=== PATIENT | male | born 1955 | race Caucasian/White ===

== ENCOUNTER → 2020-03-19 14:25 | Outpatient (BNVA) | payer OTHER, SELFPAY | PROVIDERS: PCP Family Medicine; Referring Provider Family Medicine; Visit Provider Internal Medicine | DX: J44.9 Chronic obstructive pulmonary disease, unspecified (principal); J98.4 Other disorders of lung; G47.33 Obstructive sleep apnea (adult) (pediatric); E66.9 Obesity, unspecified; Z68.34 Body mass index [BMI] 34.0-34.9, adult; Z79.899 Other long term (current) drug therapy | CPT/HCPCS: 99202 ==

== ENCOUNTER 2020-03-30 12:46 | Outpatient (REF) | payer OTHER, SELFPAY ==
--- NOTE | 2020-03-30 17:44 | PFT_ITS ---
INDICATION: COPD. SPIROMETRY: The FEV1 to FVC of 35% with an FEV1 of 1.09 L, which is 31% of predicted, and FVC of 3.11 L, which is 67% of predicted. There was a significant response to bronchodilators noted. Also, the patient has severe small airways disease. Maximum voluntary ventilation only 27% of predicted. LUNG VOLUMES: Total lung capacity 113% of predicted with a residual volume of 254% of predicted. DIFFUSION CAPACITY: 48% of predicted. COMPARISONS: I do not have any available. INTERPRETATION: There is an obstructive ventilatory defect consistent with very severe chronic obstructive pulmonary disease. The patient does have a significant response to bronchodilators noted. The patient also has severe small airways disease contributing to a lot of his symptoms as well. His lung volumes also demonstrate significant air trapping due to the small airways disease and also moderate diffusion impairment. Clinical correlation warranted. Jorge Benitez MD MR/MODL / [id number]
== END 2020-03-30 12:47 | disposition home or self-care (01) ==
LOC: HO.RESP 12:46
PROVIDERS: Visit Provider Internal Medicine
DX: J44.9 Chronic obstructive pulmonary disease, unspecified (principal); J98.4 Other disorders of lung; E66.9 Obesity, unspecified
CPT/HCPCS: 94060; 94727; 94729

== ENCOUNTER → 2020-04-20 13:59 | Outpatient (BNVA) | payer OTHER, SELFPAY | PROVIDERS: PCP Internal Medicine; Visit Provider Internal Medicine | DX: G47.33 Obstructive sleep apnea (adult) (pediatric) (principal); E66.9 Obesity, unspecified; J44.9 Chronic obstructive pulmonary disease, unspecified; J45.909 Unspecified asthma, uncomplicated; J30.9 Allergic rhinitis, unspecified | CPT/HCPCS: 99212 ==

== ENCOUNTER → 2020-06-02 13:13 | Outpatient (BNVA) | payer OTHER, SELFPAY | PROVIDERS: PCP Internal Medicine; Visit Provider Internal Medicine | DX: J45.909 Unspecified asthma, uncomplicated (principal); J98.4 Other disorders of lung; E66.9 Obesity, unspecified; G47.33 Obstructive sleep apnea (adult) (pediatric) | CPT/HCPCS: 99212 ==

== ENCOUNTER → 2020-08-06 13:46 | Outpatient (BNVA) | payer OTHER, SELFPAY | PROVIDERS: PCP Internal Medicine; Visit Provider Internal Medicine | DX: G47.33 Obstructive sleep apnea (adult) (pediatric) (principal); J44.9 Chronic obstructive pulmonary disease, unspecified; J98.4 Other disorders of lung; E66.9 Obesity, unspecified; J30.9 Allergic rhinitis, unspecified | CPT/HCPCS: 99212 ==

== ENCOUNTER → 2020-12-01 14:06 | Outpatient (BNVA) | payer OTHER, SELFPAY | PROVIDERS: PCP Internal Medicine; Visit Provider Internal Medicine | DX: J30.9 Allergic rhinitis, unspecified (principal); J45.909 Unspecified asthma, uncomplicated; J44.9 Chronic obstructive pulmonary disease, unspecified; J98.4 Other disorders of lung; E66.9 Obesity, unspecified; G47.33 Obstructive sleep apnea (adult) (pediatric) | CPT/HCPCS: 99212 ==

== ENCOUNTER → 2021-05-17 15:51 | Outpatient (BNVA) | payer OTHER, SELFPAY | PROVIDERS: Visit Provider Internal Medicine | DX: J98.4 Other disorders of lung (principal); J44.9 Chronic obstructive pulmonary disease, unspecified; J45.909 Unspecified asthma, uncomplicated; G47.33 Obstructive sleep apnea (adult) (pediatric); E66.9 Obesity, unspecified; Z68.33 Body mass index [BMI] 33.0-33.9, adult | CPT/HCPCS: 99212 ==

== ENCOUNTER → 2021-11-03 10:04 | Outpatient (BNVA) | payer OTHER, SELFPAY | PROVIDERS: Visit Provider Internal Medicine | DX: J44.1 Chronic obstructive pulmonary disease with (acute) exacerbation (principal); G47.33 Obstructive sleep apnea (adult) (pediatric); J30.9 Allergic rhinitis, unspecified; J98.4 Other disorders of lung; E66.9 Obesity, unspecified; G47.34 Idiopathic sleep related nonobstructive alveolar hypoventilation; Z79.899 Other long term (current) drug therapy; Z99.81 Dependence on supplemental oxygen | CPT/HCPCS: 99212 ==

== ENCOUNTER → 2021-12-20 14:21 | Outpatient (BNVA) | payer OTHER, SELFPAY | PROVIDERS: Visit Provider Internal Medicine | DX: J44.9 Chronic obstructive pulmonary disease, unspecified (principal); J98.4 Other disorders of lung; E66.9 Obesity, unspecified; J30.9 Allergic rhinitis, unspecified; G47.34 Idiopathic sleep related nonobstructive alveolar hypoventilation; G47.33 Obstructive sleep apnea (adult) (pediatric); Z79.899 Other long term (current) drug therapy; Z99.89 Dependence on other enabling machines and devices | CPT/HCPCS: 99212 ==

== ENCOUNTER → 2022-04-27 14:43 | Outpatient (BNVA) | payer OTHER, SELFPAY | PROVIDERS: Visit Provider Internal Medicine | DX: J44.9 Chronic obstructive pulmonary disease, unspecified (principal); J30.9 Allergic rhinitis, unspecified; J98.4 Other disorders of lung; G47.33 Obstructive sleep apnea (adult) (pediatric); G47.34 Idiopathic sleep related nonobstructive alveolar hypoventilation; E66.9 Obesity, unspecified; Z68.36 Body mass index [BMI] 36.0-36.9, adult | CPT/HCPCS: 99212 ==

== ENCOUNTER → 2022-05-25 14:39 | Outpatient (BNVA) | payer OTHER, SELFPAY | PROVIDERS: Visit Provider Internal Medicine | DX: J44.9 Chronic obstructive pulmonary disease, unspecified (principal); J98.4 Other disorders of lung; J45.909 Unspecified asthma, uncomplicated; G47.33 Obstructive sleep apnea (adult) (pediatric); G47.34 Idiopathic sleep related nonobstructive alveolar hypoventilation; E66.9 Obesity, unspecified | CPT/HCPCS: 99212 ==

== ENCOUNTER → 2022-08-23 13:34 | Outpatient (BNVA) | payer OTHER, SELFPAY | PROVIDERS: PCP Family Medicine; Visit Provider Internal Medicine | DX: J44.9 Chronic obstructive pulmonary disease, unspecified (principal); J45.909 Unspecified asthma, uncomplicated; G47.33 Obstructive sleep apnea (adult) (pediatric); E66.9 Obesity, unspecified | CPT/HCPCS: 99212 ==

== ENCOUNTER → 2022-10-05 10:12 | Outpatient (BNVA) | payer OTHER, SELFPAY | PROVIDERS: PCP Family Medicine; Visit Provider Internal Medicine | DX: J44.9 Chronic obstructive pulmonary disease, unspecified (principal); J45.909 Unspecified asthma, uncomplicated; J98.4 Other disorders of lung; J96.91 Respiratory failure, unspecified with hypoxia; G47.33 Obstructive sleep apnea (adult) (pediatric); E66.9 Obesity, unspecified; Z99.81 Dependence on supplemental oxygen | CPT/HCPCS: 99212 ==

== ENCOUNTER 2022-12-27 10:11 | Outpatient (AMB) | payer OTHER, SELFPAY ==
--- NOTE | 2022-12-27 10:15 | A.OFFVIS_ITS ---
Intake Vital Signs 12/27/22 10:16 Weight 208 lb 5.389 oz BP 122/66 Blood Pressure Location Lt brachial Pulse 87 Pulse Source Pulse Oximeter Pulse Oximetry (%) 93 Oxygen Delivery Method Room Air Intake Visit Reasons: Nephrectomy - 01/20 - [facility] Allergies beta mehul Allergy (Unknown, Uncoded 12/27/22 10:20) Unknown Medication List - Last Reconciled 12/27/22 by Aileen Louis LPN acetaminophen 650 mg PO Q4H PRN albuterol sulfate 90 mcg/actuation 1 puff inhalation QID albuterol sulfate 2.5 mg inhalation Q4-6H PRN aspirin 81 mg PO DAILY cetirizine (Zyrtec) 10 mg PO DAILY diltiazem HCl ER 300 mg PO DAILY fluticasone propion-salmeterol 500-50 mcg/dose (Wixela Inhub) 1 inh inhalation Q12H 90 days fluticasone propionate 50 mcg/actuation (Flonase Allergy Relief) 1 spray intranasal DAILY hydralazine 100 mg PO TID montelukast 10 mg PO BEDTIME olodaterol 2.5 mcg/actuation 2 inhalations inhalation DAILY omeprazole 20 mg PO DAILY sertraline 50 mg PO DAILY tamsulosin 0.4 mg PO DAILY HPI Nephrectomy - 01/20 - [facility] HPI Details Avinash is a very pleasant 67 year old male, former smoker, with underlying obstructive sleep apnea compliant with CPAP and severe COPD. He is moderately controlled on Stiolto, Wixela and albuterol MDI/neb, with mild dyspnea on exertion and intermittent wheezing. Today he presents for preoperative pulmonary evaluation for a left nephrectomy scheduled on 01/20/[address] Rock for a renal mass. He was admitted to [facility] after a considerable amount of hematuria and myocardial infarction approximately three months ago. At that time, he required supplemental oxygen and rehabilitation, but has not required additional oxygen for the past two months. He denies any recent respi ratory infections. Since undergoing physical therapy, he felt his endurance has significantly improved and as if he is back to baseline from a respiratory standpoint. He is being followed by cardiology and will be having a loop recorder implanted on 01/06/23. [facility] Medical History (Updated 12/27/22 @ 15:00 by Yue Drew NP) Actinic keratosis Allergic rhinitis Allergic rhinitis Asthma COPD (chronic obstructive pulmonary disease) COPD exacerbation Diverticulosis Esophageal reflux HTN (hypertension) Nocturnal hypoxemia Obesity DEANGELO (obstructive sleep apnea) Respiratory failure with hypoxia Restrictive lung disease Restrictive lung disease secondary to obesity Sleep apnea Solitary lung nodule Social History Patient Tobacco Use Status: Former Tobacco user Review of Systems Const Denies chills, Denies excessive sweating, Denies fever(s), Denies headache(s) and Denies night sweats Eyes Denies dry eyes, Denies irritation and Denies itchy eyes ENT Reports Normal hearing present and Denies headache(s) Card Denies chest pain, Denies chest pain at rest, Denies chest pain with activity, Denies claudication, Denies leg edema, Denies dyspnea, Denies orthopnea and Denies paroxysmal nocturnal dyspnea Resp Denies chest congestion, Denies cough, Denies excessive phlegm production, Denies pain on inspiration, Denies pain with cough, Denies dyspnea and Denies stridor Musc Denies myalgias Neuro Reports Normal hearing present and Denies headache(s) Endo Denies excessive sweating Jacob/Lymph Denies lymphadenopathy Aller/Immun Denies itchy eyes and Denies seasonal rhinorrhea Physical Exam Vital Signs: Last Vital Signs Pulse 87 12/27/22 10:16 BP 122/66 12/27/22 10:16 Pulse Ox 93 12/27/22 10:16 Oxygen Delivery Method Room Air 12/27/22 10:16 Const General: cooperative, healthy appearing, comfortable, no acute distress, well developed and alert Nutritional Appearance: obese Orientation/consciousness: patient oriented x3 Limitations: no limitations HEENT Head: Yes normal to inspection, Yes normocephalic and Yes atraumatic Ears: hearing grossly normal bilaterally and external ears normal Eyes General: appearance normal, both eyes and all related structures Eyelids: Yes eyelids normal Sclerae: sclerae normal EOM: EOMs intact bilaterally Neck Neck: Yes normal visual inspection and Yes no lymphadenopathy Lymphatic: no lymphadenopathy noted Chest Chest palpation & inspection: normal inspection of the chest Resp Effort & Inspection: normal respiratory effort, able to speak in complete sentences, no audible wheezes, no cough, no stridor, not tachypneic, no tripod positioning and no use of accessory muscles Auscultation: clear to auscultation bilaterally Cardio Jugular venous distension: no JVD Rate: regular rate Rhythm: regular rhythm Skin Other: warm, dry General skin exam: no rashes or lesions noted Neuro General: patient oriented x3 Cranial nerves: Yes Normal hearing present Cognition (Neuro): normal cognition Gait exam (Neuro): Normal gait present Extrem General: Yes normal to inspection, Yes capillary refill normal, Yes no clubbing, cyanosis or edema and Yes no pedal edema Psych Appearance: grossly normal and well kempt Speech and movement: Normal speech and movement present and Clear speech present Affect: normal affect Attitude: cooperative Thought process: Normal thought process present Thought content: Normal thought content present Insight: Good insight present (Psych) Judgement: Good judgement present (Psych) Office Procedures 6 Minute Walk Time:: 11:00 SPO2 % at rest: 95 Pulse at rest: 73 SPO2 % during excercise: 93 Pulse during excercise: 138 SPO2 % after excercise: 94 Pulse after excercise: 90 Distance in yards walked: 200 Karl Score: 5 Performance Observations:: Avinash walked on level ground without assistance, he walked on room air maintaining his SPO2 at 93%, no supplemental O2 needed. His HR did jump to 138 at 2 mins of walking, with a brief rest his HR recovered to 88 bpm. He did c/o of increased SOB with [place]. [id number] - 6 Minute Walk Spirometry Testing Spirometry Comments: Spirometry done in the office, Yue as the results results scanned to his chart. [id number]- Spirometry Results Reviewed Results Reviewed: Assessment & Plan Assessment & Plan (1) Encounter for preoperative pulmonary examination: Code(s): Z01.811 - Encounter for preprocedural respiratory examination (2) COPD (chronic obstructive pulmonary disease): Comment: Code(s): J44.9 - Chronic obstructive pulmonary disease, unspecified (3) Restrictive lung disease secondary to obesity: Code(s): J98.4 - Other disorders of lung; E66.9 - Obesity, unspecified (4) DEANGELO (obstructive sleep apnea): Code(s): G47.33 - Obstructive sleep apnea (adult) (pediatric) Plan Spirometry revealed severe obstructive defect, unchanged from prior spirometry two years ago. Full report above. 6MWT was performed and patient does not require any supplemental oxygen at this time. He feels as though he is back to his baseline using Stiolto, Wixela and albuterol MDI/neb. He denies any recent respiratory infections and there was no wheezing appreciated on exam. Secondary to patient's advanced COPD with moderate decrease in diffusion capacity and history of DEANGELO on CPAP therapy he is at intermediate risk for pulmonary perioperative complications. Consider extubation to BiPAP and perioperative bronchodilators. All questions were answered and patient is in agreement of plan. Will follow up at his regularly scheduled appointment with Dr. Palomo in January. Orders: Orders AMB 6 minute walk Today J44.9 - Chronic obstructive pulmonary disease, unspecified AMB Spirometry Testing Today J44.9 - Chronic obstructive pulmonary disease, unspecified Coding Level of Care Code Est Pt Level 4 (43409) Diagnoses Encounter for preoperative pulmonary examination Z01.811 COPD (chronic obstructive pulmonary disease) J44.9 Restrictive lung disease secondary to obesity J98.4; E66.9 DEANGELO (obstructive sleep apnea) G47.33 CPT Codes Coding ([id number]) Spirometry - CPT: 83693- Spirometry ([id number])
[2022-12-27 10:16] VITALS: BP 122/66; PULSE 87; O2SAT 93
[2022-12-27 11:17] VITALS: PULSE 73; O2SAT 95
== END 2022-12-27 11:24 | disposition home or self-care (01) ==
PROVIDERS: PCP Family Medicine; Visit Provider Nurse Practitioner Family
DX: Z01.811 Encounter for preprocedural respiratory examination (principal); J44.9 Chronic obstructive pulmonary disease, unspecified; J98.4 Other disorders of lung; E66.9 Obesity, unspecified; G47.33 Obstructive sleep apnea (adult) (pediatric)
CPT/HCPCS: 94010; 94618; 99214

== ENCOUNTER → 2022-12-27 10:11 | Outpatient (BNVA) | payer OTHER, SELFPAY | PROVIDERS: PCP Family Medicine; Visit Provider Nurse Practitioner Family | DX: Z01.811 Encounter for preprocedural respiratory examination (principal); J44.9 Chronic obstructive pulmonary disease, unspecified; J98.4 Other disorders of lung; G47.33 Obstructive sleep apnea (adult) (pediatric); N28.89 Other specified disorders of kidney and ureter | CPT/HCPCS: 94010; 94618; 99212 ==

== ENCOUNTER 2023-02-21 13:04 | Outpatient (AMB) | payer OTHER, SELFPAY ==
[2023-02-21 13:17] VITALS: BP 102/60; PULSE 80; O2SAT 95; BMI 29.1
--- NOTE | 2023-02-21 13:17 | MHC.OFFVIS ---
Intake Vital Signs 02/21/23 13:17 Height 5 ft 10 in Weight 203 lb BMI 29.1 BP 102/60 Blood Pressure Location Lt brachial Position Sitting Pulse 80 Pulse Source Pulse Oximeter Pulse Oximetry (%) 95 Oxygen Delivery Method Room Air Intake Visit Reasons: copd Intake Note: pt is here for follow up and states he had his kidney out, and feeling some short of breath, and states his copd comes and goes in stages, right now first thing in am and pm he starts to labor to breath. He does have a cpap and uses it as much as he can. 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: No Allergies beta mehul Allergy (Unknown, Uncoded 02/21/23 13:36) Unknown Medication List - Last Reconciled 02/21/23 by Mireya Palomo MD acetaminophen 650 mg PO Q4H PRN albuterol sulfate 90 mcg/actuation 1 puff inhalation QID albuterol sulfate 2.5 mg inhalation Q4-6H PRN aspirin 81 mg PO DAILY cetirizine (Zyrtec) 10 mg PO DAILY diltiazem HCl ER 300 mg PO DAILY fluticasone propion-salmeterol 500-50 mcg/dose (Wixela Inhub) 1 inh inhalation Q12H 90 days fluticasone propionate 50 mcg/actuation (Flonase Allergy Relief) 1 spray intranasal DAILY hydralazine 100 mg PO TID montelukast 10 mg PO BEDTIME olodaterol 2.5 mcg/actuation 2 inhalations inhalation DAILY omeprazole 20 mg PO DAILY sertraline 50 mg PO DAILY tamsulosin 0.4 mg PO DAILY Do you need a note to return to daycare/school/sports/work: No HPI copd HPI Details THIS 67 YEARS OLD VERY PLEASANT GENTLEMAN IS STATUS POST LEFT NEPHRECTOMY, BY DR. GARCIA AT [facility] ABOUT 8 WEEKS AGO. HE HAS RECOVERED VERY WELL. AT. THIS TIME FEELING WELL HE SAY IS HIS BREATHING IS REMAINING VERY STABLE EXCEPT FOR OCCASIONAL COUGH AND WHEEZING. HE ALSO HAS OBSTRUCTIVE SLEEP APNEA AND USES CPAP, BUT ONLY FOR ABOUT 3-4 HOURS PER NIGHT THAN THE MASK IS THROWN OFF. HE HAS LOST WEIGHT AND HIS BREATHING AT NIGHT IS GETTING BETTER. DURING THE DAYTIME HE IS ABLE TO WALK AROUND WITHOUT MUCH DISCOMFORT. PRIOR TO HIS SURGERY WE HAD CHECKED HIM FOR NEED OF OXYGEN AND HE DID NOT QUALIFY. [facility] Medical History Respiratory failure with hypoxia Nocturnal hypoxemia COPD exacerbation Allergic rhinitis Asthma Restrictive lung disease secondary to obesity COPD (chronic obstructive pulmonary disease) DEANGELO (obstructive sleep apnea) Obesity Solitary lung nodule Sleep apnea Restrictive lung disease Esophageal reflux Diverticulosis HTN (hypertension) Allergic rhinitis Actinic keratosis Social History Patient Tobacco Use Status: Former Tobacco user Review of Systems Const All systems reviewed & are unremarkable except as noted in HPI and below Eyes Reports no additional complaints ENT Reports nasal congestion (Mild off and on) Card Denies chest pain, Denies irregular heart rhythm and Denies leg edema Resp Reports as per HPI GI Reports no additional complaints Reports no additional complaints Musc Reports no additional complaints Skin/Breast Reports system reviewed and no additional complaints, except as documented Neuro Reports no additional complaints Psych Reports no additional complaints Endo Reports no additional complaints Physical Exam Vital Signs: Last Vital Signs Pulse 80 02/21/23 13:17 BP 102/60 02/21/23 13:17 Pulse Ox 95 02/21/23 13:17 Oxygen Delivery Method Room Air 02/21/23 13:17 BMI result Body Mass Index 29.1 Const Other: He has lost significant amount of weight since his last visit. General: comfortable, no acute distress (But somewhat short of breath during conversation), alert and awake Orientation/consciousness: patient oriented x3 HEENT Head: Yes normal to inspection General nose exam: No nasal polyps present and No nasal discharge present Face and sinus: Yes sinuses nontender Mouth: oropharynx normal Throat: Yes posterior oropharynx normal Eyes General: appearance normal, both eyes and all related structures Neck Neck: Yes normal visual inspection, Yes no lymphadenopathy, Yes trachea midline and Yes no JVD Thyroid: Thyroid normal Chest Chest palpation & inspection: normal inspection of the chest, normal palpation of entire chest wall and no tenderness Resp Other: Percussion note is resonant, breath sounds are distant with prolonged expiratory phase. LUNGS ARE CLEAR TODAY AND THERE ARE NO WHEEZES OR CREPITATIONS. Cardio Palpation: normal PMI Rate: regular rate and tachycardic Rhythm: regular rhythm Heart sounds: no gallops and no murmurs GI Inspection: Yes normal to inspection (THERE IS A SURGICAL SCAR WELL HEALED IN THE LEFT MID ABDOMEN) Palpation (GI): Soft to palpation, nontender, No hepatosplenomegaly present and no masses Auscultation: normal bowel sounds Back/Spine/Pelvis Thoracic/Lumbar Spine: thoracic and lumbar spine normal to inspection Skin General skin exam: no rashes or lesions noted Neuro General: patient oriented x3 and no focal motor deficits Cranial nerves: Yes CN's II-XII intact bilaterally Extrem General: Yes normal to inspection, Yes no clubbing, cyanosis or edema and Yes no calf tenderness Psych Appearance: grossly normal and well kempt Speech and movement: Normal speech and movement present Assessment & Plan Assessment & Plan (1) Allergic rhinitis: Comment: CONTROLLED , CONT. SINGULAIR 10 MG DAILY CETRIZINE 10 MG ONCE A DAY PRN . Code(s): J30.9 - Allergic rhinitis, unspecified (2) COPD (chronic obstructive pulmonary disease): Comment: WELL CONTROLLED AT THIS TIME, AND STABLE TX ; WIXELA 500-51 INHALATION B.I.D.. STIOLTO . 2 INHALATIONS DAILY ALBUTEROL HFA OR ALBUTEROL IN THE NEBULIZER Q 4-6 HOURS ONLY P.R.N.. Code(s): J44.9 - Chronic obstructive pulmonary disease, unspecified (3) Restrictive lung disease secondary to obesity: Comment: HE HAS SOME,RESTRICTION SECONDARY TO OBESITY, IT SHOULD IMPROVE HE LOSES WEIGHT. HE IS ALSO ADVISED TO DO DEEP BREATHING EXERCISES Code(s): J98.4 - Other disorders of lung; E66.9 - Obesity, unspecified (4) Obesity: Comment: Had a good discussion , Has lost 25 LBs in the last month and feels better . Continues to lose. More weight slowly Advised to Continue doing regular exercise on the treadmill and may walk at least one mile a day . Reduce intake of Carbs , Any further weight loss seems to be difficult for him. Code(s): E66.9 - Obesity, unspecified (5) DEANGELO (obstructive sleep apnea): Comment: HE IS A WELL KNOWN CASE OF OBSTRUCTIVE SLEEP APNEA, USE OF CPAP REMAINS SUBOPTIMAL , HIS USAGE IT ONLY ABOUT 3-4 HOURS PER NIGHT. ENCOURAGED TO USE CPAP MORE THAN 4 HOURS PER NIGHT. ALSO ENCOURAGED TO KEEP ON LOSING WEIGHT AND ONCE HIS WEIGHT IS BELOW 200 LBs HIS AMOUNT OF SLEEP APNEA MAY RESOLVE SIGNIFICANTLY. Code(s): G47.33 - Obstructive sleep apnea (adult) (pediatric) Medications: Refilled fluticasone propion-salmeterol 500-50 mcg/dose (Wixela Inhub) 90 days supply 1 inh inhalation Q12H 60 ea 3RF copd 90 days Coding Level of Care Code Est Pt Level 3 (49400) Diagnoses Allergic rhinitis J30.9 COPD (chronic obstructive pulmonary disease) J44.9 Restrictive lung disease secondary to obesity J98.4; E66.9 Obesity E66.9 DEANGELO (obstructive sleep apnea) G47.33
== END 2023-02-21 13:36 | disposition home or self-care (01) ==
PROVIDERS: PCP Family Medicine; Visit Provider Internal Medicine
DX: J30.9 Allergic rhinitis, unspecified (principal); J44.9 Chronic obstructive pulmonary disease, unspecified; J98.4 Other disorders of lung; E66.9 Obesity, unspecified; G47.33 Obstructive sleep apnea (adult) (pediatric)
CPT/HCPCS: 99213

== ENCOUNTER → 2023-02-21 13:04 | Outpatient (BNVA) | payer OTHER, SELFPAY | PROVIDERS: Visit Provider Internal Medicine | DX: J44.1 Chronic obstructive pulmonary disease with (acute) exacerbation (principal); J98.4 Other disorders of lung; G47.33 Obstructive sleep apnea (adult) (pediatric); G47.34 Idiopathic sleep related nonobstructive alveolar hypoventilation; R91.1 Solitary pulmonary nodule; Z87.891 Personal history of nicotine dependence; Z90.5 Acquired absence of kidney; Z99.89 Dependence on other enabling machines and devices | CPT/HCPCS: 99212 ==

== ENCOUNTER 2023-06-27 12:51 | Outpatient (AMB) | payer OTHER, SELFPAY ==
--- NOTE | 2023-06-27 13:11 | MHC.OFFVIS ---
Intake Vital Signs 06/27/23 13:12 Height 5 ft 10 in Weight 217 lb 2.485 oz BMI 31.2 BP 110/72 Blood Pressure Location Lt brachial Position Sitting Pulse 75 Pulse Source Pulse Oximeter Pulse Oximetry (%) 93 Oxygen Delivery Method Room Air Intake Visit Reasons: copd Intake Note: pt is here for follow up and states he has some fatigue from infusion therapy but states he has been having nasal congestion which than makes him breath through his mouth, causing very dry mouth. Digital Press Operator Required: No Allergies beta mehul Allergy (Unknown, Uncoded 06/27/23 13:27) Unknown Medication List - Last Reconciled 06/27/23 by Mireya Palomo MD acetaminophen 650 mg PO Q4H PRN albuterol sulfate 90 mcg/actuation 1 puff inhalation QID albuterol sulfate 2.5 mg inhalation Q4-6H PRN aspirin 81 mg PO DAILY cetirizine (Zyrtec) 10 mg PO DAILY diltiazem HCl ER 300 mg PO DAILY fluticasone propion-salmeterol 500-50 mcg/dose (Wixela Inhub) 1 inh inhalation Q12H 90 days fluticasone propionate 50 mcg/actuation (Flonase Allergy Relief) 1 spray intranasal DAILY hydralazine 100 mg PO TID montelukast 10 mg PO BEDTIME omeprazole 20 mg PO DAILY sertraline 50 mg PO DAILY tamsulosin 0.4 mg PO DAILY tiotropium-olodaterol 2.5-2.5 mcg/actuation (Stiolto Respimat) 2 puffs inhalation DAILY 90 days Do you need a note to return to daycare/school/sports/work: No HPI copd HPI Details 67 YEARS OLD GENTLEMAN WITH NURSES OF COPD, OBESITY AND OBSTRUCTIVE SLEEP APNEA IS HERE FOR FOLLOW-UP AFTER 4 MONTHS. Breathing bartlett he is doing okay except that he gets short of breath on walking around or climbing any stairs. He feels congested but mostly in his nose and sinuses. He has very little cough or expectoration and also denies any wheezing. Currently he is still on infusion therapy once a month for his anal cancer, post nephrectomy. For obstructive sleep apnea he does use the CPAP every night however he has discomfort due to nasal congestion. He wakes up with a dry mouth. His mask is fullface , and he does use the humidification. [facility] Medical History Respiratory failure with hypoxia Nocturnal hypoxemia COPD exacerbation Allergic rhinitis Asthma Restrictive lung disease secondary to obesity COPD (chronic obstructive pulmonary disease) DEANGELO (obstructive sleep apnea) Obesity Solitary lung nodule Sleep apnea Restrictive lung disease Esophageal reflux Diverticulosis HTN (hypertension) Allergic rhinitis Actinic keratosis Social History Patient Tobacco Use Status: Former Tobacco user Review of Systems Const All systems reviewed & are unremarkable except as noted in HPI and below Eyes Reports no additional complaints ENT Reports nasal congestion (Mild off and on) Card Denies chest pain, Denies irregular heart rhythm and Denies leg edema Resp Reports as per HPI GI Reports no additional complaints Reports no additional complaints Musc Reports no additional complaints Skin/Breast Reports system reviewed and no additional complaints, except as documented Neuro Reports no additional complaints Psych Reports no additional complaints Endo Reports no additional complaints Physical Exam Vital Signs: Last Vital Signs Pulse 75 06/27/23 13:12 BP 110/72 06/27/23 13:12 Pulse Ox 93 06/27/23 13:12 Oxygen Delivery Method Room Air 06/27/23 13:12 BMI result Body Mass Index 31.2 Const Other: He has lost significant amount of weight since his last visit. General: comfortable, no acute distress (But somewhat short of breath during conversation), alert and awake Orientation/consciousness: patient oriented x3 HEENT Head: Yes normal to inspection General nose exam: No nasal polyps present, No nasal discharge present and Other nasal findings present (Mild nasal congestion) Face and sinus: Yes sinuses nontender Mouth: oropharynx normal Throat: Yes posterior oropharynx normal Eyes General: appearance normal, both eyes and all related structures Neck Neck: Yes normal visual inspection, Yes no lymphadenopathy, Yes trachea midline and Yes no JVD Thyroid: Thyroid normal Chest Chest palpation & inspection: normal inspection of the chest, normal palpation of entire chest wall and no tenderness Resp Other: Percussion note is resonant, breath sounds are distant with prolonged expiratory phase. LUNGS ARE CLEAR TODAY AND THERE ARE NO WHEEZES OR CREPITATIONS. Cardio Palpation: normal PMI Rate: regular rate and tachycardic Rhythm: regular rhythm Heart sounds: no gallops and no murmurs GI Inspection: Yes normal to inspection (THERE IS A SURGICAL SCAR WELL HEALED IN THE LEFT MID ABDOMEN) Palpation (GI): Soft to palpation, nontender, No hepatosplenomegaly present and no masses Auscultation: normal bowel sounds Back/Spine/Pelvis Thoracic/Lumbar Spine: thoracic and lumbar spine normal to inspection Skin General skin exam: rashes and/or lesions noted (Has the erythematous rash on both forearms, secondary to infusion therapy) Neuro General: patient oriented x3 and no focal motor deficits Cranial nerves: Yes CN's II-XII intact bilaterally Extrem General: Yes normal to inspection, Yes no clubbing, cyanosis or edema and Yes no calf tenderness Psych Appearance: grossly normal and well kempt Speech and movement: Normal speech and movement present Assessment & Plan Assessment & Plan (1) Nocturnal hypoxemia: Comment: In his case NOCTURNAL HYPOXEMIA is part of his obstructive sleep apnea/hypoventilation syndrome. He is advised to continue using O2 2 L/minute along with CPAP at night. Code(s): G47.34 - Idiopathic sleep related nonobstructive alveolar hypoventilation Plan: as above (2) Allergic rhinitis: Comment: CONTROLLED , CONT. SINGULAIR 10 MG DAILY CETRIZINE 10 MG ONCE A DAY PRN . Code(s): J30.9 - Allergic rhinitis, unspecified Plan: Also advised to use Flonase 2 spray every day and he can use it during the day any time. At night before putting on the CPAP mask , he can use Azelastin nasal spray 1 spray in each nostril before putting on the CPAP. Script sent to [facility]. (3) COPD (chronic obstructive pulmonary disease): Comment: WELL CONTROLLED AT THIS TIME, AND STABLE TX ; WIXELA The strength is reduced to 250-50. New script sent to [facility]. STIOLTO . 2 INHALATIONS DAILY ALBUTEROL HFA OR ALBUTEROL IN THE NEBULIZER Q 4-6 HOURS ONLY P.R.N.. Code(s): J44.9 - Chronic obstructive pulmonary disease, unspecified Plan: Continue the current medications. The does of Wixela is reduced to 250-51 inhalation b.i.d. (4) DEANGELO (obstructive sleep apnea): Comment: HE IS A WELL KNOWN CASE OF OBSTRUCTIVE SLEEP APNEA, USE OF CPAP REMAINS SUBOPTIMAL , HIS USAGE IS ONLY ABOUT 3-4 HOURS PER NIGHT. ENCOURAGED TO USE CPAP MORE THAN 4 HOURS PER NIGHT. ALSO ENCOURAGED TO KEEP ON LOSING WEIGHT AND ONCE HIS WEIGHT IS BELOW 200 LBs HIS AMOUNT OF SLEEP APNEA MAY RESOLVE SIGNIFICANTLY. Code(s): G47.33 - Obstructive sleep apnea (adult) (pediatric) Plan: USE AZELASTIN NASAL SPRAY 1 SPRAY IN EACH NOSTRIL BEFORE PUTTING ON THE CPAP. Medications: New fluticasone propion-salmeterol 250-50 mcg/dose (Wixela Inhub) 1 inh inhalation BID 30 days 60 ea 5RF COPD azelastine administer into each nostril 1 spray intranasal BEDTIME 30 days 30 mL 3RF ALLERGIC RHINITIS Coding Level of Care Code Est Pt Level 4 (50968) Diagnoses Nocturnal hypoxemia G47.34 Allergic rhinitis J30.9 COPD (chronic obstructive pulmonary disease) J44.9 DEANGELO (obstructive sleep apnea) G47.33
[2023-06-27 13:12] VITALS: BP 110/72; PULSE 75; O2SAT 93; BMI 31.2
== END 2023-06-27 13:37 | disposition home or self-care (01) ==
PROVIDERS: PCP Family Medicine; Visit Provider Internal Medicine
DX: G47.34 Idiopathic sleep related nonobstructive alveolar hypoventilation (principal); J30.9 Allergic rhinitis, unspecified; J44.9 Chronic obstructive pulmonary disease, unspecified; G47.33 Obstructive sleep apnea (adult) (pediatric)
CPT/HCPCS: 99214

== ENCOUNTER → 2023-06-27 12:51 | Outpatient (BNVA) | payer OTHER, SELFPAY | PROVIDERS: PCP Family Medicine; Visit Provider Internal Medicine | DX: G47.34 Idiopathic sleep related nonobstructive alveolar hypoventilation (principal); J30.9 Allergic rhinitis, unspecified; J44.9 Chronic obstructive pulmonary disease, unspecified; G47.33 Obstructive sleep apnea (adult) (pediatric) | CPT/HCPCS: 99212 ==

== ENCOUNTER 2023-10-24 12:45 | Outpatient (AMB) | payer OTHER, SELFPAY ==
[2023-10-24 13:12] VITALS: BP 110/62; PULSE 101; O2SAT 96; BMI 28.0
--- NOTE | 2023-10-24 13:12 | A.OFFVIS_ITS ---
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 Required: No Allergies beta mehul Allergy (Unknown, Uncoded 10/24/23 13:28) Unknown Medication List - Last Reconciled 10/24/23 by Mireya Palomo MD acetaminophen 650 mg PO Q4H PRN albuterol sulfate 90 mcg/actuation 1 puff inhalation QID albuterol sulfate 2.5 mg inhalation Q4-6H PRN aspirin 81 mg PO DAILY azelastine 1 spray intranasal BEDTIME 30 days azelastine 1 spray intranasal BID 30 days MDD ALLERGIC RHINITIS / DEANGELO cetirizine (Zyrtec) 10 mg PO DAILY diltiazem HCl ER 300 mg PO DAILY fluticasone propion-salmeterol 500-50 mcg/dose (Wixela Inhub) 1 inh inhalation Q12H 90 days fluticasone propionate 50 mcg/actuation (Flonase Allergy Relief) 1 spray intranasal DAILY hydralazine 100 mg PO TID montelukast 10 mg PO BEDTIME omeprazole 20 mg PO DAILY sertraline 50 mg PO DAILY tamsulosin 0.4 mg PO DAILY tiotropium-olodaterol 2.5-2.5 mcg/actuation (Stiolto Respimat) 2 puffs inhalation DAILY 90 days Do you need a note to return to daycare/school/sports/work: No HPI HPI copd: Details: 67 years old , is here for follow-up for his obstructive sleep apnea as well as COPD. Breathing is remaining stable except that he has intermittent cough, sometime have bouts of wheezing, and gets short of breath on walking fast or climbing stairs. He continues to use his inhalers, . Regularly He his sleep apnea is being treated with the CPAP which he uses every night. Is being followed by the [place] outpatient service and we do not have any compliance report. He is also being treated for left renal cancer for which he has had left nephrectomy, and continues to get the IV infusion therapy every 2 weeks. Lately he has lost about 15 lb of weight, unintentionally. Not knowing what could be the reason. He has remote history of smoking but quit many years ago. He is being followed by his travel rn as well as oncologist on a regular basis. [facility] Medical History Respiratory failure with hypoxia Nocturnal hypoxemia COPD exacerbation Allergic rhinitis Asthma Restrictive lung disease secondary to obesity COPD (chronic obstructive pulmonary disease) DEANGELO (obstructive sleep apnea) Obesity Solitary lung nodule Sleep apnea Restrictive lung disease Esophageal reflux Diverticulosis HTN (hypertension) Allergic rhinitis Actinic keratosis Social History Patient Tobacco Use Status: Former Tobacco user Review of Systems Const All systems reviewed & are unremarkable except as noted in HPI and below Eyes Reports no additional complaints ENT Reports nasal congestion (Mild off and on) Card Denies chest pain, Denies irregular heart rhythm and Denies leg edema Resp Reports as per HPI GI Reports no additional complaints Reports no additional complaints Musc Reports no additional complaints Skin/Breast Reports system reviewed and no additional complaints, except as documented Neuro Reports no additional complaints Psych Reports no additional complaints Endo Reports no additional complaints Physical Exam Vital Signs: Last Vital Signs Pulse 101 H 10/24/23 13:12 BP 110/62 10/24/23 13:12 Pulse Ox 96 10/24/23 13:12 Oxygen Delivery Method Room Air 10/24/23 13:12 BMI result Body Mass Index 28.0 Const Other: He has lost significant amount of weight since his last visit. General: comfortable, no acute distress (But somewhat short of breath during conversation), alert and awake Orientation/consciousness: patient oriented x3 HEENT Head: Yes normal to inspection General nose exam: No nasal polyps present, No nasal discharge present and Other nasal findings present (Mild nasal congestion) Face and sinus: Yes sinuses nontender Mouth: oropharynx normal Throat: Yes posterior oropharynx normal Eyes General: appearance normal, both eyes and all related structures Neck Neck: Yes normal visual inspection, Yes no lymphadenopathy, Yes trachea midline and Yes no JVD Thyroid: Thyroid normal Chest Chest palpation & inspection: normal inspection of the chest, normal palpation of entire chest wall and no tenderness Resp Other: Percussion note is resonant, breath sounds are distant with prolonged expiratory phase. LUNGS ARE CLEAR TODAY AND THERE ARE NO WHEEZES OR CREPITATIONS. Cardio Palpation: normal PMI Rate: regular rate and tachycardic Rhythm: regular rhythm Heart sounds: no gallops and no murmurs GI Inspection: Yes normal to inspection (THERE IS A SURGICAL SCAR WELL HEALED IN THE LEFT MID ABDOMEN) Palpation (GI): Soft to palpation, nontender, No hepatosplenomegaly present and no masses Auscultation: normal bowel sounds Back/Spine/Pelvis Thoracic/Lumbar Spine: thoracic and lumbar spine normal to inspection Skin General skin exam: rashes and/or lesions noted (Has the erythematous rash on both forearms, secondary to infusion therapy) Neuro General: patient oriented x3 and no focal motor deficits Cranial nerves: Yes CN's II-XII intact bilaterally Extrem General: Yes normal to inspection, Yes no clubbing, cyanosis or edema and Yes no calf tenderness Psych Appearance: grossly normal and well kempt Speech and movement: Normal speech and movement present Assessment & Plan Assessment & Plan (1) COPD (chronic obstructive pulmonary disease): Comment: HE HAS MODERATELY SEVERE OBSTRUCTIVE AIRWAY DISORDER, WELL CONTROLLED AT THIS TIME, AND STABLE. HE GETS SHORT OF BREATH MAINLY WHEN HE BENDS DOWN TO CUSTOMER SUPPORT ASSOCIATE SOMETHING. Code(s): J44.9 - Chronic obstructive pulmonary disease, unspecified Category: Medical Plan: [place] ; WIXELA The strength is reduced to 250-50. New script sent to [facility]. STIOLTO . 2 INHALATIONS DAILY ALBUTEROL HFA OR ALBUTEROL IN THE NEBULIZER Q 4-6 HOURS ONLY P.R.N.. (2) Restrictive lung disease secondary to obesity: Comment: HE HAS SOME,RESTRICTION SECONDARY TO OBESITY, HE HAD LOST WEIGHT, CLINICALLY I FEEL THAT HIS RESTRICTIVE DISORDER IS MUCH LESS. Code(s): J98.4 - Other disorders of lung; E66.9 - Obesity, unspecified Category: Medical Plan: CONTINUE TO DO DEEP BREATHING EXERCISES 3 TIMES A DAY (3) Allergic rhinitis: Comment: AT PRESENT WELL CONTROLLED CONTROLLED , Code(s): J30.9 - Allergic rhinitis, unspecified Category: Medical Plan: CONT. SINGULAIR 10 MG DAILY FLONASE -50 1 SPRAY IN EACH NOSTRIL DAILY CETRIZINE 10 MG ONCE A DAY PRN . (4) Nocturnal hypoxemia: Comment: In his case NOCTURNAL HYPOXEMIA is part of his obstructive sleep apnea/hypoventilation syndrome. HE HAS BEEN USING O2 2 L/MINUTE ALONG WITH THE CPAP, BUT NOT REGULARLY. Code(s): G47.34 - Idiopathic sleep related nonobstructive alveolar hypoventilation Category: Medical Plan: ADVISED TO USE O2 2 L/MINUTE ALONG WITH THE CPAP (5) DEANGELO (obstructive sleep apnea): Comment: HE IS A WELL KNOWN CASE OF OBSTRUCTIVE SLEEP APNEA, WE DO NOT HAVE THE COMPLIANCE REPORT. HE CLAIMS THAT HE IS USING THE CPAP AT LEAST FOR 3-4 HOURS EVERY NIGHT Code(s): G47.33 - Obstructive sleep apnea (adult) (pediatric) Category: Medical Plan: ENCOURAGED TO USE CPAP MORE THAN 4 HOURS PER NIGHT. ALSO ENCOURAGED TO KEEP ON LOSING WEIGHT . Coding Level of Care Code Est Pt Level 3 (62405) Diagnoses COPD (chronic obstructive pulmonary disease) J44.9 Restrictive lung disease secondary to obesity J98.4; E66.9 Allergic rhinitis J30.9 Nocturnal hypoxemia G47.34 DEANGELO (obstructive sleep apnea) G47.33
== END 2023-10-24 13:40 | disposition home or self-care (01) ==
PROVIDERS: PCP Family Medicine; Visit Provider Internal Medicine
DX: J44.9 Chronic obstructive pulmonary disease, unspecified (principal); J98.4 Other disorders of lung; E66.9 Obesity, unspecified; J30.9 Allergic rhinitis, unspecified; G47.34 Idiopathic sleep related nonobstructive alveolar hypoventilation; G47.33 Obstructive sleep apnea (adult) (pediatric)
CPT/HCPCS: 99213

== ENCOUNTER → 2023-10-24 12:45 | Outpatient (BNVA) | payer OTHER, SELFPAY | PROVIDERS: PCP Family Medicine; Visit Provider Internal Medicine | DX: J44.9 Chronic obstructive pulmonary disease, unspecified (principal); G47.33 Obstructive sleep apnea (adult) (pediatric); J98.4 Other disorders of lung; J30.9 Allergic rhinitis, unspecified; E66.9 Obesity, unspecified; Z68.28 Body mass index [BMI] 28.0-28.9, adult; G47.34 Idiopathic sleep related nonobstructive alveolar hypoventilation; Z87.891 Personal history of nicotine dependence | CPT/HCPCS: 99212 ==

== ENCOUNTER 2024-02-22 14:49 | Outpatient (AMB) | payer OTHER, SELFPAY ==
--- NOTE | 2024-02-22 14:55 | A.OFFVIS_ITS ---
Vital Signs 02/22/24 14:57 Height 5 ft Weight 179 lb 10.828 oz BMI 35.1 BP 108/60 Blood Pressure Location Lt brachial Position Sitting Pulse 96 Pulse Source Pulse Oximeter Pulse Oximetry (%) 94 Oxygen Delivery Method Room Air Intake Visit Reasons: COPD Intake Note: pt is here for follow up and states he has finished his keytruda, and states he feels his breathing is spotty, which makes his heart rate up. Psychologist Chief Required: No Allergies beta mehul Allergy (Unknown, Uncoded 02/22/24 15:18) Unknown Medication List - Last Reconciled 02/22/24 by Mireya Palomo MD acetaminophen 650 mg PO Q4H PRN albuterol sulfate 90 mcg/actuation 1 puff inhalation QID albuterol sulfate 2.5 mg inhalation Q4-6H PRN aspirin 81 mg PO DAILY azelastine 1 spray intranasal BEDTIME 30 days azelastine 1 spray intranasal BID 30 days MDD ALLERGIC RHINITIS / DEANGELO cetirizine (Zyrtec) 10 mg PO DAILY diltiazem HCl ER 300 mg PO DAILY fluticasone propion-salmeterol 500-50 mcg/dose (Wixela Inhub) 1 inh inhalation Q12H 90 days fluticasone propionate 50 mcg/actuation (Flonase Allergy Relief) 1 spray intranasal DAILY hydralazine 100 mg PO TID montelukast 10 mg PO BEDTIME omeprazole 20 mg PO DAILY sertraline 50 mg PO DAILY tamsulosin 0.4 mg PO DAILY tiotropium-olodaterol 2.5-2.5 mcg/actuation (Stiolto Respimat) 2 puffs inhalation DAILY 90 days Do you need a note to return to daycare/school/sports/work: No HPI HPI COPD: Details: MR. MICHAEL, 68 YEARS OLD GENTLEMAN, IS A CASE OF SEVERE COPD, CHRONIC ALLERGIC RHINITIS, OBSTRUCTIVE SLEEP APNEA, AND HE COMES AFTER 6 MONTHS FOR FOLLOW-UP. DURING THE PAST YEAR HE HAS BEEN TREATED FOR KIDNEY CANCER, HE HAS HAD LEFT NEPHRECTOMY, AND TREATED WITH KEYTRUDA INFUSIONS EVERY MONTH , COMPLETED RECENTLY. HE HAS LOST LOT OF WEIGHT, DUE TO LACK OF APPETITE. HE DOES HAVE HISTORY OF SLEEP APNEA, AND EVEN THOUGH HE HAS LOST WEIGHT HE STILL CONTINUES TO HAVE SYMPTOMS OF SLEEP APNEA AND USES CPAP AT NIGHT. FOR THIS HE IS BEING FOLLOWED BY THE [facility]. TODAY HE CLAIMS THAT HIS BREATHING IS SOMEWHAT WORSE AND HE HAS BOUTS OF INCREASED SHORTNESS OF BREATH . WITH MINIMAL EXERTION HE LOSES HIS BREATH . HER THE CARDIOLOGY OF HIS HE WAS NOTED TO HAVE O2 DESATURATION ON WALKING. HE HAS HAD NO RECENT RESPIRATORY INFECTIONS. HE CONTINUES TO USE WIXELA 500-50 B.I.D. AND STIOLTO RESPIMAT 2 INHALATIONS B.I.D. [facility] Medical History Respiratory failure with hypoxia Nocturnal hypoxemia COPD exacerbation Allergic rhinitis Asthma Restrictive lung disease secondary to obesity COPD (chronic obstructive pulmonary disease) DEANGELO (obstructive sleep apnea) Obesity Solitary lung nodule Sleep apnea Restrictive lung disease Esophageal reflux Diverticulosis HTN (hypertension) Allergic rhinitis Actinic keratosis Social History Patient Tobacco Use Status: Former Tobacco user Review of Systems Const All systems reviewed & are unremarkable except as noted in HPI and below Eyes Reports no additional complaints ENT Reports nasal congestion (Mild off and on) Card Denies chest pain, Denies irregular heart rhythm and Denies leg edema Resp Reports as per HPI GI Reports no additional complaints Reports no additional complaints Musc Reports no additional complaints Skin/Breast Reports system reviewed and no additional complaints, except as documented Neuro Reports no additional complaints Psych Reports no additional complaints Endo Reports no additional complaints Physical Exam Vital Signs: Last Vital Signs Pulse 96 02/22/24 14:57 BP 108/60 02/22/24 14:57 Pulse Ox 94 02/22/24 14:57 Oxygen Delivery Method Room Air 02/22/24 14:57 BMI result Body Mass Index 35.1 LOOKS QUITE THIN, AND SLIGHTLY SHORT OF BREATH DURING CONVERSATION Const Other: He has lost significant amount of weight since his last visit. General: comfortable, no acute distress (But somewhat short of breath during conversation), alert and awake Orientation/consciousness: patient oriented x3 HEENT Head: Yes normal to inspection General nose exam: No nasal polyps present, No nasal discharge present and Other nasal findings present (Mild nasal congestion) Face and sinus: Yes sinuses nontender Mouth: oropharynx normal Throat: Yes posterior oropharynx normal Eyes General: appearance normal, both eyes and all related structures Neck Neck: Yes normal visual inspection, Yes no lymphadenopathy, Yes trachea midline and Yes no JVD Thyroid: Thyroid normal Chest Chest palpation & inspection: normal inspection of the chest, normal palpation of entire chest wall and no tenderness Resp Other: Percussion note is resonant, breath sounds are distant with prolonged expiratory phase. LUNGS ARE CLEAR TODAY AND THERE ARE NO WHEEZES OR CREPITATIONS. Cardio Palpation: normal PMI Rate: regular rate and tachycardic Rhythm: regular rhythm Heart sounds: no gallops and no murmurs GI Inspection: Yes normal to inspection (THERE IS A SURGICAL SCAR WELL HEALED IN THE LEFT MID ABDOMEN) Palpation (GI): Soft to palpation, nontender, No hepatosplenomegaly present and no masses Auscultation: normal bowel sounds Back/Spine/Pelvis Thoracic/Lumbar Spine: thoracic and lumbar spine normal to inspection Skin General skin exam: rashes and/or lesions noted (Has the erythematous rash on both forearms, secondary to infusion therapy) Neuro General: patient oriented x3 and no focal motor deficits Cranial nerves: Yes CN's II-XII intact bilaterally Extrem General: Yes normal to inspection, Yes no clubbing, cyanosis or edema and Yes no calf tenderness Psych Appearance: grossly normal and well kempt Speech and movement: Normal speech and movement present Office Procedures 6 Minute Walk Time:: 15:30 SPO2 % at rest: 94 Pulse at rest: 81 SPO2 % during excercise: 92 Pulse during excercise: 105 SPO2 % after excercise: 93 Pulse after excercise: 97 Distance in yards walked: 240 Karl Score: 6 Performance Observations:: Avinash walked on room air for the entire walk, he maintained his SPO2 92-94%, no supplemental O2 needed. He c/o SOB, wheeze and chest tightness, aware. 53373 - 6 Minute Walk Spirometry Testing Spirometry Comments: Spirometry done in the office, Dr. Palomo has the results results scanned to his chart. 69723- Spirometry Results Reviewed Results Reviewed: SPIROMETRY, SHOES PATTERN OF VERY SEVERE OBSTRUCTIVE AIRWAY DISORDER. COMPARED TO HIS SPIROMETRY LAST YEAR THE NUMBERS ARE FURTHER DECREASED. 6 MINUTES WALK DID NOT SHOW ANY SIGNIFICANT DESATURATION ON WALKING. CHEST X-RAY IS ORDERED WITH NEED TO BE REVIEWED. Assessment & Plan Assessment & Plan (1) Allergic rhinitis: Comment: AT PRESENT WELL CONTROLLED CONTROLLED , Code(s): J30.9 - Allergic rhinitis, unspecified Category: Medical Plan: MONTELUKAST 10 MG DAILY. FLONASE 2 SPRAY EACH NOSTRIL DAILY AZELASTIN 1 SPRAY IN EACH NOSTRIL DAILY. CETIRIZINE 10 MG ONCE A DAY P.R.N.. (2) COPD (chronic obstructive pulmonary disease): Comment: HE HAS MODERATELY SEVERE OBSTRUCTIVE AIRWAY DISORDER, WELL CONTROLLED AT THIS TIME, LATELY IT SEEMS TO HAVE GOTTEN WORSE , HE IS HAVING INCREASED SHORTNESS OF BREATH WITH EXERTION. Code(s): J44.9 - Chronic obstructive pulmonary disease, unspecified Category: Medical Plan: SPIROMETRY 6 MINUTES WALK CHEST X-RAY IS ORDERED. TX : CONTINUE WIXELA 500-51 INHALATION B.I.D. STIOLTO RESPIMAT 2 PUFFS B.I.D.. ALBUTEROL HFA 2 PUFFS Q 6 HOURS P.R.N. (3) DEANGELO (obstructive sleep apnea): Comment: HE IS A WELL KNOWN CASE OF OBSTRUCTIVE SLEEP APNEA, WE DO NOT HAVE THE COMPLIANCE REPORT. HE CLAIMS THAT HE IS USING THE CPAP AT LEAST FOR 4-5 HRS EVERY NIGHT IN SPITE OF WEIGHT LOSS HE CONTINUES TO HAVE SYMPTOMS OF OBSTRUCTIVE SLEEP APNEA. HE IS BEING FOLLOWED UP FOR THAT AND MANAGED AT THE [facility] Code(s): G47.33 - Obstructive sleep apnea (adult) (pediatric) Category: Medical Plan: CONTINUE TO USE CPAP REGULARLY (4) Nocturnal hypoxemia: Comment: In his case NOCTURNAL HYPOXEMIA WAS part of his obstructive sleep apnea/hypoventilation syndrome. HE DID NOT HAVE TO USE 0 2, AND CONTINUES TO USE THE CPAP. Code(s): G47.34 - Idiopathic sleep related nonobstructive alveolar hypoventilation Category: Medical Plan: KEEP ON USING THE CPAP REGULARLY EVERY NIGHT Orders: Orders XR chest 2V Today G47.34 - Idiopathic sleep related nonobstructive alveolar hypoventilation, J44.9 - Chronic obstructive pulmonary disease, unspecified, J45.909 - Unspecified asthma, uncomplicated AMB Spirometry Testing Today J44.9 - Chronic obstructive pulmonary disease, unspecified AMB 6 minute walk Today J44.9 - Chronic obstructive pulmonary disease, unspecified Coding Level of Care Code Est Pt Level 4 (94305) Diagnoses Allergic rhinitis J30.9 COPD (chronic obstructive pulmonary disease) J44.9 DEANGELO (obstructive sleep apnea) G47.33 Nocturnal hypoxemia G47.34 CPT Codes Coding ([id number]) Spirometry - CPT: 26450- Spirometry ([id number])
[2024-02-22 14:57] VITALS: BP 108/60; PULSE 96; O2SAT 94; BMI 35.1
[2024-02-22 15:41] VITALS: PULSE 81; O2SAT 94
== END 2024-02-22 15:44 | disposition home or self-care (01) ==
PROVIDERS: PCP Family Medicine; Visit Provider Internal Medicine
DX: J30.9 Allergic rhinitis, unspecified (principal); J44.9 Chronic obstructive pulmonary disease, unspecified; G47.33 Obstructive sleep apnea (adult) (pediatric); G47.34 Idiopathic sleep related nonobstructive alveolar hypoventilation
CPT/HCPCS: 94010; 94618; 99214

== ENCOUNTER 2024-02-22 14:49 | Outpatient (REF) | payer OTHER, SELFPAY | END 2024-02-22 14:50 | disposition home or self-care (01) | LOC: HO.XRAY 14:49 | PROVIDERS: PCP Family Medicine; Visit Provider Internal Medicine | DX: J44.9 Chronic obstructive pulmonary disease, unspecified (principal); J30.9 Allergic rhinitis, unspecified; G47.34 Idiopathic sleep related nonobstructive alveolar hypoventilation; G47.33 Obstructive sleep apnea (adult) (pediatric); Z99.89 Dependence on other enabling machines and devices | CPT/HCPCS: 71046; 94010; 94618; 99212 ==

== ENCOUNTER 2024-03-21 13:58 | Outpatient (AMB) | payer OTHER, SELFPAY ==
[2024-03-21 14:06] VITALS: BP 110/54; PULSE 84; O2SAT 96; BMI 25.3
--- NOTE | 2024-03-21 14:06 | A.OFFVIS_ITS ---
Vital Signs 03/21/24 14:06 Height 5 ft 10 in Weight 176 lb 5.917 oz BMI 25.3 BP 110/54 L Blood Pressure Location Lt brachial Position Sitting Pulse 84 Pulse Source Pulse Oximeter Pulse Oximetry (%) 96 Oxygen Delivery Method Room Air Intake Visit Reasons: copd Intake Note: pt is here for follow up and states his short of breath is getting worse, Nematologist Required: No Allergies beta mehul Allergy (Unknown, Uncoded 03/21/24 14:33) Unknown Medication List - Last Reconciled 03/21/24 by Mireya Palomo MD acetaminophen 650 mg PO Q4H PRN albuterol sulfate 90 mcg/actuation 1 puff inhalation QID albuterol sulfate 2.5 mg inhalation Q4-6H PRN aspirin 81 mg PO DAILY azelastine 1 spray intranasal BEDTIME 30 days azelastine 1 spray intranasal BID 30 days MDD ALLERGIC RHINITIS / DEANGELO cetirizine (Zyrtec) 10 mg PO DAILY diltiazem HCl ER 300 mg PO DAILY fluticasone propion-salmeterol 500-50 mcg/dose (Wixela Inhub) 1 inh inhalation Q12H 90 days fluticasone propionate 50 mcg/actuation (Flonase Allergy Relief) 1 spray intranasal DAILY hydralazine 100 mg PO TID montelukast 10 mg PO BEDTIME omeprazole 20 mg PO DAILY sertraline 50 mg PO DAILY tamsulosin 0.4 mg PO DAILY tiotropium-olodaterol 2.5-2.5 mcg/actuation (Stiolto Respimat) 2 puffs inhalation DAILY 90 days Do you need a note to return to daycare/school/sports/work: No HPI HPI copd: Details: THIS 68 YEARS OLD , IS HERE FOR FOLLOW-UP FOR HIS COPD. HE HAS A LONGSTANDING HISTORY OF COPD WHICH IS GRADUALLY GETTING WORSE. MAIN COMPLAINT IS THAT HE GETS SHORT OF BREATH ON MINIMAL WALKING ESPECIALLY IF HE HAS TO WALK UP HILLS. HE THINKS THAT HIS SHORTNESS OF BREATH IS GETTING LITTLE BIT WORSE THAT BEFORE. HE DENIES ANY SIGNIFICANT DEGREE OF WHEEZING. HE DOES HAVE SOME COUGH USUALLY WHEN HE TAKES A SHOWER AND COMES OUT, HE WILL COUGH UP AND CLEAR HIS THROAT. USES HIS INHALERS REGULARLY. HE HAS HAD NO RECENT RESPIRATORY INFECTION. I WALKED WITH HIM FOR A FEW MINUTES IN THE HALLWAY AT A RELATIVELY FAST PACE, HIS O2 SAT REMAINED IN MID 90S WITHOUT ANY DECLINE. [facility] Medical History Respiratory failure with hypoxia Nocturnal hypoxemia COPD exacerbation Allergic rhinitis Asthma Restrictive lung disease secondary to obesity COPD (chronic obstructive pulmonary disease) DEANGELO (obstructive sleep apnea) Obesity Solitary lung nodule Sleep apnea Restrictive lung disease Esophageal reflux Diverticulosis HTN (hypertension) Allergic rhinitis Actinic keratosis Social History Patient Tobacco Use Status: Former Tobacco user Review of Systems Const All systems reviewed & are unremarkable except as noted in HPI and below Eyes Reports no additional complaints ENT Reports nasal congestion (Mild off and on) Card Denies chest pain, Denies irregular heart rhythm and Denies leg edema Resp Reports as per HPI GI Reports no additional complaints Reports no additional complaints Musc Reports no additional complaints Skin/Breast Reports system reviewed and no additional complaints, except as documented Neuro Reports no additional complaints Psych Reports no additional complaints Endo Reports no additional complaints Physical Exam Vital Signs: Last Vital Signs Pulse 84 03/21/24 14:06 BP 110/54 L 03/21/24 14:06 Pulse Ox 96 03/21/24 14:06 Oxygen Delivery Method Room Air 03/21/24 14:06 BMI result Body Mass Index 25.3 LOOKS QUITE THIN, AND SLIGHTLY SHORT OF BREATH DURING CONVERSATION Const Other: He has lost significant amount of weight since his last visit. General: comfortable, no acute distress (But somewhat short of breath during conversation), alert and awake Orientation/consciousness: patient oriented x3 HEENT Head: Yes normal to inspection General nose exam: No nasal polyps present, No nasal discharge present and Other nasal findings present (Mild nasal congestion) Face and sinus: Yes sinuses nontender Mouth: oropharynx normal Throat: Yes posterior oropharynx normal Eyes General: appearance normal, both eyes and all related structures Neck Neck: Yes normal visual inspection, Yes no lymphadenopathy, Yes trachea midline and Yes no JVD Thyroid: Thyroid normal Chest Chest palpation & inspection: normal inspection of the chest, normal palpation of entire chest wall and no tenderness Resp Other: Percussion note is resonant, breath sounds are distant with prolonged expiratory phase. LUNGS ARE CLEAR TODAY AND THERE ARE NO WHEEZES OR CREPITATIONS. Cardio Palpation: normal PMI Rate: regular rate and tachycardic Rhythm: regular rhythm Heart sounds: no gallops and no murmurs GI Inspection: Yes normal to inspection (THERE IS A SURGICAL SCAR WELL HEALED IN THE LEFT MID ABDOMEN) Palpation (GI): Soft to palpation, nontender, No hepatosplenomegaly present and no masses Auscultation: normal bowel sounds Back/Spine/Pelvis Thoracic/Lumbar Spine: thoracic and lumbar spine normal to inspection Skin General skin exam: rashes and/or lesions noted (Has the erythematous rash on both forearms, secondary to infusion therapy) Neuro General: patient oriented x3 and no focal motor deficits Cranial nerves: Yes CN's II-XII intact bilaterally Extrem General: Yes normal to inspection, Yes no clubbing, cyanosis or edema and Yes no calf tenderness Psych Appearance: grossly normal and well kempt Speech and movement: Normal speech and movement present Assessment & Plan Assessment & Plan (1) COPD (chronic obstructive pulmonary disease): Comment: HE HAS MODERATELY SEVERE OBSTRUCTIVE AIRWAY DISORDER, WELL CONTROLLED AT THIS TIME, HE IS HAVING INCREASED SHORTNESS OF BREATH WITH EXERTION. EXERCISE INDUCED HYPOXEMIA WAS RULED OUT. Code(s): J44.9 - Chronic obstructive pulmonary disease, unspecified Category: Medical Plan: CONTINUE TO USE WIXELA 500-51 INHALATION B.I.D.. STIOLTO 2 INHALATIONS DAILY ALBUTEROL HFA 1 OR 2 PUFFS Q 6 HOURS P.R.N./ ALSO MAY USE ALBUTEROL SOLUTION IN THE NEBULIZER Q 4-6 HOURS P.R.N. WHEN AT HOME (2) DEANGELO (obstructive sleep apnea): Comment: HE IS A WELL KNOWN CASE OF OBSTRUCTIVE SLEEP APNEA, WE DO NOT HAVE THE COMPLIANCE REPORT. HE CLAIMS THAT HE IS USING THE CPAP AT LEAST FOR 4-5 HRS EVERY NIGHT IN SPITE OF WEIGHT LOSS HE CONTINUES TO HAVE SYMPTOMS OF OBSTRUCTIVE SLEEP APNEA. HE IS BEING FOLLOWED UP FOR THAT AND MANAGED AT THE [facility] Code(s): G47.33 - Obstructive sleep apnea (adult) (pediatric) Category: Medical Plan: ADVISED TO CONTINUE USING CPAP EVERY NIGHT (3) Allergic rhinitis: Comment: AT PRESENT WELL CONTROLLED CONTROLLED , Code(s): J30.9 - Allergic rhinitis, unspecified Category: Medical Plan: CONTINUE TO USE MONTELUKAST 10 MG DAILY. CONTINUE FLONASE-52 SPRAY IN EACH NOSTRIL DAILY CETIRIZINE 10 MG ONCE A DAY P.R.N. Medications: Refilled tiotropium-olodaterol 2.5-2.5 mcg/actuation (Stiolto Respimat) 2 puffs inhalation DAILY 90 days 4 grams 3RF COPD Coding Level of Care Code Est Pt Level 3 (90167) Diagnoses COPD (chronic obstructive pulmonary disease) J44.9 DEANGELO (obstructive sleep apnea) G47.33 Allergic rhinitis J30.9
== END 2024-03-21 14:31 | disposition home or self-care (01) ==
PROVIDERS: PCP Family Medicine; Visit Provider Internal Medicine
DX: J44.9 Chronic obstructive pulmonary disease, unspecified (principal); G47.33 Obstructive sleep apnea (adult) (pediatric); J30.9 Allergic rhinitis, unspecified
CPT/HCPCS: 99213

== ENCOUNTER → 2024-03-21 13:58 | Outpatient (BNVA) | payer OTHER, SELFPAY | PROVIDERS: PCP Family Medicine; Visit Provider Internal Medicine | DX: J44.9 Chronic obstructive pulmonary disease, unspecified (principal); J30.9 Allergic rhinitis, unspecified; G47.33 Obstructive sleep apnea (adult) (pediatric) | CPT/HCPCS: 99212 ==

== ENCOUNTER 2024-05-16 10:05 | Outpatient (REF) | payer OTHER, SELFPAY ==
--- NOTE | ~2024-05-16 | CT_ITS ---
CLINICAL HISTORY: J44.1 - Chronic obstructive pulmonary disease with (acute) exacerbation CT chest without contrast Comparison: None Findings: The heart is normal size. Is aortic and coronary arterial calcification. Maximum aortic transverse diameter is 4.1 x 3.6 cm in the ascending portion. The visualized thyroid and mediastinum are otherwise unremarkable. There are changes of pulmonary bullous disease with scarring or subsegmental atelectasis. The visualized upper abdomen is unremarkable. No acute fractures. IMPRESSION: 1. Pulmonary bullous disease with scarring or subsegmental atelectasis. This document has been electronically signed by: Kishore Weiss MD on 05/17/2024 08:25:59
== END 2024-05-16 10:06 | disposition home or self-care (01) ==
LOC: HO.CT 10:05
PROVIDERS: PCP Family Medicine; Visit Provider Internal Medicine
DX: R91.1 Solitary pulmonary nodule (principal); G47.33 Obstructive sleep apnea (adult) (pediatric); J44.1 Chronic obstructive pulmonary disease with (acute) exacerbation
CPT/HCPCS: 71250

== ENCOUNTER → 2024-05-16 10:07 | Outpatient (BNV) | payer OTHER, SELFPAY | PROVIDERS: PCP Family Medicine; Visit Provider Specialist | DX: J43.9 Emphysema, unspecified (principal) | CPT/HCPCS: 71250 ==

== ENCOUNTER 2024-09-12 13:43 | Outpatient (AMB) | payer OTHER, SELFPAY ==
[2024-09-12 14:02] VITALS: BP 114/54; PULSE 83; O2SAT 95; BMI 27.2
--- NOTE | 2024-09-12 14:02 | A.OFFVIS_ITS ---
Vital Signs 09/12/24 14:02 Height 5 ft 10 in Weight 189 lb 9.561 oz BMI 27.2 BP 114/54 L Blood Pressure Location Lt brachial Position Sitting Pulse 83 Pulse Source Pulse Oximeter Pulse Oximetry (%) 95 Oxygen Delivery Method Room Air Intake Visit Reasons: COPD Intake Note: pt is here for follow up and states he is feeling short of breath with pressure in the chest with exertion and tingling and buzzing in both shoulders. Instructional Support Technician Required: No Allergies beta mehul Allergy (Unknown, Uncoded 09/12/24 16:28) Unknown Medication List - Last Reconciled 09/12/24 by Mireya Palomo MD acetaminophen 650 mg PO Q4H PRN albuterol sulfate 90 mcg/actuation 1 puff inhalation QID albuterol sulfate 2.5 mg inhalation Q4-6H PRN aspirin 81 mg PO DAILY diltiazem HCl ER 300 mg PO DAILY fluticasone propion-salmeterol 500-50 mcg/dose (Wixela Inhub) 1 inh inhalation Q12H 90 days fluticasone propionate 50 mcg/actuation (Flonase Allergy Relief) 1 spray intranasal DAILY hydralazine 100 mg PO TID ipratropium bromide 2 sprays intranasal TID loratadine (Allergy Relief (loratadine)) 10 mg PO DAILY montelukast 10 mg PO BEDTIME omeprazole 20 mg PO DAILY sertraline 50 mg PO DAILY tamsulosin 0.4 mg PO DAILY tiotropium-olodaterol 2.5-2.5 mcg/actuation (Stiolto Respimat) 2 puffs inhalation DAILY 90 days Do you need a note to return to daycare/school/sports/work: No HPI HPI COPD: Details: 68 years old , is here for 6 months follow-up for his COPD. He is doing okay but his complaint is that he gets very short of breath on minimal walking. He can walk only 2-3 minutes before he gets short. Of breath than he has to slow down However he denies any cough expectoration or wheezing. He also denies chest pain . He is using his medications regularly including Wixela 500-50 in 1 inhalation b.i.d. and Stiolto Respimat 2 puffs daily. Complains of frequent bouts of nasal congestion especially when he walks around outdoors. He is using Flonase as well as montelukast daily. Recently at [facility] he has been prescribed ipratropium nasal solution to use p.r.n.. [facility] Medical History (Updated 09/12/24 @ 16:39 by Mireya Palomo MD) Dyspnea on minimal exertion Pulmonary nodule Respiratory failure with hypoxia Nocturnal hypoxemia COPD exacerbation Allergic rhinitis Asthma Restrictive lung disease secondary to obesity COPD (chronic obstructive pulmonary disease) DEANGELO (obstructive sleep apnea) Obesity Solitary lung nodule Sleep apnea Restrictive lung disease Esophageal reflux Diverticulosis HTN (hypertension) Allergic rhinitis Actinic keratosis Social History Patient Tobacco Use Status: Former Tobacco user Review of Systems Const All systems reviewed & are unremarkable except as noted in HPI and below Eyes Reports no additional complaints ENT Reports nasal congestion (Mild off and on) Card Denies chest pain, Denies irregular heart rhythm and Denies leg edema Resp Reports as per HPI GI Reports no additional complaints Reports no additional complaints Musc Reports no additional complaints Skin/Breast Reports system reviewed and no additional complaints, except as documented Neuro Reports no additional complaints Psych Reports no additional complaints Endo Reports no additional complaints Physical Exam Vital Signs: Last Vital Signs Pulse 83 09/12/24 14:02 BP 114/54 L 09/12/24 14:02 Pulse Ox 95 09/12/24 14:02 Oxygen Delivery Method Room Air 09/12/24 14:02 BMI result Body Mass Index 27.2 LOOKS QUITE THIN, AND SLIGHTLY SHORT OF BREATH DURING CONVERSATION Const Other: He has lost significant amount of weight since his last visit. General: comfortable, no acute distress (But somewhat short of breath during conversation), alert and awake Orientation/consciousness: patient oriented x3 HEENT Head: Yes normal to inspection General nose exam: No nasal polyps present, No nasal discharge present and Other nasal findings present (Mild nasal congestion) Face and sinus: Yes sinuses nontender Mouth: oropharynx normal Throat: Yes posterior oropharynx normal Eyes General: appearance normal, both eyes and all related structures Neck Neck: Yes normal visual inspection, Yes no lymphadenopathy, Yes trachea midline and Yes no JVD Thyroid: Thyroid normal Chest Chest palpation & inspection: normal inspection of the chest, normal palpation of entire chest wall and no tenderness Resp Other: Percussion note is resonant, breath sounds are distant with prolonged expiratory phase. LUNGS ARE CLEAR TODAY AND THERE ARE NO WHEEZES OR CREPITATIONS. Cardio Palpation: normal PMI Rate: regular rate and tachycardic Rhythm: regular rhythm Heart sounds: no gallops and no murmurs GI Inspection: Yes normal to inspection (THERE IS A SURGICAL SCAR WELL HEALED IN THE LEFT MID ABDOMEN) Palpation (GI): Soft to palpation, nontender, No hepatosplenomegaly present and no masses Auscultation: normal bowel sounds Back/Spine/Pelvis Thoracic/Lumbar Spine: thoracic and lumbar spine normal to inspection Skin General skin exam: rashes and/or lesions noted (Has the erythematous rash on both forearms, secondary to infusion therapy) Neuro General: patient oriented x3 and no focal motor deficits Cranial nerves: Yes CN's II-XII intact bilaterally Extrem General: Yes normal to inspection, Yes no clubbing, cyanosis or edema and Yes no calf tenderness Psych Appearance: grossly normal and well kempt Speech and movement: Normal speech and movement present Office Procedures 6 Minute Walk Time:: 14:35 SPO2 % at rest: 96 Pulse at rest: 77 SPO2 % during excercise: 93 Pulse during excercise: 115 SPO2 % after excercise: 93 Pulse after excercise: 91 Distance in yards walked: 180 Karl Score: 7 Performance Observations:: Avinash walked on level ground without assistance, he walked on room air and maintained his SPO2 93-95% for the entire walk, no supplemental O2 needed. [id number] - 6 Minute Walk Results Reviewed Results Reviewed: 6 minutes walk test, . Reviewed He was noted to be very short of breath after walking 2-3 minutes. But he did not show much desaturation. O2 sat stayed above 90%. Assessment & Plan Assessment & Plan (1) COPD (chronic obstructive pulmonary disease): Comment: HE HAS MODERATELY SEVERE OBSTRUCTIVE AIRWAY DISORDER, WELL CONTROLLED AT THIS TIME, HE IS HAVING INCREASED SHORTNESS OF BREATH WITH EXERTION. EXERCISE INDUCED HYPOXEMIA WAS RULED OUT. IS SHORTNESS OF BREATH IS NOT DUE TO EXERCISE INDUCED HYPOXEMIA, IT IS SECONDARY TO ADVANCED CHRONIC OBSTRUCTIVE PULMONARY DISEASE, CONFIRMED WITH PFT AND SUBSEQUENT YEARLY SPIROMETRY. Code(s): J44.9 - Chronic obstructive pulmonary disease, unspecified Category: Medical Plan: CONTINUE TO USE WIXELA 500-51 INHALATION B.I.D. STIOLTO RESPIMAT 2 PUFFS DAILY. VENTOLIN HFA 2 PUFFS Q 6 HOURS P.R.N. (2) Nocturnal hypoxemia: Comment: In his case NOCTURNAL HYPOXEMIA WAS part of his obstructive sleep apnea/hypove ntilation syndrome. IT WAS CORRECTED BY THE USE OF CPAP. HE DID NOT HAVE TO USE 0 2, AND CONTINUES TO USE THE CPAP. Code(s): G47.34 - Idiopathic sleep related nonobstructive alveolar hypoventilation Category: Medical Plan: CONTINUE TO USE THE CPAP EVERY NIGHT REGULARLY. PATIENT IS BEING FOLLOWED AT THE [place] [facility] FOR HIS OBSTRUCTIVE SLEEP APNEA (3) DEANGELO (obstructive sleep apnea): Comment: HE IS A WELL KNOWN CASE OF OBSTRUCTIVE SLEEP APNEA, WE DO NOT HAVE THE COMPLIANCE REPORT. HE CLAIMS THAT HE IS USING THE CPAP AT LEAST FOR 4-5 HRS EVERY NIGHT IN SPITE OF WEIGHT LOSS HE CONTINUES TO HAVE SYMPTOMS OF OBSTRUCTIVE SLEEP APNEA. HE IS BEING FOLLOWED UP FOR THAT AND MANAGED AT THE [facility] Code(s): G47.33 - Obstructive sleep apnea (adult) (pediatric) Category: Medical Plan: ABOVE (4) Dyspnea on minimal exertion: Comment: IN HIS CASE DYSPNEA ON MINIMAL EXERTION IS SECONDARY TO ADVANCED CHRONIC OBSTRUCTIVE PULMONARY DISEASE, AND DECONDITIONING. ON 6 MINUTES WALK HE DOES NOT QUALIFY FOR OXYGEN USE. Code(s): R06.09 - Other forms of dyspnea Category: Medical Plan: DISCUSSED WITH HIM AND I TOLD HIM THAT THE NEXT STEP TO IMPROVE HIS BREATHING STATUS WOULD BE PULMONARY REHAB PROGRAM. HE TOLD ME THAT HE HAS BEEN IN THE REHAB PROGRAM ABOUT 4 YEARS AGO, SO HE IS VERY AGREEABLE TO. ENTER INTO THE PROGRAM AGAIN THUS HE IS REFERRED FOR PULMONARY REHAB PROGRAM OUTPATIENT. Orders: Orders AMB 6 minute walk Today J44.9 - Chronic obstructive pulmonary disease, unspecified Coding Level of Care Code Est Pt Level 4 (22927) Diagnoses COPD (chronic obstructive pulmonary disease) J44.9 Nocturnal hypoxemia G47.34 DEANGELO (obstructive sleep apnea) G47.33 Dyspnea on minimal exertion R06.09 CPT Codes Coding ([id number])
--- OUTSIDE RECORDS SUMMARY | 2024-09-12 14:22 | XMS_ITS | Encounter Summary ---
Author Name [facility] Organization [facility] [facility] [place] Address [address] [place] [id number] Care Team Providers Care Paid Search Analyst Name Role Phone DESTINY HAMILTON Primary Care Provider Unavailabl e Insurance Providers: [...] DENTAL DENTAL INSURANCE [facility] ILENE CULVER Suze May 01, 2019 [id number] [place] PATIENT HEALTH [place] [employer] [facility]PP[facility] SUPPL EMENT Jan 04, 2020 [id number] [place] PATIENT [facility]ALTH [place] [facility] Nov 30, 2019 [id number] [facility] CE ORGANIZ COS EARLY RETIR EE May 01, 2015 [id number] [facility] CE ORGANIZAT ION Oct 30, 2012 [id number] MICHAEL,TH [place] PATIENT MEDICARE (WNR) MEDICARE (M) PART A Nov 30, 2019 PART A [id number] JENNIFER MICHAEL [place] PATIENT MEDICARE (WNR) MEDICARE (M) PART B Nov 30, 2019 PART B [id number] JENNIFER MICHAEL [place] PATIENT MEDICARE (WNR) MEDICARE (M) PART A Nov 30, 2019 PART A [id number] [phone] [id number] JENNIFER MICHAEL [place] PATIENT MEDICARE (WNR) MEDICARE (M) PART B Nov 30, 2019 PART B [id number] JENNIFER MICHAEL [facility] PATIENT Selected Encounter This section includes the information on record at [place] for the Encounter. Date/Time Encounter Type Encounter Description Reason Pro vider Source Aug 27, 2024 03:53 PM Outpatient Encounter COMMUNITY CARE CONSULT IHE Encounter Template Text not used by [place] Plan of Treatment: Future Appointments (+ 6 months) and Future Tests (+/- 45 days) The Plan of Treatment section includes future care activities for the patient from all [place] [facility] This section includes future appointments and future orders which are active, pending or scheduled. Future Appointments This section includes appointments that were scheduled to occur 6 months from the date of the Encounter, up to a maximum of 20 appointments. The data comes from all [place] treatment facilities. Appointment Date/Time Appointment Type Appointme nt Facility Name September 02, 2024 02:00 PM [facility] - [facility] Oct 22, 2024 01:30 PM [facility] - [facility] Nov 26, 2024 09:50 AM [facility] - [facility] Dec 24, 2024 11:00 AM [facility]ULATORY [facility] Active, Pending, and Scheduled Orders This section includes a listing of several types of active, pending, and scheduled orders, including clinic medications orders, diagnostic test orders, procedure orders and consult orders; where the start date of the order is 45 days before the date of the Encounter or 45 days after the date of theEncounter. The data comes from all [place] treatment facilities. Test Date/Time Test Type Test Details Facility Name Jul 16, 2024 10:54 AM Consult Order COMMUNITY CARE-ONCOLOGY Cons Cigar Making Machine Supervisor's Choice [place] [facility] [place] [facility] Aug 27, 2024 04:28 PM Consult Order COMMUNITY CARE-PULMONARY Cons Cigar Making Machine Supervisor's Choice [place] [facility] [place] [facility] Encounter Notes: All associated encounter notes This [...] documentation has been sent for scanning to [facility] Consult: COMMUNITY CARE-pulmonary Consult No: sdf Date sent to scanning: sdf A Request for Service ([facility]) form [id number] has been received which includes the following: Care Requested:continuity of care for COPD ICD-10 Dx code: J44.9 Date [facility] received request: Jul Date service required: August [facility] [address] [place] [address] [place] [address] appt on 09/12/2024 Alert to PACT-new CC pulmonary consult needed if in agreement. Thank you /hannah KIM [facility] RN Signed: 08/27/2024 15:55 Receipt Acknowledged By: 08/27/2024 16:07 /wilmer/ JOHN DIAZ LPN PACT 10 for KAVON GARCIA 08/27/2024 16:06 /hannah DIAZ LPN PACT 10 BREE KIM [place] [facility] [place] [facility]
--- OUTSIDE RECORDS SUMMARY | 2024-09-12 14:22 | XMS_ITS ---
Author Organization [facility] Address [address] [place] [address] Care Team Providers Care Drugless Physician Name Role Phone Vandana Lamb MD Primary Care Provider [phone] Active Problems Problem Noted Date Diagnosed Date Renal cell cancer, left 02/08/2023 Current Oncology Plans No current plan information found. Past Plans ONCOLOGY TREATMENT Plan Name Start Date Discontinue Date Treatment Medications Discontinue Reason Plan Provider Cycles [facility] BCN OP PEMBROLIZUMAB (200 MG) 023 02/16/2024 albuterol (PROVENTIL)diphenh ydrAMINE (BENADRYL)EPINEPHr ineEPINEPHrine (Anaphylaxis) (ADRENALIN)famotid ine (PF) (PEPCID)hydrocorti sone (SOLU-CORTEF) IVHydrocortisone Sod Suc (PF) (Solu-CORTEF)meper idine (DEMEROL) 25 MG/MLpembrolizumab (KEYTRUDA) infusionSaline Flush 0.9 %sodium chloride (NS) 0.9 %sodium chloride 0.9% bolus (NS) Therapy Complete Mark Verma MD 17 of 17 cycles started Radiation Treatments * No radiation treatments are documented for this patient in [facility]. Treatments may have been administered in another system.
--- OUTSIDE RECORDS SUMMARY | 2024-09-12 14:23 | XMS_ITS | Encounter Summary ---
Author Organization [facility] Address [address] [place] [address] Care Team Providers Care Construction Carpenter Name Role Phone Vandana Lamb MD Primary Care Provider [phone] Encounter Details Date Type Department Care Team [...] Care Team (Late st Contact Info) Description 10/22/2024 1:30 PM EDT Office Visit [facility] Hematology Oncology [address] [place] [address] Mark Verma MD [address] [place] [phone] 11/26/2024 9:50 AM EDT Office Visit [facility] [phone] [facility] [address] [place] [address] Greyson Kerns MD [address] [facility] [address] [place] [address] documented as of this encounter Visit Diagnoses Not on filedocumented in this encounter Care Teams Construction Carpenter Relationship Specialty Start Date End Date Vandana Lamb MD [address] [place] [address] PCP - General 02/01/23 documented as of this encounter
--- OUTSIDE RECORDS SUMMARY | 2024-09-12 14:23 | XMS_ITS | Clinical Summary ---
Author Organization [facility] Address [address] [place] [address] Phone Care Team Providers Care Social Media Director Name Role Phone Vandana Lamb MD Primary Care Provider Allergies Active Allergy Reactions Criticality Noted Date Comments Beta-Blockers (Beta-Adrenergic Blocking Agts) High 01/20/2023 Other Reaction(s): SEVERE BRONCHOCONSTRICTION AND HYPOXIA Medications dilTIAZem CD (CARDIZEM CD) 300 mg 24 hr capsule Take 1 capsule (300 mg total) by mouth. 3 Active cetirizine (ZyrTEC) 5 mg tablet Take 1 tablet (5 mg total) by mouth 1 (one) time each day. Active hydrALAZINE (APRESOLINE) 100 mg tablet Take 1 tablet (100 mg total) by mouth. 3 Active montelukast (SINGULAIR) 10 mg tablet Take 1 tablet (10 mg total) by mouth. 0 Active omeprazole (PriLOSEC) [address] capsule Take 1 capsule (20 mg total) by mouth 1 (one) time each day. Active ondansetron (ZOFRAN) 8 mg tablet Take by mouth. 4 Active sertraline (ZOLOFT) 100 mg tablet Take 0.5 tablets (50 mg total) by mouth. 4 Active tamsulosin (FLOMAX) 0.4 mg 24 hr capsule Take by mouth. 3 Active fluticasone-salm eterol (ADVAIR DISKUS) 250-50 mcg/dose diskus inhaler Inhale 1 puff by mouth 2 (two) times a day. Active hydrOXYzine pamoate (VISTARIL) 25 mg capsule Take 1 capsule (25 mg total) by mouth. 3 Active ipratropium-albu teroL (DUONEB) 0.5-2.5 mg/3 mL nebulizer solution Inhale 3 mL 4 times a day by nebulization route as directed for 1 day. 3 Active tiotropium-oloda teroL (Stiolto Respimat) 2.5-2.5 mcg/actuation mist inhaler Inhale by mouth. Active fluticasone propionate (FLONASE) 50 mcg/actuation nasal spray Administer into affected nostril(s). 4 Active aspirin 81 mg EC tablet Take 1 tablet (81 mg total) by mouth. 3 Active betamethasone dipropionate (DIPROSONE) 0.05 % cream Apply topically 2 (two) times a day. 45 g 2 4 Active Active Problems Problem Noted Date Diagnosed Date Renal cell cancer, left (CMS/HCC V24, CMS/HCC V2 8) 02/08/2023 Encounters Date Type Department Care Team Description 08/13/2024 3:30 PM EDT Ancillary Procedure [facility] Cardiology [facility] [address] [facility] [address] [place] [address] 08/02/2024 4:40 PM EDT Ancillary Procedure [facility] Cardiology [facility] [address] [phone] 07/18/2024 2:15 PM EDT Office Visit [facility] Hematology Oncology [address] [place] [phone] Mark Verma MD Renal cell cancer, left (CMS/HCC V24, CMS/HCC V28) (Primary Dx) 07/16/2024 3:20 PM EDT Ancillary Procedure [facility] Cardiology [facility] [address] [phone] from Last 3 Months Immunizations Name Administration Dates Next Due Pfizer (ages 12 & older) Bivalent, COVID-19 03/31 Pfizer SARS-CoV-2 COVID-19, mRNA, LNP-S, preservative free 02/19/2021,07/30/2020,07/09/2020 Surgical History Surgery Date Site/Laterality Comments COLONOSCOPY W/ BIOPSIES 03/09/2007 PROCEDURE: SD COLONOSCOPY W/BIOPSY SINGLE/MULTIPLE; COMMENT: small cecal polyp: Tubular adenoma Medical History Medical History Date Comments Diverticulosis of colon (wit hout mention of hemorrhage) 03/09/2007 DX:Diverticulosis of colon ( without mention of hemorrhage); COMMENT: Incidental finding at colonoscopy 03/09/2007. Benign neoplasm of colon 03/20/2007 DX:James gn neoplasm of colon; COMMENT: Small tubular adenoma in the cecum at colonoscopy 03/09/07. Next colonoscopy indicated 2011. Asthma 12/17/2018 DX:Asthma COPD (chronic obstructive pu [place]monary disease[place] [place] [facility] [place] 12/17/2018 DX:COPD (chronic o bstructive pulmonary disease) ([facility]) History of substance abuse ( [facility] [place] [facility] [place] 12/17/2018 DX:History of substance abus e ([facility]); COMMENT: alcoholism Actinic keratosis 12/17/2018 DX:Actinic ker atosis Allergic rhinitis 12/17/2018 DX:Allergic rh initis Hypertension 12/17/2018 DX:Hypertension DEANGELO (obstructive sleep apnea) 12/17/2018 DX :DEANGELO (obstructive sleep apnea) Lung nodule, solitary 12/17/2018 DX:Lung no dule, solitary Major depressive disorder, r ecurrent, moderate ([facility] V24, [facility] V28) 12/17/2018 DX:Major depressiv e disorder, recurrent, moderate ([facility]) Erectile dysfunction 12/17/2018 DX:Erectile dysfunction GERD (gastroesophageal reflux disease) 12/17/2018 DX:GERD (gastroesophageal reflux disease) Prediabetes 12/17/2018 DX:Prediabetes Social History Tobacco Use Types Packs/Day Years Used Date Smoking Tobacco: Former Tobacco Cessation:Counseling Given: Not Answered Alcohol Use Standard Drinks/Week Comments Not Currently 0 (1 standard drink = 0.6 oz pur e alcohol) Sex and Gender Information Value Date Recorded Sex Assigned at Not on file Legal Sex Male 1:23 AM EST Gender Identity Not on file Sexual Orientation Not on file Obstetrics History Last Filed Vital Signs Vital Sign Reading Time Taken Comments Blood Pressure 147/70 07/18/2024 2:09 PM EDT Pulse 87 07/18/2024 2:09 PM EDT Temperature 36.7 ??C (98 ??F) 07/18/2024 2:09 PM EDT Respiratory Rate - - Oxygen Saturation 96% 07/18/2024 2:09 PM EDT Inhaled Oxygen Concentration - - Weight 80.3 kg (177 lb) 07/18/2024 2:09 PM EDT Height 175.3 cm (5' 9 ) 02/15/2024 2:32 PM EDT Body Mass Index 26.14 02/15/2024 2:32 PM EDT Plan of Treatment Upcoming Encounters Date Type Department Care Team (Late st Contact Info) Description 10/22/2024 1:30 PM EDT Office Visit [facility] Hematology Oncology [address] [place] [address] Mark Verma MD [address] [place] [address] 11/26/2024 9:50 AM EDT Office Visit [facility] [address] [phone] Greyson Kerns MD [address] [address] Health Maintenance Due Date Last Done Comments RSV Immunization Adult Patients (1 - Risk 60-74 years 1-dose series) 2014 Zoster Vaccines (2 of 2) 06/18/2020 04/23/2020, 0705/2012 Abdominal Aortic Aneurysm (AAA) Screen 05/30/2023 Cholesterol Screening (Lipid Panel) 05/30/2023 Depression Screening 05/30/2023 Falls Risk Assessment 05/30/2023 Hepatitis C Screening 05/30/2023 Medicare Annual Wellness Visit 05/30/2023 Social Influencers of Health Screening 05/30/2023 COVID-19 Vaccine ( season) 2023 04/16/2022, 02/19/2021, 07/30/2020, Additional history exists Hypertension/CHF/CAD Annual BMP Blood Test 03/11/2025 03/11/2024 Colorectal Cancer Screening: Colonoscopy 09/12/2028 09/12/2018 DTaP,Tdap,and Td Vaccines (5 - Td or Tdap) 05/10/2031 05/10/2021, 03/01/2010, 03/01/2010, Additional history exists Pneumococcal Vaccine: 50+ Years Completed 06/09/2022, 02/19/2021, 03/07/2011 Hepatitis B Vaccines Completed 11/16/2022, 07/07/2022, 06/09/2022 Influenza Vaccine Completed 01/30/2024, , 01/13/2021, Additional history exists HIB Vaccines Aged Out No longer eligi ble based on patient's age to complete this topic HPV Vaccines Aged Out No longer eligi ble based on patient's age to complete this topic Hepatitis A Vaccines Aged Out No long er eligible based on patient's age to complete this topic IPV Vaccines Aged Out No longer eligi ble based on patient's age to complete this topic MMR Vaccines Aged Out No longer eligi ble based on patient's age to complete this topic Meningococcal ACWY Vaccine Aged Out N o longer eligible based on patient's age to complete this topic Meningococcal B Vaccine Aged Out No l onger eligible based on patient's age to complete this topic RSV Immunization Patients Under 20 months Aged Out No longer eligible based on patient's age to complete this topic Varicella Vaccines Aged Out No longer eligible based on patient's age to complete this topic Medical Devices Implanted Type Area Export Agent Device Identifier Shelf Expiration Date Model / Serial / Lot Bsci-Crm [id number] Implanted:11/2022 (Quantity not on file) Cardiac Loop Recorder [employer] MGMT [id number] / [id number] / Procedures Procedure Name Priority Date/Time Associated Diagnosis Comments CARDIAC DEVICE CHECK- REMOTE- MURJ Routine 08/13/2024 3:29 PM EDT CARDIAC DEVICE CHECK- REMOTE- MURJ Routine 08/02/2024 4:38 PM EDT CARDIAC DEVICE CHECK- REMOTE- MURJ Routine 07/16/2024 3:16 PM EDT COMPREHENSIVE METABOLIC PANEL Routine 03/11/2024 12:00 PM EST Malignant neoplasm of left kidney, except renal pelvis (CMS/HCC V24, CMS/HCC V28) Drug therapy from Last 3 Months or Most Recently Relevant to Health Maintenance Results * Cardiac device check - Remote- MURJ (08/13/2024 3:29 PM EDT) Only the most recent of3 resultswithin the time period is included. Date Time Interrogation Session [id number] CV DEVICE CHECK Type Interrogation Session Remote Device Initiated CV DEVICE CHECK Implantable Pulse Generator Export Agent BSX CV DEVICE CHECK Implantable Pulse Generator Type ILR CV DEVICE CHECK Implantable Pulse Generator Model M301 CV DEVICE CHECK Implantable Pulse Generator Serial Number [id number] CV DEVICE CHECK Implantable Pulse Generator Implant Date 20230106 CV DEVICE CHECK Battery Status Beginning of Service CV DEVICE CHECK Atrial Tachy Statistic AT/AF [place] Percent 1.00 CV DEVICE CHECK Date of Service 2024-08-21 CV DEVICE CHECK Anatomical Region Laterality Modality Device Interroga tion 08/12/2024 5:59 AM EDT Impressions 08/13/2024 10:44 AM EDT Normal Remote: With Events * Events or Alerts: 2 AF events; 1 FALSE, 1 AF w some RVR noted (27 beats) * This is a normal remote diagnostic device check * Battery data was reviewed * Battery status: [place], [place] * Presenting rhythm: SR 50's * Heart Rate Histograms reviewed Narrative Procedure Note Aureliano Fry MD - 08/13/2024 IMPRESSION: Normal Remote: With Events * Events or Alerts: 2 AF events; 1 FALSE, 1 AF w some RVR noted (27beats) * This is a normal remote diagnostic device check * Battery data was reviewed * Battery status: [place], [place] * Presenting rhythm: SR 50's * Heart Rate Histograms reviewed us Aureliano Fry MD CV IMPLANTABLE CARDIAC DEVICE PROCEDURES Final Result * (ABNORMAL) Comprehensive metabolic panel (03/11/2024 12:00 PM EST) Sodium 140 133 - 145 mmol/L LAB CHEMISTRY METHOD 03/11/2024 1:36 PM [facility] Potassium 4.7 3.5 - 5.5 mmol/L LAB CHEMISTRY METHOD 03/11/2024 1:36 PM [facility] Chloride 107 96 - 110 mmol/L LAB CHEMISTRY METHOD 03/11/2024 1:36 PM [facility] CO2 28 21 - 32 mmol/L LAB CHEMISTRY METHOD 03/11/2024 1:36 PM [facility] Anion Gap 5 3 - 11 LAB CHEMISTRY METHOD 03/11/2024 1:36 PM [facility] Glucose 99 70 - 100 mg/dL LAB CHEMISTRY METHOD 03/11/2024 1:36 PM [facility] BUN 19 5 - 25 mg/dL LAB CHEMISTRY METHOD 03/11/2024 1:36 PM [facility] Creatinine 1.32(H) 0.70 - 1.30 mg/dL LAB CHEMISTRY METHOD 03/11/2024 1:36 PM [facility] eGFR 58(L) >=60 mL/min/1. 73m2 LAB CHEMISTRY METHOD 03/11/2024 1:36 PM [facility] Comment:Calculation based on the??Chronic Kidney Disease Epidemiology Collaboration (CKD-EPI) equation refit??without adjustment for race. BUN/Creatinine Ratio 14.4 LAB CHEMISTRY METHOD 03/11/2024 1:36 PM [facility] Calcium 8.1(L) 8.5 - 10.5 mg/dL LAB CHEMISTRY METHOD 03/11/2024 1:36 PM [facility] AST (SGOT) 16 10 - 42 unit/L LAB CHEMISTRY METHOD 03/11/2024 1:36 PM [facility] ALT (SGPT) 18 10 - 60 unit/L LAB CHEMISTRY METHOD 03/11/2024 1:36 PM EST [facility] Alkaline Phosphatase 80 42 - 121 unit/L LAB CHEMISTRY METHOD 03/11/2024 1:36 PM [facility] Total Protein 4.7(L) 6.0 - 8.0 g/dL LAB CHEMISTRY METHOD 03/11/2024 1:36 PM EST [facility] Albumin 2.6(L) 3.2 - 5.0 g/dL LAB CHEMISTRY METHOD 03/11/2024 1:36 PM [facility] Total Bilirubin 0.3 0.0 - 1.4 mg/dL LAB CHEMISTRY METHOD 03/11/2024 1:36 PM [facility] Blood Venous blood specimen / Unknown Venipuncture / Unknown 03/11/2024 12:00 PM EST 03/11/2024 12:25 PM EST us Mark Verma MD LAB BLOOD ORDERABLES Final Result [facility] [address] [place] [address], from Last 3 Months or Most Recently Relevant to Health Maintenance Insurance MEDICARE [facility] Advance Directives Documents on File Type Date Recorded Patient Er Rn Expl anation Health Care Decision (hx) 10/10/2023 AD LÓPEZ DIRECTIVE Health Care Decision (hx) 10/10/2023 AD LÓPEZ DIRECTIVE Health Care Decision (hx) 10/10/2023 AD LÓPEZ DIRECTIVE Health Care Decision (hx) 10/10/2023 AD LÓPEZ DIRECTIVE Health Care Decision (hx) 10/10/2023 AD LÓPEZ DIRECTIVE Health Care Decision (hx) 10/10/2023 AD LÓPEZ DIRECTIVE Health Care Decision (hx) 10/10/2023 AD LÓPEZ DIRECTIVE Health Care Decision (hx) 09/22/2022 AD LÓPEZ DIRECTIVE Health Care Decision (hx) 09/22/2022 AD LÓPEZ DIRECTIVE Health Care Decision (hx) 09/22/2022 AD LÓPEZ DIRECTIVE Health Care Decision (hx) 09/22/2022 AD LÓPEZ DIRECTIVE Health Care Decision (hx) 09/22/2022 AD LÓPEZ DIRECTIVE Health Care Decision (hx) 09/22/2022 AD LÓPEZ DIRECTIVE Health Care Decision (hx) 09/22/2022 AD LÓPEZ DIRECTIVE Health Care Decision (hx) 09/22/2022 AD LÓPEZ DIRECTIVE Health Care Decision (hx) 09/22/2022 AD LÓPEZ DIRECTIVE Health Care Decision (hx) 09/22/2022 AD LÓPEZ DIRECTIVE Health Care Decision (hx) 09/22/2022 AD LÓPEZ DIRECTIVE Health Care Decision (hx) 09/22/2022 AD LÓPEZ DIRECTIVE Health Care Decision (hx) 09/22/2022 AD LÓPEZ DIRECTIVE Health Care Decision (hx) 09/22/2022 AD LÓPEZ DIRECTIVE Health Care Decision (hx) 09/22/2022 AD LÓPEZ DIRECTIVE Health Care Decision (hx) 09/22/2022 AD LÓPEZ DIRECTIVE Health Care Decision (hx) 09/22/2022 AD LÓPEZ DIRECTIVE Health Care Decision (hx) 09/22/2022 AD LÓPEZ DIRECTIVE Health Care Decision (hx) 09/22/2022 AD LÓPEZ DIRECTIVE Health Care Decision (hx) 09/22/2022 HANNAH LÓPEZ DIRECTIVE Care Teams Social Media Director Relationship Specialty Start Date End Date Vandana Lamb MD [address] [place] [address] PCP - General 02/01/23
--- OUTSIDE RECORDS SUMMARY | 2024-09-12 14:23 | XMS_ITS | Encounter Summary ---
Author Name [facility] [place] [facility] [place] Organization [facility] [place] Address [address] [place] [id number] Care Team Providers Care Insurance Sales Specialist Name Role Phone DESTINY HAMILTON Primary Care [...] to Policy Rodriguez [employer] DENT[employer] DENTAL INSURANCE [facility] ILENE CULVER Suze May 01, 2019 [id number] [place] PATIENT HEALTH [place] MEDICARE SUPPLEMEN [facility] SUPPL EMENT Jan 04, 2020 [id number] [place] PATIENT HEALTH [place] MED[place] [facility] Nov 30, 2019 [id number] ORGANIZ COS EARLY RETIR EE May 01, 2015 [id number] ORGANIZAT ION Oct 30, 2012 [id number] [place] PATIENT MEDICARE (WNR) MEDICARE (M) PART A Nov 30, 2019 PART A [id number] JENNIFER MICHAEL [place] PATIENT MEDICARE (WNR) MEDICARE (M) PART B Nov 30, 2019 PART B [id number] JENNIFER MICHAEL [place] PATIENT MEDICARE (WNR) MEDICARE (M) PART A Nov 30, 2019 PART A [id number] JENNIFER MICHAEL [place] PATIENT MEDICARE (WNR) MEDICARE (M) PART B Nov 30, 2019 PART B [id number] JENNIFER MICHAEL [place] PATIENT Selected Encounter This section includes the information on record at [place] for the Encounter. Date/Time Encounter Type Encounter Description Reason Provider Source Dec 28, 2023 11:30 AM OFFICE O/P EST MOD 30 MIN PRIMARY CARE/MEDICINE ICD-10-CM I10 Essential (primary) hypertension DESTINY HAMILTON Encounter Template Text not used by [place] Assessments - Encounter Diagnoses This section includes the primary and secondary diagnoses documented for the Encounter. Date/Time Primary/Secondary Diagnosis Diagnosis Name Provider Source Jan 16, 2024 04:49 PM PRIMARY Essential (primary) hypertension DESTINY HAMILTON Jan 16, 2024 04:49 PM SECONDARY Prediabetes DESTINY HAMILTON Plan of Treatment: Future Appointments (+ 6 months) and Future Tests (+/- 45 days) The Plan of Treatment section includes future care activities for the patient from all [place] treatmentfacilities. This section includes future appointments and future orders which are active, pending or scheduled. Future Appointments This section includes appointments that were scheduled to occur 6 months from the date of the Encounter, up to a maximum of 20 appointments. The data comes from all [place] treatment facilities. Appointment Date/Time Appointment Type Appointme nt Facility Name Feb 15, 2024 02:40 PM AMBULATORY - MEDICINE [facility] [place] [facility] Feb 20, 2024 01:45 PM AMBULATORY - MEDICINE [facility] [place] [facility] Feb 22, 2024 01:30 PM AMBULATORY - MEDICINE [facility] [place] [facility] May 14, 2024 09:30 AM AMBULATORY - MEDICINE [facility] [place] [facility] Jun 26, 2024 11:30 AM AMBULATORY - MEDICINE [facility] Lab Results: +/- 30 days of the encounter This section includes the Chemistry and Hematology Lab Results on record with [place] for the patient. Radiology Reports and Pathology Reports are provided separately, in subsequent sections. Lab Results This section contains the Chemistry/Hematology Results that were resulted 30 days before or 30 daysafter the date of the Encounter. Date/Time Source Result Type Result - Unit Interpretation Reference Range Specimen Type Comment Dec 26, 2023 11:12 AM [facility] LIPID PANEL FASTING SERUM Specimen Type: SERUM No comment entered. Ordering Provider: DESTINY HAMILTON Report Released Date/Time: Jun 29, 2023 09:03 AM Reporting Lab: [address] [address] Performing Lab: [address] [address] CHOLESTEROL 121 mg/dL TRIGLYCERIDE 124 mg/dL 0-150 LDL calculated 67 mg/dL 0-129 CHOL/HDL 4.2 HDL CHOLESTEROL 29 mg/dL L 40-60 Dec 26, 2023 11:12 AM [facility] HEMOGLOBIN A1C PANEL BLOOD Specimen Type: BLO OD Comment: Values obtained from A1C measurements can vary. For atypical A1C assays, a reported value of 7.0 could actually be between 6.72 and 7.28 if measured by a reference method. A reported value of 9.0 could actually be between 8.73 and 9.27. Ref: http://www.ngsp.org/CAPdata.asp Ordering Provider: DESTINY HAMILTON Report Released Date/Time: Jun 29, 2023 09:03 AM Reporting Lab: [address] [id number] Performing Lab: [address] [address] HEMOGLOBIN A1C 5.6 4.0-5.6 Dec 26, 2023 11:12 AM [facility] LIVER FUNCTION SERUM Specimen Type: SERUM No comment entered. Ordering Provider: DESTINY HAMILTON Report Released Date/Time: Jun 29, 2023 09:03 AM Reporting Lab: [facility] [address] [facility] [address] Performing Lab: [address] [address] PROTEIN,TOTAL 5.2 g/dL L 6.0-8.3 ALBUMIN 2.9 g/dL L 3.5-5.0 ALKALINE PHOSPHATASE 72 U/L 40-150 AST 15 U/L 5-34 ALT 16 U/L BILIRUBIN, TOTAL 0.3 mg/dL 0.2-1.2 Dec 26, 2023 11:12 AM [facility] BASIC METABOLIC PANEL (fasting) SERUM Specime n Type: SERUM No comment entered. Ordering Provider: DESTINY HAMILTON Report Released Date/Time: Jun 29, 2023 09:03 AM Reporting Lab: [address] [phone] Performing Lab: [address] [address] UREA NITROGEN 16 mg/dL 7-25 GLUCOSE 109 mg/dL H 65-100 SODIUM 139 mmol/L 135-145 POTASSIUM 4.4 mmol/L 3.5-5.0 CHLORIDE 104 mmol/L 100-110 CO2 27 meq/L 20-30 CREATININE, Serum 1.19 mg/dL 0.50-1.40 eGFR(CKD-EPI 2020) 66 mL/min >60 Social History: Smoking Status (Most current) and Tobacco Use (All prior to encounter date) This section includes the most current, and the historical, smoking and tobacco- related health factors from the [place] facility where the Encounter took place. Current Smoking Status This section includes the most current smoking, or tobacco-related health factor, from the [place] facility where the Encounter took place. Date/Time Current Smoking Status Comment Janna long Jun 29, 2023 11:00 AM [place]-TOBACCO FORMER USER [facility] Tobacco Use History This section includes a history of the smoking, or tobacco-related health factors, that were collected on or before the date of the Encounter. The data comes from the [place] facility where the Encounter took place. Date/Time Smoking Status/Tobacco Use Comment Joshua acbreanna Jun 29, 2023 11:00 AM [place]-TOBACCO QUIT 15 YRS OR MORE [place] May 09, 2022 10:30 AM VA-TOBACCO FORMER USER [place] May 09, 2022 10:30 AM VA-TOBACCO QUIT 15 YRS OR MORE [place] May 10, 2021 10:00 AM VA-TOBACCO NEVER USED [place] Jan 22, 2020 10:15 AM VA-TOBACCO FORMER USER [place] Jan 22, 2020 10:15 AM VA-TOBACCO QUIT 15 YRS OR MORE [place] Dec 12, 2018 09:45 AM VA-TOBACCO FORMER USER [place] Dec 12, 2018 09:45 AM VA-TOBACCO QUIT 15 YRS OR MORE [place] Oct 09, 2017 12:10 PM QUIT TOBACCO USE > 7 YEARS AGO [place] Aug 10, 2016 10:11 AM QUIT TOBACCO USE > 7 YEARS AGO Quit 20 years ago [facility] Jun 01, 2015 09:59 AM QUIT TOBACCO USE > 7 YEARS AGO 15 years ago [place] Oct 29, 2010 08:54 AM QUIT TOBACCO USE > 7 YEARS AGO quit 10 yrs ago [facility] Encounter Notes: All associated encounter notes This section contains the clinical notes associated to the Encounter. Date/Time Encounter Note(s) Provider Source Dec 28, 2023 11:46 AM PREVENTIVE MEDICIN E NURSING NOTE: LOCAL TITLE: CLINICAL REMINDERS/NURSING STANDARD TITLE: PREVENTIVE MEDICINE NURSING NOTE DATE OF NOTE: DEC 28, 2023@11:46 ENTRY DATE: DEC 28, 2023@11:46:52 AUTHOR: JOHN DIAZ COSIGNER: URGENCY: STATUS: COMPLETED Advance Directive Screen MH AD: Patient does not have a completed advance directive on file at any facility, [facility] or outside. S/he is not interested in completing one at this time. The patient received education about Advance Directives and written notification of his/her rights. Influenza Immunization: No influenza vaccination was received during the recent influenza season. COVID-19 Immunization: Referred to another clinic for immunization (desired vaccine unavailable at this location) Herpes Zoster (Shingles) Vaccine: The patient declines to receive the recommended dose of zoster (shingles) vaccine. Immunization: ZOSTER RECOMBINANT Refusal Reason: PATIENT DECISION Patient refuses all immunization(s) in the ZOSTER group Date Documented: 12/28/23 11:47 Eye Care At-Risk Eval (Provider) : Patient identified to be at risk for the following eye condition(s): MACULAR DEGENERATION: Macular Degeneration Risk Factors Information: Reminder Term: VA-AMD RISK FACTORS Encounter Diagnosis: 01/10/2023@09:30 Z68.32 (ICD-10-CM) Body mass index [BMI] 32.0-32.9, adult rank: SECONDARY Prov. Narr. - Body mass index [BMI] 32.0-32.9, adult Provider educated patient on potential risk of permanent vision loss and recommendation to obtain eye care assessment. Patient verbalized understanding and No Referral Ordered: The patient declined/refused referral for Tele-Eye screening and/or Eye Clinic appointment. Provider educated patient of At-Risk status for identified eye condition(s) and recommendation to obtain eye care assessment. Reason/Comment: was seen 08/29/23 in [place] // JOHN DIAZ LPN PACT 10 Signed: 12/28/2023 11:48 JOHN DIAZ [place] Dec 28, 2023 07:06 AM PHYSICIAN NOTE: LOCAL TITLE: MD NOTE STANDARD TITLE: PHYSICIAN NOTE DATE OF NOTE: DEC 28, 2023@07:06 ENTRY DATE: DEC 28, 2023@07:06:38 AUTHOR: DESTINY HAMILTON EXP COSIGNER: URGENCY: STATUS: COMPLETED HISTORY OF PRESENT ILLNESS: FARHAD MICHAEL, is a 68 yo MALE , who presents at the [facility] for HTN/PreDM/Lipids/Depression/Anxie ty/WT check. Labs completed. Active problems - Computerized Problem List is the source for the followin. Depression 2. Anxiety 3. Asthma-chronic obstructive pulmonary disease overlap syndrome 4. 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 Dyspnea on exertion 7. Chronic obstructive pulmonary disease 8. Thoracic aortic aneurysm without rupture 9. Prediabetes 10. Actinic keratosis 11. Allergic rhinitis due to allergen 12. Restrictive lung disease 13. Solitary nodule of lung 14. Obstructive sleep apnea 15. Benign essential hypertension 16. Social Hx: w/2 sons([place]) & 2 daughters 17. Tobacco dependence in remission 18. Personal History of Alcoholism 19. Diverticular disease of colon 20. Screening Colonoscopy 21. Gastro-esophageal reflux (SNOMED CT [id number]) The following VA and Non-VA meds were reconciled with patient: Active Outpatient Medications (including Supplies): Issue Date Status Last Fill Active Outpatient Medications Refills Expiration ======= 1) ALBUTEROL 90MCG (CFC-F) 200D ORAL INHL ACTIVE Issu:06-29-23 Qty: 1 for 30 days Sig: INHALE 2 Refills: 1 Last:07-19-23 PUFFS BY MOUTH EVERY 4 HOURS NEEDED Expr:06-29-24 FOR BRONCHOSPASM 2) ALBUTEROL SO4 0.083% INHL 3ML Qty: 30 ACTIVE Issu:02-20-23 for 30 days Sig: INHALE 1 AMPULE IN Refills: 4 Last:06-29-23 NEBULIZER EVERY 6 HOURS NEEDED FOR Expr:02-21-24 BREATHING 3) ASPIRIN 81MG EC TAB Qty: 120 for 90 ACTIVE Issu:11-20-23 days Sig: TAKE ONE TABLET BY MOUTH Refills: 3 Last:11-21-23 ONCE DAILY TO PREVENT STROKE/HEART Expr:11-20-24 ATTACK 4) AZELASTINE 137MCG/SPRAY 200D NASAL INHL ACTIVE Issu:07-03-23 Qty: 1 for 50 days Sig: SPRAY 1 SPRAY Refills: 4 Last:07-03-23 INTO EACH NOSTRIL TWICE DAILY Expr:07-03-24 5) BETAMETHASONE DIPROPIONATE 0.05% CREAM ACTIVE Issu:06-16-23 Qty: 45 for 30 days Sig: APPLY A Refills: 1 Last:10-16-23 SMALL AMOUNT TOPICALLY TWICE DAILY FOR Expr:06-16-24 ITCHING/RASH 6) DILTIAZEM (EQV-TIAZAC) 300MG 24HR CAP ACTIVE Issu:07-24-23 Qty: 90 for 90 days Sig: TAKE ONE Refills: 1 Last:07-24-23 CAPSULE BY MOUTH ONCE DAILY FOR HIGH Expr:07-24-24 BLOOD PRESSURE 7) FLUTICAS 500/SALMETEROL 50 INHL DISK 60 ACTIVE Issu:06-29-23 Qty: 3 for 90 days Sig: INHALE 1 PUFF Refills: 3 Last:06-30-23 BY MOUTH EVERY 12 HOURS - RINSE MOUTH Expr:06-29-24 AFTER USE 8) FLUTICASONE PROP 50MCG 120D NASAL INHL ACTIVE Issu:06-29-23 Qty: 1 for 30 days Sig: INSTILL 2 Refills: 3 Last:09-22-23 SPRAYS INTO EACH NOSTRIL ONCE DAILY Expr:06-29-24 FOR NASAL IRRITATION/INFLAMMATION 9) HYDRALAZINE HCL 100MG TAB Qty: 270 for ACTIVE Issu:08-09-23 90 days Sig: TAKE ONE TABLET BY MOUTH Refills: 0 Last:11-24-23 THREE TIMES A DAY FOR HIGH BLOOD Expr:08-09-24 PRESSURE 10) HYDROXYZINE PAMOATE 25MG CAP Qty: 90 ACTIVE Issu:06-29-23 for 30 days Sig: TAKE ONE CAPSULE BY Refills: 0 Last:12-21-23 MOUTH THREE TIMES A DAY FOR ITCHING Expr:06-29-24 11) LORATADINE 10MG TAB Qty: 90 for 90 days ACTIVE Issu:12-22-23 Sig: TAKE ONE TABLET BY MOUTH ONCE Refills: 1 Last:12-22-23 DAILY FOR ALLERGY Expr:12-22-24 12) MONTELUKAST NA 10MG TAB Qty: 90 for 90 ACTIVE Issu:02-20-23 days Sig: TAKE ONE TABLET BY MOUTH Refills: 0 Last:11-24-23 ONCE DAILY FOR ASTHMA Expr:02-21-24 13) OLODATEROL/TIOTROP 2.5MCG/ACTUAT 60D INH ACTIVE Issu:05-29-23 Qty: 3 for 90 days Sig: INHALE 2 Refills: 1 Last:11-15-23 PUFFS (1 DOSE) BY MOUTH ONCE DAILY Expr:05-29-24 14) OMEPRAZOLE 20MG EC CAP Qty: 90 for 90 ACTIVE Issu:01-10-23 days Sig: TAKE ONE CAPSULE BY MOUTH Refills: 0 Last:12-21-23 EVERY MORNING 30 MINUTES BEFORE Expr:01-11-24 BREAKFAST 15) ONDANSETRON HCL 8MG TAB Qty: 30 for 10 ACTIVE Issu:11-28-23 days Sig: TAKE ONE TABLET BY MOUTH Refills: 2 Last:11-29-23 EVERY 8 HOURS NEEDED Expr:11-28-24 16) ROPINIROLE HCL 1MG TAB Qty: 90 for 30 ACTIVE Issu:11-28-23 days Sig: TAKE ONE TABLET BY MOUTH Refills: 2 Last:11-29-23 THREE TIMES A DAY Expr:11-28-24 17) SERTRALINE HCL 100MG TAB Qty: 45 for 90 ACTIVE Issu:07-18-23 days Sig: TAKE ONE-HALF TABLET BY Refills: 0 Last:10-27-23 MOUTH ONCE DAILY FOR AFFECTIVE Expr:07-18-24 DISORDER 18) TAMSULOSIN HCL 0.4MG CAP Qty: 90 for 90 ACTIVE Issu:12-19-23 days Sig: TAKE ONE CAPSULE BY MOUTH Refills: 3 Last:12-19-23 AT BEDTIME Expr:12-19-24 Start Date Active Non-VA Medications Refills Expiration ======= 1) Non-VA VITAMIN B COMPLEX CAP Si ACTIVE CAPSULE BY MOUTH ONCE DAILY 19 Total Medications ALLERGIES: ========= Patient has answered [facility] LAB HISTORY: CHEM 7 TREND Collection DT Spec GLUCOSE BUN CREATIN Sodium K+/Pot CL CO2 12/26/2023 11:12 SERUM 109 H 16 1.19 139 4.4 104 27 06/29/2023 12:14 SERUM 107 H 17 1.50 H 139 4.4 103 29 06/20/2023 12:23 SERUM 93 23 1.78 H 138 4.9 101 29 01/09/2023 12:32 SERUM 141 H 14 1.13 138 4.0 103 25 06/01/2022 09:55 SERUM 117 H 19 1.31 139 4.1 100 28 HEMOGLOBIN A1C TREND Collection DT Spec HGBA1c 12/26/2023 11:12 BLOOD 5.6 06/20/2023 12:23 BLOOD 5.6 01/09/2023 12:32 BLOOD 5.5 06/01/2022 09:55 BLOOD 6.0 H 06/08/2021 08:56 BLOOD 6.0 H LIPID PANEL TREND Collection DT Spec CHOL HDL CHO/HDL LDL-c TRIG 12/26/2023 11:12 SERUM 121 29 L 4.2 67 124 06/20/2023 12:23 SERUM 171 39 L 4.4 100 161 H 06/01/2022 09:55 SERUM 159 46 3.5 97 82 06/08/2021 08:56 SERUM 153 46 3.3 80 134 01/22/2020 10:06 SERUM 157 53 3.0 92 61 LIVER PANEL TREND Collection DT Spec AST ALT T BILI ALK MARY T. PROT ALBUMIN 12/26/2023 11:12 SERUM 15 16 0.3 72 5.2 L 2.9 L 06/20/2023 12:23 SERUM 15 15 0.4 90 6.9 3.8 01/09/2023 12:32 SERUM 13 15 0.4 80 7.0 3.7 06/01/2022 09:55 SERUM 23 29 0.6 65 7.3 4.0 06/08/2021 08:56 SERUM 20 31 0.4 56 7.1 3.8 HISTORY: PERIOD OF SERVICE - [facility] [employer] FROM Jan TO Jan COMBAT SERVICE INDICATED: No VITAL SIGNS: Blood Pressure 118/70 (12/28/2023 11:46) Pulse 73 (12/28/2023 11:46) Respiration 18 (12/28/2023 11:46) Pulse Oximetry 95% (12/28/2023 11:46) Temperature 97.4 F [36.3 C] (12/28/2023 11:46) Pain 0 (12/28/2023 11:46) Height 69 in [175.3 cm] (12/28/2023 11:46) Weight 184.6 lb [83.73 kg] (12/28/2023 11:46) BMI BMI: 27.3 REVIEW OF SYSTEMS: CARDIOVASCULAR: No chest pain, no palpitations RESPIRATORY: No SOB, no wheezing GASTROINTESTINAL: No abd pain, no N/V/D MUSCULOSKELETAL: No joint pain, no joint swelling PSYCHIATRIC: No anxiety, no trouble sleeping, no depression NEUROLOGIC: No H/A, no numbness, no weakness, no tingling EXAMINATION: GENERAL: WD/WN , pleasant & in NAD HEENT: Moist mucosa NECK: Supple, no carotid bruits HEART: RRR, S1-S2, no murmurs LUNGS: diffuse wheezing B/L lung walters, distant BS ABDOMEN: Soft, NT/ND EXTREMITIES: FROM x 4, no edema ASSESSMENT/PLAN: 1. Hypertension: well controlled on diltiazem 300mg/day (due to underlying lung dz) and hydralazine 100mg/TID 2. Prediabetes: counseled to reduce carbs/simple sugars in diet FBS 109 - A1c 5.6% 3. Depression and Anxiety D/O: stable on sertraline 50mg/day 4. Allergic Rhinitis: on fluticasone NS, D/C'd cetrizine 10mg/day (? ineffective) and started loratidine 10mg/day in 06/2023 5. COPD: advanced/severe, also has asthma/COPD overlap syndrome, on Striverdi Respimat 2.5mcg daily, montelukast 10mg/QHS, Wixela 500-50 BID, albuterol inh Q4 prn, managed by pulmonary/Dr Villasenor, currently experiencing wheezing and an aexacerbation of his COPD, will Rx prednisone 40mg/daily x 5 days FOLLOW UP: 6 mths - AWE - FBW prior ========= UPCOMING APPOINTMENTS: 09/02/2024 13:30 CWM/NO/OPTOMETRY/MERHAR No barriers; Patient understands and agrees to current treatment plan. If pt has any questions, concerns, or changes in current health status he/she will call or come in to the [facility]. Medication Reconciliation: Outpatient: Has the patient been taking medications as documented in the EMLR? YES: The patient has been taking medications as documented in the EMLR. Essential Medication List for Review used to complete this medication reconciliation. INCLUDED IN THIS LIST: Alphabetical list of active outpatient prescriptions dispensed from this [facility] (local) and dispensed from another [place] or [place] facility (remote) as well as inpatient orders (local, pending and active), local clinic medications, locally documented non-VA medications, and local prescriptions that have or been discontinued in the past 90 days. - All changes in medications, including all non-VA/Herbal/OTC medications were entered into CPRS. - If there were any medications the patient should no longer take, they were discontinued. - The patient/caregiver was instructed to update this list, discard old lists, and take this list to the next appointment, whether with a VA or non-VA provider. JLV Link Data on this list may not be complete. Please check JLV. Allergies/ADRs (Tool #5) FACILITY ALLERGY/ADR -------- No Remote Allergy/ADR Data available for this patient [place] [facility] [place] [facility] No Known Allergies [facility] (Tool #1) INCLUDED IN THIS LIST: Alphabetical list of active outpatient prescriptions dispensed from this [facility] (local) and dispensed from another [facility] or [facility] facility (remote) as well as inpatient orders (local pending and active), local clinic medications, locally documented non-VA medications, and local prescriptions that have or been discontinued in the past 90 days. Non-VA Meds Last Documented On: Feb 03, 2020 NOTE The display of VA prescriptions dispensed from another VA or DoD facility (remote) is limited to active outpatient prescription entries matched to National Drug File at the originating site and may not include some items such as investigational drugs, compounds, etc. NOT INCLUDED IN THIS LIST: Medications self-entered by the patient into personal health records (i.e. [employer]) are NOT included in this list. Non-VA medications documented outside this [place], remote inpatient orders (regardless of status) and remote clinic medications are NOT included in this list. The patient and provider must always discuss medications the patient is taking, regardless of where the medication was dispensed or obtained. ------ OUTPT ALBUTEROL 90MCG (CFC-F) 200D ORAL INHL (Status = Active) INHALE 2 PUFFS BY MOUTH EVERY 4 HOURS NEEDED FOR BRONCHOSPASM Rx# [id number] Last Released: 07/18/23 Qty/Days Supply: 05/30 Rx Expiration Date: 06/29/24 Refills Remainin Indication: FOR BRONCHOSPASM OUTPT ALBUTEROL SO4 0.083% INHL 3ML (Status = Active) INHALE 1 AMPULE IN NEBULIZER EVERY 6 HOURS NEEDED FOR BREATHING Rx# [id number] Last Released: 06/29/23 Qty/Days Supply: Rx Expiration Date: 02/21/24 Refills Remainin Indication: FOR BRONCHOSPASM OUTPT ASPIRIN 81MG EC TAB (Status = Discontinued) TAKE ONE TABLET BY MOUTH ONCE DAILY TO PREVENT STROKE/HEART ATTACK Rx# [id number] Last Released: 06/30/23 Qty/Days Supply: 120/ Rx Expiration Date: 10/20/23 Refills Remainin Indication: FOR MYOCARDIAL REINFARCTION PREVENTION OUTPT ASPIRIN 81MG EC TAB (Status = Active) TAKE ONE TABLET BY MOUTH ONCE DAILY TO PREVENT STROKE/HEART ATTACK Rx# [id number] Last Released: 11/24/23 Qty/Days Supply: 120/90 Rx Expiration Date: 11/20/24 Refills Remainin Indication: FOR MYOCARDIAL REINFARCTION PREVENTION OUTPT AZELASTINE 137MCG/SPRAY 200D NASAL INHL (Status = Active) SPRAY 1 SPRAY INTO EACH NOSTRIL TWICE DAILY Rx# [id number] Last Released: 07/05/23 Qty/Days Supply: Rx Expiration Date: 07/03/24 Refills Remainin OUTPT BETAMETHASONE DIPROPIONATE 0.05% CREAM (Status = Active) APPLY A SMALL AMOUNT TOPICALLY TWICE DAILY FOR ITCHING/RASH Rx# [id number] Last Released: 10/16/23 Qty/Days Supply: Rx Expiration Date: 06/16/24 Refills Remainin OUTPT DILTIAZEM (EQV-TIAZAC) 300MG 24HR CAP (Status = Active) TAKE ONE CAPSULE BY MOUTH ONCE DAILY FOR HIGH BLOOD PRESSURE Rx# [id number] Last Released: 07/24/23 Qty/Days Supply: 90/ Rx Expiration Date: 07/24/24 Refills Remainin Indication: FOR HIGH BLOOD PRESSURE OUTPT FLUTICAS 500/SALMETEROL 50 INHL DISK 60 (Status = Active) INHALE 1 PUFF BY MOUTH EVERY 12 HOURS - RINSE MOUTH AFTER USE Rx# [id number] Last Released: 06/30/23 Qty/Days Supply: Rx Expiration Date: 06/29/24 Refills Remainin Indication: FOR CONTROLLER MEDICATION FOR ASTHMA OUTPT FLUTICASONE PROP 50MCG 120D NASAL INHL (Status = Active) INSTILL 2 SPRAYS INTO EACH NOSTRIL ONCE DAILY FOR NASAL IRRITATION/INFLAMMATION Rx# [id number] Last Released: 09/22/23 Qty/Days Supply: 05/30 Rx Expiration Date: 06/29/24 Refills Remainin Indication: FOR NASAL IRRITATION/INFLAMMATION OUTPT HYDRALAZINE HCL 100MG TAB (Status = Active) TAKE ONE TABLET BY MOUTH THREE TIMES A DAY FOR HIGH BLOOD PRESSURE Rx# [id number] Last Released: 11/28/23 Qty/Days Supply: / Rx Expiration Date: 08/09/24 Refills Remainin Indication: FOR HIGH BLOOD PRESSURE OUTPT HYDROXYZINE PAMOATE 25MG CAP (Status = Active) TAKE ONE CAPSULE BY MOUTH THREE TIMES A DAY FOR ITCHING Rx# [id number] Last Released: 12/21/23 Qty/Days Supply: Rx Expiration Date: 06/29/24 Refills Remainin Indication: FOR ITCHING OUTPT LORATADINE 10MG TAB (Status = Discontinued) TAKE ONE TABLET BY MOUTH ONCE DAILY FOR ALLERGY Rx# [id number] Last Released: 09/09/23 Qty/Days Supply: Rx Expiration Date: 06/29/24 Refills Remainin Indication: FOR ALLERGY OUTPT LORATADINE 10MG TAB (Status = Active) TAKE ONE TABLET BY MOUTH ONCE DAILY FOR ALLERGY Rx# [id number] Last Released: 12/27/23 Qty/Days Supply: Rx Expiration Date: 12/22/24 Refills Remainin Indication: FOR ALLERGY OUTPT MONTELUKAST NA 10MG TAB (Status = Active) TAKE ONE TABLET BY MOUTH ONCE DAILY FOR ASTHMA Rx# [id number] Last Released: 11/24/23 Qty/Days Supply: 90 Rx Expiration Date: 02/21/24 Refills Remainin OUTPT OLODATEROL/TIOTROP 2.5MCG/ACTUAT 60D INH (Status = Active) INHALE 2 PUFFS (1 DOSE) BY MOUTH ONCE DAILY Rx# [id number] Last Released: 11/09/23 Qty/Days Supply: Rx Expiration Date: 05/29/24 Refills Remainin Indication: FOR COPD OUTPT OMEPRAZOLE 20MG EC CAP (Status = Active) TAKE ONE CAPSULE BY MOUTH EVERY MORNING 30 MINUTES BEFORE BREAKFAST Rx# [id number] Last Released: 12/21/23 Qty/Days Supply: Rx Expiration Date: 01/11/24 Refills Remainin OUTPT ONDANSETRON HCL 8MG TAB (Status = Active) TAKE ONE TABLET BY MOUTH EVERY 8 HOURS NEEDED Rx# [id number] Last Released: 11/30/23 Qty/Days Supply: 27/02 Rx Expiration Date: 11/28/24 Refills Remainin OUTPT ROPINIROLE HCL 1MG TAB (Status = Discontinued) TAKE ONE TABLET BY MOUTH THREE TIMES A DAY Rx# [id number] Last Released: 10/27/23 Qty/Days Supply: Rx Expiration Date: 08/15/24 Refills Remainin OUTPT ROPINIROLE HCL 1MG TAB (Status = Active) TAKE ONE TABLET BY MOUTH THREE TIMES A DAY Rx# [id number] Last Released: 11/30/23 Qty/Days Supply: Rx Expiration Date: 11/28/24 Refills Remainin OUTPT SERTRALINE HCL 100MG TAB (Status = Active) TAKE ONE-HALF TABLET BY MOUTH ONCE DAILY FOR AFFECTIVE DISORDER Rx# [id number] Last Released: 10/27/23 Qty/Days Supply: Rx Expiration Date: 07/18/24 Refills Remainin Indication: FOR AFFECTIVE DISORDER OUTPT TAMSULOSIN HCL 0.4MG CAP (Status = Discontinued) TAKE ONE CAPSULE BY MOUTH ONCE DAILY TAKE 1/2 HOUR AFTER LAST MEAL OF THE DAY Rx# [id number] Last Released: 11/20/23 Qty/Days Supply: Rx Expiration Date: 01/11/24 Refills Remainin OUTPT TAMSULOSIN HCL 0.4MG CAP (Status = Active) TAKE ONE CAPSULE BY MOUTH AT BEDTIME Rx# [id number] Last Released: 12/21/23 Qty/Days Supply: Rx Expiration Date: 12/19/24 Refills Remainin Non-VA VITAMIN B COMPLEX CAP TAKE 1 CAPSULE BY MOUTH ONCE DAILY Non-[facility] medication recommended by [facility] provider. ------ SUPPLIES ------ /wilmer/ DESTINY HAMILTON MD Primary Care Physician Signed: 12/28/2023 12:20 DESTINY HAMILTON [place]
--- OUTSIDE RECORDS SUMMARY | 2024-09-12 14:23 | XMS_ITS | Clinical Summary ---
Author Organization [facility] Address [address] [place] [address] Care Team Providers Care Jewel Grinder Name Role Phone Vandana Lamb MD Primary Care Provider [phone] Allergies Active Allergy Reactions Criticality Noted Date Comments Beta Adrenergic Blockers Other (See Comments) High 02/08/2023 Pt had while hospitalized Medications Medication Sig Dispensed Refills Start Date End Date Status Tiotropium [place]-Olodaterol (STIOLTO RESPIMAT IN) Inhale into the lungs. 0 Active fluticasone-salmeter ol ([place]ixela Inhub) 500-50 MCG/ACT AEPB Inhale into the lungs. 0 Active ALBUTEROL IN Inhale into the lungs. 0 Active omeprazole (PriLOSEC) 20 MG capsule Take 1 capsule (20 mg total) by mouth daily. 0 Active hydrALAZINE (APRESOLINE) 100 MG tablet Take 1 tablet (100 mg total) by mouth 2 (two) times a day. 0 Active dilTIAZem (CARDIZEM CD) 300 MG 24 hr capsule Take 1 capsule (300 mg total) by mouth daily. 0 Active cetirizine (ZyrTEC) 5 MG tablet Take 1 tablet (5 mg total) by mouth daily. 0 Active tamsulosin (FLOMAX) 0.4 MG CAPS 1 capsule (0.4 mg total). 0 01/10/2023 Active montelukast (SINGULAIR) 10 MG tablet Take 1 tablet (10 mg total) by mouth every night at bedtime. 0 05/09/2019 Active aspirin 81 MG EC tablet 1 tablet (81 mg total). 0 10/19/2022 Active hydrOXYzine (VISTARIL) 25 MG capsule Take 1 capsule (25 mg total) by mouth 3 (three) times a day as needed for itching. 90 capsule 5 04/28/2023 Active betamethasone dipropionate (DIPROSONE) 0.05 % cream Apply topically 2 (two) times a day. 45 g 3 06/16/2023 Active sertraline (ZOLOFT) 100 MG tablet Take 0.5 tablets (50 mg total) by mouth. 0 07/18/2023 Active rOPINIRole (Requip) 1 MG tablet Take 1 tablet (1 mg total) by mouth 3 (three) times a day. 90 tablet 2 11/28/2023 Active ondansetron (ZOFRAN) 8 MG tablet Take 1 tablet (8 mg total) by mouth every 8 (eight) hours as needed for nausea. 30 tablet 2 11/28/2023 Active Active Problems Problem Noted Date Diagnosed Date Renal cell cancer, left 02/08/2023 Social History Tobacco Use Types Packs/Day Years Used Date Smoking Tobacco: Never Assessed Sex and Gender Information Value Date Recorded Sex Assigned at Male 02/01/2023 2:00 PM EDT Gender Identity Not on file Sexual Orientation Not on file Job Start Date Occupation Industry Not on file Not on file Not on file Last Filed Vital Signs Vital Sign Reading Time Taken Comments Blood Pressure 102/59 01/30/2024 2:05 PM EDT Pulse 78 01/30/2024 2:05 PM EDT Temperature 36.8 ??C (98.3 ??F) 01/30/2024 2:05 PM ED T Respiratory Rate 18 01/09/2024 2:16 PM EDT Oxygen Saturation 97% 01/30/2024 2:05 PM EDT Inhaled Oxygen Concentration - - Weight 83.7 kg (184 lb 8.4 oz) 01/30/2024 2:05 P M EDT Height 175.3 cm (5' 9 ) 01/30/2024 1:28 PM EDT Body Mass Index 27.25 01/30/2024 1:28 PM EDT Plan of Treatment Health Maintenance Due Date Last Done Comments Hepatitis C Screening 1954 Depression Screening 1966 BMI Counseling 1972 Preventative Health Evaluation 1972 Colon Cancer Screening (Colonoscopy) 12/26/1999 Fall Risk Assessment 12/26/2019 Shingrix-Zoster Vaccine (2 of 2) 06/18/2020 04/23/2020 COVID-19 Vaccine ( season) 2023 04/16/2022, 02/19/2021, 07/30/2020, Additional history exists Influenza Vaccine (#1) 2023 , 01/22/2020, 03/01/2019, Additional history exists RSV Adult > 60+ Yrs or (1 - 1-dose 75+ series) 2029 DTap / Tdap / Td (4 - Td or Tdap) 05/10/2031 05/10/2021, 11/19/2012, 03/01/2010, Additional history exists Pneumococcal Vaccine Completed 06/09/2022, 02/19/2021, 03/07/2011 Hepatitis B Vaccines Completed 11/16/2022, 07/07/2022, 06/09/2022 RSV Ped < 20 months Aged Out No longe r eligible based on patient's age to complete this topic Care Teams Jewel Grinder Relationship Specialty Start Date End Date Vandana Lamb MD [address] [place] [address] PCP - General Family Medicine 02/01/23
--- OUTSIDE RECORDS SUMMARY | 2024-09-12 14:23 | XMS_ITS | Continuity of Care Document ---
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 It does not include entries that were removed or entered in error. Problem Status Onset Date Problem Type Date of Resolution Comments Source Dyspnea on exertion Active 023 Condition September 15, 2022 Entered By: DESTINY HAMILTON Comment: Vet mod-severely out of breath, Nuclear Stress Test ordered, CARDIOLOGY Consult Appt. on 06/23/22 @ 13:00May 2022 Entered By: DESTINY HAMILTON Comment: Arrhythmias Atrial Premature Beats, Isolated. Stress Interpretation No EKG evidence of ischemia.September 15, 2022 Entered By: DESTINY HAMILTON Comment: Summary: 1. Myocardial perfusion imaging is abnormal. There is a medium in size, mild in intensity fixed perfusion defect involving the apical inferior, intensity fixed perfusion defect involvingMay 2022 Entered By: DESTINY HAMILTON Comment: inferior and basal inferior kulkarni concerning for myocardial scar.September 15, 2022 Entered By: DESTINY HAMILTON Comment: 2. LV E.F. is 57% at rest and 58 % after IV administration of Regadenoson with normal wall motion and thickening.September 15, 2022 Entered By: DESTINY HAMILTON Comment: 3. EKG portion of the stress test is reported separately. 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 Quintero at [facility] with liquid nitrogen. 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, 2024 Entered By: DESTINY HAMILTON Comment: Stage III - Left Kidney - s/p nephrectomy 12/2022 [place] Depression Active Condition [place] Diverticular disease of colon Active Condition May 09 Entered By: DESTINY HAMILTON Comment: Per colonoscopy 09/12/18 - extensive in the sigmoid colon [place] Gastro-esophageal reflux (SNOMED CT [id number]) Active Condition [place] History of cardiac arrest Active Condition Oct 25, 2022 Entered By: DESTINY HAMILTON Comment: 09/15/22 - [facility] - with [facility] [place] Obstructive sleep apnea Active Condition May 09, 2022 Entered By: DESTINY HAMILTON Comment: 08/15/18 - Sleep Study @ [facility] - mild-moderate, periodic limb [facility] Personal History of Alcoholism Active Condition Jun 27, 2011 Entered By: ALICIA RICO Comment: ETOH: used to be heavy: NONE: quit in 05-01-1982 [place] Prediabetes [facility] Restrictive lung disease Active Condition Nov 29, 2017 Entered By: ZAHRA MCCARTHY Comment: Diagn[facility] by [facility] in August [facility] Screening Colonoscopy Active Condition May 09, 2022 Entered By: DESTINY HAMILTON Comment: 09/12/18 - large internal hemorrhoids, sigmoid diverticula - repeat [address] Dipesh Larson [place] Social Hx: w/2 sons([place]) & 2 daughters Active Condition [place] Solitary nodule of lung Active Condition May 09, 2022 Entered By: DESTINY HAMILTON Comment: Found on Chest CT in Jun Entered By: DESTINY HAMILTON Comment: CT Chest 05/2019 & 05/2020 - no pulmonary nodules [facility] [place] Thoracic aortic aneurysm without rupture Active Condition Jun 23, 2022 Entered By: ANAHY MCKEON Comment: CT, Thorax JUN 23: Stable 4.2 CM [facility] Thoraic Aortic AneurysmJun 23, 2022 Entered By: ANAHY MCKEON Comment: Recommendation is to repeat CT of Thorax Two Yrs (JUN 25) [place] Tobacco dependence in remission Active Condition Jun 27, 2011 Entered By: ALICIA RICO Comment: Smoked 2 ppd X 20 years: quit in 1999 [place] Bereavement Inactive Condition 05/09/2022 [facility] Chronic bronchitis Inactive Condition 10/19/2017 [place] Hip: arthralgia (pain on rotation, pain in groin) Inactive Condition 05/09/2022 [place] Impotence of organic origin Inactive Condition 05/09/2022 [facility] Insomnia, unspecified (ICD-9-CM 780.52) Inactive Condition 05/17/2017 [facility] Other dyspnea and respiratory abnormality (ICD-9-CM 786.09) Inactive Condition 10/19/2017 [facility] Pain in joint involving shoulder region Inactive Condition 05/09/2022 [facility] Wheezing Inactive Condition 10/19/2017 [facility] Diagnosis: ICD-10-CM I10 Essential (primary) hypertension Active Diagnosis [place] Diagnosis: ICD-10-CM Z46.1 Encounter for fitting and adjustment of hearing aid Active Diagnosis [facility] Diagnosis: ICD-10-CM H90.3 Sensorineural hearing loss, bilateral Active Diagnosis [facility] Diagnosis: ICD-10-CM Z46.0 Encounter for fit/adjst of spectacles and contact lenses Active Diagnosis [facility] [place] Diagnosis: ICD-10-CM H25.813 Combined forms of age-related cataract, bilateral Active Diagnosis [facility] Diagnosis: ICD-10-CM Z02.89 Encounter for other administrative examinations Active Diagnosis [facility] Diagnosis: ICD-10-CM D41.02 Neoplasm of uncertain behavior of left kidney Active Diagnosis [facility] [place] Medications Combined list of outpatient medications from Department of Defense and Veterans Affairs facilities.Medications provided include 1) outpatient medications from the last 15 months, and 2) patient-reported medications. Medication Details Route Status Patient Instructions Prescription Expires Prescription Number Last Dispense Date Ordering Provider Order Date Order Qty Source ALBUTEROL 90MCG/ACTUA T (CFC-F) INHL,ORAL,8 .5GM DOSE COUNTER INHALE 2 PUFFS BY MOUTH EVERY 4 HOURS NEEDED FOR [place] RESPIR ATORY (INHAL ATION) ACTIVE 07/04/2025 [id number] 5 MONAE HAMILTON SA 2024 1 [place] ALBUTEROL 90MCG/ACTUA T (CFC-F) INHL,ORAL,8 .5GM DOSE COUNTER INHALE 2 PUFFS BY MOUTH EVERY 4 HOURS NEEDED FOR [place]M RESPIR ATORY (INHAL ATION) DISCONT INUED 04/20/2025 [id number] 5 MONAE HAMILTON SA 2023 1 [facility] ALBUTEROL 90MCG/ACTUA T (CFC-F) INHL,ORAL,8 .5GM DOSE COUNTER INHALE 2 PUFFS BY MOUTH EVERY 4 HOURS NEEDED FOR [place]M RESPIR ATORY (INHAL ATION) DISCONT INUED 06/29/2024 [id number] 4 MONAE HAMILTON SA 2023 1 [place] ALBUTEROL SO4 0.083% INHL,3ML INHALE 1 AMPULE IN NEBULIZE R EVERY 6 HOURS NEEDED FOR BREATHIN G RESPIR ATORY (INHAL ATION) 02/21/2024 [id number] 4 MONAE HAMILTON SA 2022 30 [place] ASPIRIN 81MG TAB,EC TAKE ONE TABLET BY MOUTH ONCE DAILY TO PREVENT STROKE/H EART ATTACK ORAL ACTIVE 11/20/2024 [id number] 5 MONAE HAMILTON SA 2023 120 [facility] [place] ASPIRIN 81MG TAB,EC TAKE ONE TABLET BY MOUTH ONCE DAILY TO PREVENT STROKE/H EART ATTACK ORAL DISCONT INUED 10/20/2023 [id number] 4 FLORENTINO BROOKE O 2022 120 [place] AZELASTINE HCL 137MCG/SPRA Y INHL,NASAL, 30ML SPRAY 1 SPRAY INTO EACH NOSTRIL TWICE DAILY NASAL 07/03/2024 [id number] 5 DONNERIBERTO REYNA AMDOTTIE S 2023 1 [facility] BETAMETHASO NE DIPROPIONAT E 0.05% CREAM,TOP APPLY A SMALL AMOUNT TOPICALL Y TWICE DAILY FOR ITCHING/ RASH TOPICA L ACTIVE 04/27/2025 [id number] 5 Bowen HARRY A 2023 45 [place] BETAMETHASO NE DIPROPIONAT E 0.05% CREAM,TOP APPLY A SMALL AMOUNT TOPICALL Y TWICE DAILY FOR ITCHING/ RASH TOPICA L DISCONT INUED 06/16/2024 [id number] 4 Bowen HARRY 2023 45 [place] CHOLECALCIF CHELSY 50MCG (2,000UNIT) TAB TAKE ONE TABLET BY MOUTH ONCE DAILY FOR VITAMIN D DEFICIEN CY FOR VITAMIN SUPPLEME NTATION ORAL ACTIVE 06/27/2025 [id number] 5 MONAE HAMILTON SA 2024 100 [place] DILTIAZEM (EQV-CARDIZ EM AB3) 300MG 24HR CAP TAKE ONE CAPSULE BY MOUTH ONCE DAILY FOR HIGH BLOOD PRESSURE ORAL DISCONT INUED (EDIT) 07/18/2024 [id number] 4 MONAE HAMILTON SA 2023 90 [place] DILTIAZEM (EQV-TIAZAC AB4) 300MG 24HR CAP TAKE ONE CAPSULE BY MOUTH ONCE DAILY FOR HIGH BLOOD PRESSURE ORAL SUSPEND ED 04/20/2025 [id number] 5 MONAE HAMILTON SA 2023 90 [facility] DILTIAZEM (EQV-TIAZAC AB4) 300MG 24HR CAP TAKE ONE CAPSULE BY MOUTH ONCE DAILY FOR HIGH BLOOD PRESSURE ORAL DISCONT INUED 07/24/2024 [id number] 4 MONAE HAMILTON SA 2023 90 [place] FLUTICASONE 500MCG/SALM ETEROL 50MCG INHL,ORAL,D ISKUS,60 INHALE 1 PUFF BY MOUTH EVERY 12 HOURS - RINSE MOUTH AFTER USE RESPIR ATORY (INHAL ATION) 06/29/2024 [id number] 5 ERIBERTO POP AMMAD S 2023 3 [facility] FLUTICASONE PROPIONATE 50MCG/SPRAY SOLN,NASAL, 16GM INSTILL 2 SPRAYS INTO EACH NOSTRIL ONCE DAILY FOR NASAL IRRITATI ON/INFLA MMATION NASAL 06/29/2024 [id number] 4 MONAE HAMILTON SA 2023 1 [place] HYDRALAZINE HCL 100MG TAB TAKE ONE TABLET BY MOUTH THREE TIMES A DAY FOR HIGH BLOOD PRESSURE ORAL ACTIVE 06/27/2025 [id number] 5 MONAE HAMILTON SA 2024 270 [place] HYDRALAZINE HCL 100MG TAB TAKE ONE TABLET BY MOUTH THREE TIMES A DAY FOR HIGH BLOOD PRESSURE ORAL DISCONT INUED 02/19/2025 [id number] 5 MONAE HAMILTON SA 2023 270 [place] HYDRALAZINE HCL 100MG TAB TAKE ONE TABLET BY MOUTH THREE TIMES A DAY FOR HIGH BLOOD PRESSURE ORAL DISCONT INUED 08/09/2024 [id number] 4 MONAE HAMILTON SA 2023 270 [place] HYDROXYZINE PAMOATE 25MG CAP TAKE ONE CAPSULE BY MOUTH THREE TIMES A DAY FOR ITCHING ORAL ACTIVE 01/12/2025 [id number] 5 MONAE HAMILTON SA 2023 90 [place] HYDROXYZINE PAMOATE 25MG CAP TAKE ONE CAPSULE BY MOUTH THREE TIMES A DAY FOR ITCHING ORAL DISCONT INUED 06/29/2024 [id number] 4 MONAE HAMILTON SA 2023 90 [place] IPRATROPIUM BR 0.06% SOLN,SPRAY, NASAL INSTILL 2 SPRAYS INTO EACH NOSTRIL THREE TIMES A DAY TO FOUR TIMES A DAY FOR RUNNY NOSE NASAL ACTIVE 08/10/2025 [id number] 5 MONAE HAMILTON SA 2024 15 [place] LORATADINE 10MG TAB TAKE ONE TABLET BY MOUTH ONCE DAILY FOR ALLERGY ORAL ACTIVE 06/27/2025 [id number] 5 MONAE HAMILTON SA 2024 90 [place] LORATADINE 10MG TAB TAKE ONE TABLET BY MOUTH ONCE DAILY FOR ALLERGY ORAL DISCONT INUED 12/22/2024 [id number] 4 MONAE HAMILTON SA 2023 90 [place] LORATADINE 10MG TAB TAKE ONE TABLET BY MOUTH ONCE DAILY FOR ALLERGY ORAL DISCONT INUED 06/29/2024 [id number] 4 MONAE HAMILTON SA 2023 90 [place] MONTELUKAST NA 10MG TAB TAKE ONE TABLET BY MOUTH ONCE DAILY FOR ASTHMA ORAL ACTIVE 02/19/2025 [id number] 5 MONAE HAMILTON SA 2023 90 [place] MONTELUKAST NA 10MG TAB TAKE ONE TABLET BY MOUTH ONCE DAILY FOR ASTHMA ORAL DISCONT INUED 02/21/2024 [id number] 4 MONAE HAMILTON SA 2022 90 [place] OLODATEROL 2.5MCG/TIOT ROPIUM 2.5MCG/ACTU AT INHL,ORAL,6 0D,4GM INHALE 2 PUFFS (1 DOSE) BY MOUTH ONCE DAILY RESPIR ATORY (INHAL ATION) ACTIVE 08/14/2025 [id number] 5 [facility] 20[facility] 3 [facility] [place] OLODATEROL 2.5MCG/TIOT ROPIUM 2.5MCG/ACTU AT INHL,ORAL,6 0D,4GM INHALE 2 PUFFS (1 DOSE) BY MOUTH ONCE DAILY RESPIR ATORY (INHAL ATION) 05/29/2024 [id number] 4 MONAE HAMILTON SA 2023 3 [place] OMEPRAZOLE 20MG CAP,EC TAKE ONE CAPSULE BY MOUTH EVERY MORNING 30 MINUTES BEFORE BREAKFAS T ORAL ACTIVE 03/26/2025 [id number] 5 MONAE HAMILTON SA 2023 90 [place] OMEPRAZOLE 20MG CAP,EC TAKE ONE CAPSULE BY MOUTH EVERY MORNING 30 MINUTES BEFORE BREAKFAS T ORAL DISCONT INUED 01/11/2024 [id number] 4 MONAE HAMILTON SA 2022 90 [place] ONDANSETRON HCL 8MG TAB TAKE ONE TABLET BY MOUTH EVERY 8 HOURS NEEDED ORAL ACTIVE 11/28/2024 [id number] 4 Bowen HARRY IMOTHY A 2023 30 [place] PREDNISONE 20MG TAB TAKE TWO TABLETS BY MOUTH ONCE DAILY EXACERBA TION OF COPD ORAL 01/27/2024 [id number] 4 MONAE HAMILTON SA 2023 10 [place] ROPINIROLE HCL 1MG TAB TAKE ONE TABLET BY MOUTH THREE TIMES A DAY ORAL DISCONT INUED BY PROVIDE R 11/28/2024 [id number] 4 Bowen HARRY IMOTHY A 2023 90 [place] ROPINIROLE HCL 1MG TAB TAKE ONE TABLET BY MOUTH THREE TIMES A DAY ORAL DISCONT INUED 08/15/2024 [id number] 4 Bowen HARRY IMOTHY A 2023 90 [place] SERTRALINE HCL 100MG TAB TAKE ONE-HALF TABLET BY MOUTH ONCE DAILY FOR AFFECTIV E DISORDER ORAL ACTIVE 06/27/2025 [id number] 5 MONAE HAMILTON SA 2024 45 [place] SERTRALINE HCL 100MG TAB TAKE ONE-HALF TABLET BY MOUTH ONCE DAILY FOR AFFECTIV E DISORDER ORAL DISCONT INUED 01/12/2025 [id number] 4 MONAE HAMILTON SA 2023 45 [place] SERTRALINE HCL 100MG TAB TAKE ONE-HALF TABLET BY MOUTH ONCE DAILY FOR AFFECTIV E DISORDER ORAL DISCONT INUED 07/18/2024 [id number] 4 MONAE HAMILTON SA 2023 45 [place] TAMSULOSIN HCL 0.4MG CAP TAKE ONE CAPSULE BY MOUTH AT BEDTIME ORAL ACTIVE 12/19/2024 [id number] [place] RY D 2023 90 [facility] IELD TAMSULOSIN HCL 0.4MG CAP TAKE ONE CAPSULE BY MOUTH ONCE DAILY TAKE 1/2 HOUR AFTER LAST MEAL OF THE DAY ORAL DISCONT INUED 01/11/2024 [id number] 4 NOEMY GARCIA DICK Arciniega 2022 30 [facility] IELD VITAMIN B COMPLEX CAP TAKE 1 CAPSULE BY MOUTH ONCE DAILY ORAL ACTIVE Oleksandr ARORA 2018 [facility] Immunizations Combined list of available immunizations from the Department of Defense and [facility] facilities. Immunization Series Date Given Administered By Site Reaction Lot Number CVX Code Drug Radiologic Technologist Mammogram Status Comments Source INFLUENZA, UNSPECIFIED FORMULATION 2023 88 complet ed HISTORICA L INFORMATI ON - FROM PATIENT'S RECALL, [facility] HEP B, ADULT 3 2022 PIERRE MONTANEZ RIGHT DELTO ID [id number] 43 complet ed [facility] HEP B, ADULT 2 2022 PIERRE MONTANEZ RIGHT DELTO ID [id number] 43 complet ed [facility] IE PNEUMOCOCCAL CONJUGATE PCV20, POLYSACCHARID E [id number] CONJUGATE, ADJUVANT, PF 2022 VINH GARNICA LEFT DELTO ID [id number] 216 complet ed [facility] HEP B, ADULT 1 2022 VINH GARNICA RIGHT DELTO ID [id number] 43 complet ed [facility] IE INFLUENZA, UNSPECIFIED FORMULATION 2021 88 complet ed HISTORICA L INFORMATI ON - SOURCE UNSPECIFI ED, [facility] TDAP 2021 115 complet ed [facility] COVID-19 (PFIZER), MRNA, LNP-S, PF, 30 MCG/0.3 ML DOSE 3 2020 208 complet ed [facility] COVID-19 (PFIZER), MRNA, LNP-S, PF, 30 MCG/0.3 ML DOSE 2 2020 208 complet ed [facility] COVID-19 (PFIZER), MRNA, LNP-S, PF, 30 MCG/0.3 ML DOSE 1 2020 208 complet ed [facility] INFLUENZA, INJECTABLE, QUADRIVALENT, PRESERVATIVE FREE 2019 150 complet ed [place] INFLUENZA, INJECTABLE, QUADRIVALENT, PRESERVATIVE FREE 2018 150 complet ed Site: Left Deltoid, Site: Right Deltoid [place] INFLUENZA, SEASONAL, INJECTABLE 2017 141 complet ed [facility] INFLUENZA, SEASONAL, INJECTABLE 2017 141 complet ed Site: Right Deltoid [place] INFLUENZA, SEASONAL, INJECTABLE 2016 141 complet ed [facility] ZOSTER LIVE 2012 MALLORY PIERCE 121 complet ed [place] FLU,3 YRS (HISTORICAL) 2011 88 complet ed Site: Right Deltoid [place] PNEUMOCOCCAL, UNSPECIFIED FORMULATION 2010 109 complet ed [place] FLU,3 YRS (HISTORICAL) 2010 88 complet ed [facility] DTAP, UNSPECIFIED FORMULATION 2009 107 complet ed [facility] FLU,3 YRS (HISTORICAL) 2009 88 complet ed [facility] TD(ADULT) UNSPECIFIED FORMULATION 2009 139 complet ed [facility] [place] [facility] Results Combined list of recent chemistry, hematology and other laboratory results from Department of Defense and Veterans Affairs, ranging from 15 months to all on record, depending upon the facility. Order Name Results Value Reference Range Date Interpretation Specimen Comments Source BASIC METABOLIC PANEL (fasting) UREA NITROGEN [MASS/VOLUM E] IN SERUM OR PLASMA 13 mg/dL 7 - 25 06/21 Specimen Type: SERUM No comment entered. Ordering Provider: DESTINY HAMILTON Report Released Date/Time: Dec 28, 2023 07:13 AM Reporting Lab: [facility] [address] [address] Performing Lab: [facility] [place] [facility] [address] [address] [facility] BASIC METABOLIC PANEL (fasting) GLUCOSE [MASS/VOLUM E] IN SERUM OR PLASMA 98 mg/dL 65 - 100 06/21 Specimen Type: SERUM No comment entered. Ordering Provider: DESTINY HAMILTON Report Released Date/Time: Dec 28, 2023 07:13 AM Reporting Lab: [facility] [place] [facility] [address] [address] Performing Lab: [facility] [address] [address] [facility] BASIC METABOLIC PANEL (fasting) SODIUM [MOLES/VOLU ME] IN SERUM OR PLASMA 139 mmol/L 135 - 145 06/21 Specimen Type: SERUM No comment entered. Ordering Provider: DESTINY HAMILTON Report Released Date/Time: Dec 28, 2023 07:13 AM Reporting Lab: [facility] [place] [facility] [address] [address] Performing Lab: [facility] [place] [facility] [address] [address] [facility] BASIC METABOLIC PANEL (fasting) POTASSIUM [MOLES/VOLU ME] IN SERUM OR PLASMA 5.0 mmol/L 3.5 - 5.0 06/21 Specimen Type: SERUM No comment entered. Ordering Provider: DESTINY HAMILTON Report Released Date/Time: Dec 28, 2023 07:13 AM Reporting Lab: [facility] [place] [facility] [address] [address] Performing Lab: [facility] [place] [address] [address] [facility] BASIC METABOLIC PANEL (fasting) CHLORIDE [MOLES/VOLU ME] IN SERUM OR PLASMA 104 mmol/L 100 - 110 06/21 Specimen Type: SERUM No comment entered. Ordering Provider: DESTINY HAMILTON Report Released Date/Time: Dec 28, 2023 07:13 AM Reporting Lab: [facility] [place] [facility] [address] [address] Performing Lab: [facility] [place] [facility] [address] [address] [facility] [facility] BASIC METABOLIC PANEL (fasting) CARBON DIOXIDE, TOTAL [MOLES/VOLU ME] IN SERUM OR PLASMA 27 meq/L 20 - 30 06/21 Specimen Type: SERUM No comment entered. Ordering Provider: DESTINY HAMILTON Report Released Date/Time: Dec 28, 2023 07:13 AM Reporting Lab: [facility] [place] [facility] [address] [address] Performing Lab: [facility] [place] [address] [address] [facility] BASIC METABOLIC PANEL (fasting) CALCIUM [MASS/VOLUM E] IN SERUM OR PLASMA 8.3 mg/dL 8.5 - 10.2 06/21 L Specimen Type: SERUM No comment entered. Ordering Provider: DESTINY HAMILTON Report Released Date/Time: Dec 28, 2023 07:13 AM Reporting Lab: [facility] [place] [facility] [address] [address] Performing Lab: [facility] [place] [facility] [address] [address] [facility] BASIC METABOLIC PANEL (fasting) CREATININE [MASS/VOLUM E] IN SERUM OR PLASMA 1.25 mg/dL 0.50 - 1.40 06/21 Specimen Type: SERUM No comment entered. Ordering Provider: DESTINY HAMILTON Report Released Date/Time: Dec 28, 2023 07:13 AM Reporting Lab: [facility] [place] [facility] [address] [address] Performing Lab: [facility] [place] [facility] [address] [address] [facility] [place] [facility] BASIC METABOLIC PANEL (fasting) GLOMERULAR FILTRATION RATE/1.73 SQ M.PREDICTED [VOLUME RATE/AREA] IN SERUM, PLASMA OR BLOOD BY CREATININE- BASED FORMULA (CKD-EPI 2020) 62 mL/min 60 06/21 Specimen Type: SERUM No comment entered. Ordering Provider: DESTNIY HAMILTON Report Released Date/Time: Dec 28, 2023 07:13 AM Reporting Lab: [facility] [place] [address] [address] Performing Lab: [facility] [place] [address] [address] [facility] [place] [facility] CBC AND DIFF (AUTO) LEUKOCYTES [#/VOLUME] IN BLOOD BY AUTOMATED COUNT 8.20 10*3/u L 4.50 - 11.00 06/21 Specimen Type: BLOOD No comment entered. Ordering Provider: DESTINY HAMILTON Report Released Date/Time: Dec 28, 2023 07:13 AM Reporting Lab: [facility] [place] [address] [address] Performing Lab: [facility] [place] [address] [address] [facility] [place] [facility] CBC AND DIFF (AUTO) ERYTHROCYTE S [#/VOLUME] IN BLOOD BY AUTOMATED COUNT 5.10 10*6/u L 4.23 - 5.66 06/21 Specimen Type: BLOOD No comment entered. Ordering Provider: DESTINY HAMILTON Report Released Date/Time: Dec 28, 2023 07:13 AM Reporting Lab: [facility] [place] [address] [address] Performing Lab: [facility] [place] [address] [address] [facility] [place] [facility] CBC AND DIFF (AUTO) HEMOGLOBIN [MASS/VOLUM E] IN BLOOD 13.3 g/dL 12.8 - 17 06/21 Specimen Type: BLOOD No comment entered. Ordering Provider: DESTINY HAMILTON Report Released Date/Time: Dec 28, 2023 07:13 AM Reporting Lab: [facility] [place] [address] [address] Performing Lab: [facility] [place] [facility] [address] [address] [facility] [place] [facility] CBC AND DIFF (AUTO) HEMATOCRIT [VOLUME FRACTION] OF BLOOD BY AUTOMATED COUNT 42.6 39.2 - 50.4 06/21 Specimen Type: BLOOD No comment entered. Ordering Provider: DESTINY HAMILTON Report Released Date/Time: Dec 28, 2023 07:13 AM Reporting Lab: [facility] [place] [facility] [address] [address] Performing Lab: [facility] [place] [facility] [address] [address] [facility] [place] [facility] CBC AND DIFF (AUTO) MCV [ENTITIC VOLUME] BY AUTOMATED COUNT 83.5 fL 82 - 99 06/21 Specimen Type: BLOOD No comment entered. Ordering Provider: DESTINY HAMILTON Report Released Date/Time: Dec 28, 2023 07:13 AM Reporting Lab: [facility] [place] [facility] [address] [phone] Performing Lab: [facility] [place] [facility] [address] [phone] [facility] [place] [facility] CBC AND DIFF (AUTO) MCHC [MASS/VOLUM E] BY AUTOMATED COUNT 31.2 g/dL 30.8 - 35.1 06/21 Specimen Type: BLOOD No comment entered. Ordering Provider: DESTINY HAMILTON Report Released Date/Time: Dec 28, 2023 07:13 AM Reporting Lab: [facility] [place] [facility] [address] [phone] Performing Lab: [facility] [place] [facility] [address] [phone] [facility] [place] [facility] CBC AND DIFF (AUTO) PLATELETS [#/VOLUME] IN BLOOD BY AUTOMATED COUNT 256 10*3/u L 140 - 360 06/21 Specimen Type: BLOOD No comment entered. Ordering Provider: DESTINY HAMILTON Report Released Date/Time: Dec 28, 2023 07:13 AM Reporting Lab: [facility] [place] [facility] [address] [phone] Performing Lab: [facility] [place] [facility] [address] [address] [facility] CBC AND DIFF (AUTO) ERYTHROCYTE DISTRIBUTIO N WIDTH [RATIO] BY AUTOMATED COUNT 14.9 12.0 - 16.0 06/21 Specimen Type: BLOOD No comment entered. Ordering Provider: DESTINY HAMILTON Report Released Date/Time: Dec 28, 2023 07:13 AM Reporting Lab: [facility] [place] [facility] [address] [address] Performing Lab: [facility] [place] [facility] [address] [address] [facility] CBC AND DIFF (AUTO) MONOCYTES [#/VOLUME] IN BLOOD BY AUTOMATED COUNT 0.59 10*3/u L 0.30 - 1.10 06/21 Specimen Type: BLOOD No comment entered. Ordering Provider: DESTINY HAMILTON Report Released Date/Time: Dec 28, 2023 07:13 AM Reporting Lab: [facility] [place] [facility] [address] [address] Performing Lab: [facility] [place] [facility] [address] [address] [facility] [place] [facility] CBC AND DIFF (AUTO) MCH [ENTITIC MASS] BY AUTOMATED COUNT 26.1 pg 26.2 - 32.6 06/21 L Specimen Type: BLOOD No comment entered. Ordering Provider: DESTINY HAMILTON Report Released Date/Time: Dec 28, 2023 07:13 AM Reporting Lab: [facility] [place] [facility] [address] [address] Performing Lab: [facility] [place] [facility] [address] [address] [facility] [place] [facility] CBC AND DIFF (AUTO) NEUTROPHILS /100 LEUKOCYTES IN BLOOD BY AUTOMATED COUNT 71.4 43.7 - 75.8 06/21 Specimen Type: BLOOD No comment entered. Ordering Provider: DESTINY HAMILTON Report Released Date/Time: Dec 28, 2023 07:13 AM Reporting Lab: [facility] [address] [address] Performing Lab: [facility] [address] [address] [facility] CBC AND DIFF (AUTO) LYMPHOCYTES /100 LEUKOCYTES IN BLOOD BY AUTOMATED COUNT 17.1 14.0 - 42.3 06/21 Specimen Type: BLOOD No comment entered. Ordering Provider: DESTINY HAMILTON Report Released Date/Time: Dec 28, 2023 07:13 AM Reporting Lab: [facility] [address] [address] Performing Lab: [facility] [address] [address] [facility] CBC AND DIFF (AUTO) MONOCYTES/1 00 LEUKOCYTES IN BLOOD BY AUTOMATED COUNT 7.2 5.1 - 13.7 06/21 Specimen Type: BLOOD No comment entered. Ordering Provider: DESTINY HAMILTON Report Released Date/Time: Dec 28, 2023 07:13 AM Reporting Lab: [facility] [address] [address] Performing Lab: [facility] [address] [address] [facility] CBC AND DIFF (AUTO) EOSINOPHILS /100 LEUKOCYTES IN BLOOD BY AUTOMATED COUNT 3.5 0.4 - 6.8 06/21 Specimen Type: BLOOD No comment entered. Ordering Provider: DESTINY HAMILTON Report Released Date/Time: Dec 28, 2023 07:13 AM Reporting Lab: [facility] [address] [address] Performing Lab: [facility] [address] [address] [facility] CBC AND DIFF (AUTO) BASOPHILS/1 00 LEUKOCYTES IN BLOOD BY AUTOMATED COUNT 0.6 0.1 - 2.0 06/21 Specimen Type: BLOOD No comment entered. Ordering Provider: DESTINY HAMILTON Report Released Date/Time: Dec 28, 2023 07:13 AM Reporting Lab: [facility] [address] [address] Performing Lab: [facility] [address] [address] [facility] CBC AND DIFF (AUTO) NEUTROPHILS [#/VOLUME] IN BLOOD BY AUTOMATED COUNT 5.85 10*3/u L 2.20 - 7.60 06/21 Specimen Type: BLOOD No comment entered. Ordering Provider: DESTINY HAMILTON Report Released Date/Time: Dec 28, 2023 07:13 AM Reporting Lab: [facility] [address] [address] Performing Lab: [facility] [address] [address] [facility] CBC AND DIFF (AUTO) LYMPHOCYTES [#/VOLUME] IN BLOOD BY AUTOMATED COUNT 1.40 10*3/u L 1.00 - 3.20 06/21 Specimen Type: BLOOD No comment entered. Ordering Provider: DESTINY HAMILTON Report Released Date/Time: Dec 28, 2023 07:13 AM Reporting Lab: [facility] [address] [address] Performing Lab: [facility] [address] [address] [facility] CBC AND DIFF (AUTO) EOSINOPHILS [#/VOLUME] IN BLOOD BY AUTOMATED COUNT 0.29 10*3/u L 0.03 - 0.44 06/21 Specimen Type: BLOOD No comment entered. Ordering Provider: DESTINY HAMILTON Report Released Date/Time: Dec 28, 2023 07:13 AM Reporting Lab: [facility] [address] [address] Performing Lab: [facility] [address] [address] [facility] CBC AND DIFF (AUTO) BASOPHILS [#/VOLUME] IN BLOOD BY AUTOMATED COUNT 0.05 10*3/u L 0.01 - 0.13 06/21 Specimen Type: BLOOD No comment entered. Ordering Provider: DESTINY HAMILTON Report Released Date/Time: Dec 28, 2023 07:13 AM Reporting Lab: [facility] [place] [facility] [address] [address] Performing Lab: [facility] [place] [facility] [address] [address] [facility] [place] [facility] CBC AND DIFF (AUTO) IMMATURE GRANULOCYTE S/100 LEUKOCYTES IN BLOOD BY AUTOMATED COUNT 0.2 0.0 - 0.7 06/21 Specimen Type: BLOOD No comment entered. Ordering Provider: DESTINY HAMILTON Report Released Date/Time: Dec 28, 2023 07:13 AM Reporting Lab: [facility] [place] [address] Performing Lab: [facility] [place] [address] [address] [facility] [place] [facility] CBC AND DIFF (AUTO) IMMATURE GRANULOCYTE S [#/VOLUME] IN BLOOD BY AUTOMATED COUNT 0.02 10*3/u L 0.00 - 0.06 06/21 Specimen Type: BLOOD No comment entered. Ordering Provider: DESTINY HAMILTON Report Released Date/Time: Dec 28, 2023 07:13 AM Reporting Lab: [facility] [place] [facility] [address] [address] Performing Lab: [facility] [place] [address] [address] [facility] CBC AND DIFF (AUTO) NUCLEATED ERYTHROCYTE S/100 LEUKOCYTES [RATIO] IN BLOOD BY AUTOMATED COUNT 0.0 0.0 - 0.0 06/21 Specimen Type: BLOOD No comment entered. Ordering Provider: DESTINY HAMILTON Report Released Date/Time: Dec 28, 2023 07:13 AM Reporting Lab: [facility] [place] [address] [address] Performing Lab: [facility] [place] [facility] [address] [address] [facility] CBC AND DIFF (AUTO) NUCLEATED ERYTHROCYTE S [#/VOLUME] IN BLOOD BY AUTOMATED COUNT 0.00 10*3/u L 0.00 - 0.00 06/21 Specimen Type: BLOOD No comment entered. Ordering Provider: DESTINY HAMILTON Report Released Date/Time: Dec 28, 2023 07:13 AM Reporting Lab: [facility] [place] [facility] [address] [address] Performing Lab: [facility] [address] [address] [facility] HEMOGLOBI N A1C PANEL HEMOGLOBIN A1C/HEMOGLO BIN.TOTAL IN BLOOD BY HPLC 5.2 4.0 - 5.6 06/21 Specimen Type: BLOOD Comment: Values obtained from A1C measurement s can vary. For atypical A1C assays, a reported value of 7.0 could actually be between 6.72 and 7.28 if measured by a reference method. A reported value of 9.0 could actually be between 8.73 and 9.27. Ref: http://www. ngsp.org/[place] Pdata.asp Ordering Provider: DESTINY HAMILTON Report Released Date/Time: Dec 28, 2023 07:13 AM Reporting Lab: [facility]ENTERUSE[address] [address] Performing Lab: [facility]USE[facility] [address] [address] [facility] LIPID PANEL FASTING CHOLESTEROL [MASS/VOLUM E] IN SERUM OR PLASMA 146 mg/dL 06/21 Specimen Type: SERUM No comment entered. Ordering Provider: DESTINY HAMILTON Report Released Date/Time: Dec 28, 2023 07:13 AM Reporting Lab: [facility]USE[facility] [address] [address] Performing Lab: [facility]ENTERUSE[address] [address] [facility] [place] [facility] LIPID PANEL FASTING TRIGLYCERID E [MASS/VOLUM E] IN SERUM OR PLASMA 81 mg/dL 0 - 150 06/21 Specimen Type: SERUM No comment entered. Ordering Provider: DESTINY HAMILTON Report Released Date/Time: Dec 28, 2023 07:13 AM Reporting Lab: [facility] [place] [facility] [address] [address] Performing Lab: [facility] [place] [facility] [address] [address] [facility] [place] [facility] LIPID PANEL FASTING CHOLESTEROL IN LDL [MASS/VOLUM E] IN SERUM OR PLASMA BY CALCULATION 89 mg/dL 0 - 129 06/21 Specimen Type: SERUM No comment entered. Ordering Provider: DESTINY HAMILTON Report Released Date/Time: Dec 28, 2023 07:13 AM Reporting Lab: [facility] [place] [address] [address] Performing Lab: [facility] [place] [facility] [address] [address] [facility] [place] [facility] LIPID PANEL FASTING CHOLESTEROL .TOTAL/CHOL ESTEROL IN HDL [MASS RATIO] IN SERUM OR PLASMA 3.6 06/21 Specimen Type: SERUM No comment entered. Ordering Provider: DESTINY HAMILTON Report Released Date/Time: Dec 28, 2023 07:13 AM Reporting Lab: [facility] [place] [facility] [address] [address] Performing Lab: [facility] [place] [facility] [address] [address] [facility] [place] [facility] LIPID PANEL FASTING CHOLESTEROL IN HDL [MASS/VOLUM E] IN SERUM OR PLASMA 41 mg/dL 40 - 60 06/21 Specimen Type: SERUM No comment entered. Ordering Provider: DESTINY HAMILTON Report Released Date/Time: Dec 28, 2023 07:13 AM Reporting Lab: [facility] [place] [facility] [address] [address] Performing Lab: [facility] [place] [address] [place] [address] [facility] [place] [facility] LIVER FUNCTION PROTEIN [MASS/VOLUM E] IN SERUM OR PLASMA 6.3 g/dL 6.0 - 8.3 06/21 Specimen Type: SERUM No comment entered. Ordering Provider: DESTINY HAMILTON Report Released Date/Time: Dec 28, 2023 07:13 AM Reporting Lab: [facility] [place] [facility] [address] [address] Performing Lab: [facility] [place] [facility] [address] [address] [facility] [place] [facility] LIVER FUNCTION ALBUMIN [MASS/VOLUM E] IN SERUM OR PLASMA 3.4 g/dL 3.5 - 5.0 06/21 L Specimen Type: SERUM No comment entered. Ordering Provider: DESTINY HAMILTON Report Released Date/Time: Dec 28, 2023 07:13 AM Reporting Lab: [facility] [place] [facility] [address] [address] Performing Lab: [facility] [place] [facility] [address] [address] [facility] [place] [facility] LIVER FUNCTION ALKALINE PHOSPHATASE [ENZYMATIC ACTIVITY/VO LUME] IN SERUM OR PLASMA 107 U/L 40 - 150 06/21 Specimen Type: SERUM No comment entered. Ordering Provider: DESTINY HAMILTON Report Released Date/Time: Dec 28, 2023 07:13 AM Reporting Lab: [facility] [place] [facility] [address] [address] Performing Lab: [facility] [place] [facility] [address] [address] [facility] [place] [facility] LIVER FUNCTION ASPARTATE AMINOTRANSF ERASE [ENZYMATIC ACTIVITY/VO LUME] IN SERUM OR PLASMA 16 U/L 5 - 34 06/21 Specimen Type: SERUM No comment entered. Ordering Provider: DESTINY HAMILTON Report Released Date/Time: Dec 28, 2023 07:13 AM Reporting Lab: [facility] [place] [facility] [address] [address] Performing Lab: [facility] [place] [facility] [address] [address] [facility] [place] [facility] LIVER FUNCTION ALANINE AMINOTRANSF ERASE [ENZYMATIC ACTIVITY/VO LUME] IN SERUM OR PLASMA 15 U/L 06/21 Specimen Type: SERUM No comment entered. Ordering Provider: DESTINY HAMILTON Report Released Date/Time: Dec 28, 2023 07:13 AM Reporting Lab: [facility] [place] [facility] [address] [address] Performing Lab: [facility] [place] [facility] [address] [address] [facility] [place] [facility] LIVER FUNCTION BILIRUBIN.T OTAL [MASS/VOLUM E] IN SERUM OR PLASMA 0.3 mg/dL 0.2 - 1.2 06/21 Specimen Type: SERUM No comment entered. Ordering Provider: DESTINY HAMILTON Report Released Date/Time: Dec 28, 2023 07:13 AM Reporting Lab: [facility] [place] [facility] [address] [address] Performing Lab: [facility] [place] [facility] [address] [address] [facility] [place] [facility] PSA PROSTATE SPECIFIC AG [MASS/VOLUM E] IN SERUM OR PLASMA 3.43 ng/mL 0.00 - 4.00 06/21 Specimen Type: SERUM No comment entered. Ordering Provider: DESTINY HAMILTON Report Released Date/Time: Dec 28, 2023 08:57 AM Reporting Lab: [facility] [place] [facility] [address] [address] Performing Lab: [facility] [place] [address] [address] [facility] [place] [facility] TSH THYROTROPIN [UNITS/VOLU ME] IN SERUM OR PLASMA 5.89 u[IU]/ mL 0.35 - 5.00 06/21 H Specimen Type: SERUM No comment entered. Ordering Provider: DESTINY HAMLITON Report Released Date/Time: Dec 28, 2023 07:13 AM Reporting Lab: [facility] [address] [address] Performing Lab: [facility]TRN [facility]ENTERUS[facility] [address] [address] [facility] VITAMIN D (25-OH) 25-HYDROXYV ITAMIN D3 [MASS/VOLUM E] IN SERUM OR PLASMA <13ng/ mL 20 - 50 06/21 L Specimen Type: SERUM No comment entered. Ordering Provider: DESTINY HAMILTON Report Released Date/Time: Dec 28, 2023 07:13 AM Reporting Lab: [facility]ENTERUSE[facility] [address] [address] Performing Lab: [facility] CENTERUSE[address] [address] [facility] HEMOGLOBI N A1C PANEL HEMOGLOBIN A1C/HEMOGLO BIN.TOTAL IN BLOOD BY HPLC 5.6 4.0 - 5.6 12/25 Specimen Type: BLOOD Comment: Values obtained from A1C measurement s can vary. For atypical A1C assays, a reported value of 7.0 could actually be between 6.72 and 7.28 if measured by a reference method. A reported value of 9.0 could actually be between 8.73 and 9.27. Ref: http://www. ngsp.org/[place] Pdata.asp Ordering Provider: DESTINY HAMILTON Report Released Date/Time: Jun 29, 2023 09:03 AM Reporting Lab: [facility]USE[facility] [address] [address] Performing Lab: [facility]ENTERUSE[facility] [address] [address] [facility] LIPID PANEL FASTING CHOLESTEROL [MASS/VOLUM E] IN SERUM OR PLASMA 121 mg/dL 12/25 Specimen Type: SERUM No comment entered. Ordering Provider: DESTINY HAMILTON Report Released Date/Time: Jun 29, 2023 09:03 AM Reporting Lab: [facility]ENTERUSE[address] [address] Performing Lab: [facility] [place] [facility] [address] [address] [facility] [place] [facility] LIPID PANEL FASTING TRIGLYCERID E [MASS/VOLUM E] IN SERUM OR PLASMA 124 mg/dL 0 - 150 12/25 Specimen Type: SERUM No comment entered. Ordering Provider: DESTINY HAMILTON Report Released Date/Time: Jun 29, 2023 09:03 AM Reporting Lab: [facility] [place] [facility] [address] [address] Performing Lab: [facility] [place] [facility] [address] [address] [facility] [place] [facility] LIPID PANEL FASTING CHOLESTEROL IN LDL [MASS/VOLUM E] IN SERUM OR PLASMA BY CALCULATION 67 mg/dL 0 - 129 12/25 Specimen Type: SERUM No comment entered. Ordering Provider: DESTINY HAMILTON Report Released Date/Time: Jun 29, 2023 09:03 AM Reporting Lab: [facility] [place] [facility] [address] [address] Performing Lab: [facility] [place] [facility] [address] [address] [facility] LIPID PANEL FASTING CHOLESTEROL .TOTAL/CHOL ESTEROL IN HDL [MASS RATIO] IN SERUM OR PLASMA 4.2 12/25 Specimen Type: SERUM No comment entered. Ordering Provider: DESTINY HAMILTON Report Released Date/Time: Jun 29, 2023 09:03 AM Reporting Lab: [facility] [place] [facility] [address] [address] Performing Lab: [facility] [place] [facility] [address] [address] [facility] [place] [facility] LIPID PANEL FASTING CHOLESTEROL IN HDL [MASS/VOLUM E] IN SERUM OR PLASMA 29 mg/dL 40 - 60 12/25 L Specimen Type: SERUM No comment entered. Ordering Provider: DESTINY HAMILTON Report Released Date/Time: Jun 29, 2023 09:03 AM Reporting Lab: [facility] [place] [facility] [address] [address] Performing Lab: [facility] [address] [address] [facility] Vital Signs Combined list of inpatient and outpatient Vital Signs from Department of Defense and Veterans Affairs, ranging from 12 months to all on record, depending upon the facility. Vital Sign Value Date Comments Source SYSTOLIC BLOOD PRESSURE 118 06/26/19 25 11:29:23 [facility] DIASTOLIC BLOOD PRESSURE 72 025 11:29:23 [facility] PULSE OXIMETRY 94 06/26/2024 11:29:23 [facility] WEIGHT 177.2 06/26/2024 11:29:23 [facility] BMI 26 kg/m2 06/26/2024 11:29:23 [facility] PULSE 70 06/26/2024 11:29:23 [facility] SYSTOLIC BLOOD PRESSURE 118 12/28/19 24 11:46:08 [facility] DIASTOLIC BLOOD PRESSURE 70 024 11:46:08 [facility] PULSE OXIMETRY 95 12/28/2023 11:46:08 [facility] WEIGHT 184.6 12/28/2023 11:46:08 [facility] BMI 27 kg/m2 12/28/2023 11:46:08 [facility] PAIN 0 12/28/2023 11:46:08 [facility] HEIGHT 69 12/28/2023 11:46:08 [facility] TEMPERATURE 97.4 12/28/2023 11:46:08 [facility] PULSE 73 12/28/2023 11:46:08 [facility] RESPIRATION 18 12/28/2023 11:46:08 [facility] Encounters Combined list of: 1) Encounters from Department of Veterans Affairs facilities going backup to the last 18 months, not all VA inpatient encounters are included; 2) Encounters from the Department of Defense facilities going backup to 280 months. Location Location Details Encounter Type Encounter Number Reason For Visit Attending Provider ADM Date DC Date Status Disposition Source [facility] Encounter [id number] 03/17 [facility] [id number] 03/28 [facility]counter [id number] 04/06 [facility] [id number] 04/06 [facility]counter [id number] 04/10 [facility]counter [id number] 04/13 [facility]counter [id number] ABDOUL HAMILTON 04/24 [facility] En[facility] [id number] 05/04 [facility] En[facility] [id number] 05/26 [facility] Encounter [id number] TARIKOBEY ZACH CALVERT 05/29 [facility] En[facility] [id number] 06/06 [facility] En[facility] [id number] 06/08 [facility] En[facility] [id number] 06/09 [facility] [id number] 06/16 [facility] [id number] 06/20 [facility] En[facility] [id number] SWATHI DEL CASTILLO MD 06/20 [facility] OFF/OP EST MAY X REQ PHY/QHP [id number] Diagnos is: ICD-10- CM 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 SWATHI DEL CASTILLO MD 06/20 [facility] Out[facility] Encounter [id number] 06/23 [facility] Out[facility] Encounter [id number] 06/27 [facility] [place] [facility] O/P EST MOD 30 MIN [id number] Diagnos is: ICD-10- CM I10 Essenti al (primar y) hyperte nsion ABDOUL HAMILTON [place] [facility] Out[facility] Encounter [id number] [facility] OFF/OP EST MAY X REQ PHY/QHP [id number] Diagnos is: ICD-10- CM I10 Essenti al (primar y) hyperte nsion DARWINFAROOQ OLAS 07/11 [place] [facility] Out[facility] Encounter [id number] 07/16 [facility] Encounter [id number] 07/16 [facility] Out[facility]counter [id number] 07/17 [facility] Out[facility]counter [id number] 07/23 [facility] Out[facility] Encounter [id number] 08/07 [facility]counter [id number] 08/07 [facility] Out[facility] Encounter [id number] 08/09 [facility] Out[facility] Encounter [id number] Diagnos is: ICD-10- CM Z02.89 Encount er for other adminis trative examina CORBIN Griffiths 08/20 [facility] COMPRE OPH EXAM NEW PT 1/ [id number] Diagnos is: ICD-10- CM H25.813 Combine d forms of age-rel ated catarac t, bilater al MERHAR,LOI H B 08/28 [facility] FIT SPECTACLES BIFOCAL [id number] Diagnos is: ICD-10- CM Z46.0 Encount er for fit/adj st of spectac les and contact lenses MERHAR,LOI H B 08/28 [facility] Out[facility] Encounter [id number] FAROOQ GRANADOS 08/30 [facility] Out[facility] Encounter [id number] 09/03 [facility] HEARING AID EXAM BOTH EARS [id number] Diagnos is: ICD-10- CM H90.3 Sensori neural hearing loss, bilater al Jerica YAO 09/10 [facility] Encounter [id number] 09/12 [facility] Out[facility] Encounter [id number] 09/17 [facility] Outpatient Encounter [id number] 09/21 [facility] Out[facility] Encounter [id number] 09/21 [facility] Out[facility] Encounter [id number] 10/09 [facility] Out[facility] Encounter [id number] 10/15 [facility] CONFORMITY EVALUATION [id number] Diagnos is: ICD-10- CM Z46.1 Encount er for fitting and adjustm ent of hearing aid Jerica YAO 10/15 [facility] Out[facility] Encounter [id number] 10/16 [facility] Out[facility] Encounter [id number] 10/23 [facility] Out[facility] Encounter [id number] 10/31 [facility] Out[facility] Encounter [id number] 11/05 [facility] Out[facility] Encounter [id number] 11/19 [facility] Out[facility] Encounter [id number] 11/19 [facility] Out[facility] Encounter [id number] [facility] Out[facility] Encounter [id number] [facility] Out[facility] Encounter [id number] 1.12/21 [facility] Out[facility] Encounter [id number] 1.12/22 [facility] OFFICE O/P EST MOD 30 MIN [id number] Diagnos is: ICD-10- CM I10 Essenti al (primar y) hyperte nsion ABDOUL HAMILTON 12/27 [facility] Out[facility] Encounter [id number] 01/07 [facility] Out[facility] Encounter [id number] [facility] Out[facility] Encounter [id number] [facility] Out[facility]counter [id number] 01/11 [facility] Out[facility] Encounter [id number] 01/14 [facility] Out[facility] Encounter [id number] 01/25 [facility] Out[facility] Encounter [id number] 01/28 [facility] Out[facility] Encounter [id number] 01/29 [facility] Out[facility] Encounter [id number] 01/29 [facility] Out[facility] Encounter [id number] 02/14 [facility] Out[facility] Encounter [id number] 02/15 [facility] Out[facility] Encounter [id number] 02/18 [facility] Out[facility] Encounter [id number] 02/18 [facility] Out[facility]counter [id number] 1.02/21 [facility] Out[facility] Encounter [id number] 03/12 [facility] Out[facility] Encounter [id number] 1.03/12 [facility] Out[facility]counter [id number] 03/13 [facility] Out[facility] Encounter [id number] 03/21 [facility] Encounter [id number] 1.03/25 [facility] Out[facility]counter [id number] 1. FAROOQ GRANADOS OLAS 03/25 [facility] Out[facility] Encounter [id number] FAROOQ GRANADOS OLAS 04/19 [facility] Out[facility] Encounter [id number] [facility] Out[facility] Encounter [id number] FAROOQ GRANADOS OLAS 04/19 [facility] Out[facility] Encounter [id number] 04/26 [facility] Out[facility] Encounter [id number] 04/29 [facility] Out[facility] Encounter [id number] 05/14 [facility] Out[facility] Encounter [id number] 05/16 [facility] Out[facility] Encounter [id number] FAROOQ GRANADOS 05/16 [facility] Out[facility] Encounter [id number] 06/06 [facility] Outpatient Encounter [id number] 06/20 [facility] OFFICE O/P EST MOD 30 MIN [id number] Diagnos is: ICD-10- CM I10 Essenti al (primar y) hyperte ABDOUL Lindsay 06/26 [place] [facility] Out[facility] Encounter [id number] FAROOQ GRANADOS 06/28 [facility] Out[facility] Encounter [id number] FAROOQ GRANADOS 07/03 [facility] Out[facility] Encounter [id number] 07/03 [facility] Out[facility] Encounter [id number] FAROOQ GRANADOS 07/16 [facility] Out[facility] Encounter [id number] 07/18 [facility] Out[facility] Encounter [id number] FAROOQ GRANADOS 08/01 [facility] Out[facility] Encounter [id number] 08/09 [facility] Out[facility] Encounter [id number] LENNOXMARYANNFAROOQ LANDAVERDE 08/09 [facility] Out[facility] Encounter [id number] 08/09 [facility] Outpatient Encounter [id number] 08/09 [facility] Out[facility] Encounter [id number] Raysa DIAZ 08/27 [facility] Outpatient Encounter [id number] 08/27 [facility] Social History Combined list of available smoking, tobacco, and other social history from Department of Defense and Veterans Affairs facilities. Social History Type Response Date Comment [facility] e Tobacco smoking status RIIS VA-TOBACCO NEVER USED OTHER TYPE 06/26/2024 [place] History of tobacco use VA-TOBACCO USE FORMER CIGARETTES 06/26/2024 [place] History of tobacco use VA-TOBACCO FORMER USER 06/29/2023 [facility] History of tobacco use VA-TOBACCO FORMER USER 05/09/2022 [facility] History of tobacco use VA-TOBACCO NEVER USED 05/10/2021 [facility] D History of tobacco use VA-TOBACCO FORMER USER 01/22/2020 [facility] History of tobacco use MA-TOBACCO QUIT 15 YRS OR MORE 12/12/2018 [place] History of tobacco use QUIT TOBACCO USE > 7 YEARS AGO 10/09/2017 [place] History of tobacco use QUIT TOBACCO USE > 7 YEARS AGO 08/10/2016 Quit 20 years ago [place] History of tobacco use QUIT TOBACCO USE > 7 YEARS AGO 06/01/2015 15 years ago [place] History of tobacco use QUIT TOBACCO USE > 7 YEARS AGO 10/29/2010 quit 10 yrs ago [place] Plan of Care List of future care activities from Department of Veterans Affairs facilities. Additional future care activities may be listed in the Assessment and Plan section. Date/Time Care Activity Care Activity Detail Facili ty 10/22/2024 AMBULATORY - MEDICINE AMBULATORY - MEDICI [facility]
--- OUTSIDE RECORDS SUMMARY | 2024-09-12 14:23 | XMS_ITS | Data Portability ---
Author Organization [facility] [employer] [facility], [address] Address [address] [place] [address] Assessment Encounter Date Assessment Date Assessment LastModified by Organization Details LastModified Time 05/04/2022 05/04/2022 Patient showed significant improvement after nebulizer treatments Not available 05/04/2022 10:34:39 Plan of Treatment Reminders Order Date Submit Date Provider Last Modified By Organization Details Last Modified Time Details Appointments None recorded. Lab None recorded. Referral None recorded. Procedures None recorded. Surgeries None recorded. Imaging None recorded. Medication Orders prednisone 20 mg tablet 2022 023 [id number], [address], [place], [id number], 10:33:26 azithromyci n 250 mg tablet 2022 023 [id number], [address], [place], [id number], 10:33:27 albuterol sulfate 2.5 mg/3 mL (0.083 %) solution for nebulizatio n 2022 023 Not available 10:19:59 ipratropium 0.5 mg-albutero l 3 mg (2.5 mg base)/3 mL nebulizatio n soln 2022 023 Not available 10:20:00 Patient TargetsNo targets recorded. Patient Instructions Encounter Date Encounter Id Patient Instructions Last Modified By Organization Details Last Modified Time 05/04/2022 [id number] COPD exacerbatio n plan: care instructions Not available 05/04/2022 10:33:18 shortness of breath: care instructions Not available 05/04/2022 10:33:18 You should follow-up with your PCP in 2-3 days, or at any time if your condition does not improve or worsens. Any acute change should prompt a visit to the nearest Emergency Department. Not available 05/04/2022 10:34:13 Reason for Referral None Reported. Problems Name Problem SNOMED Code Status Onset Date Resolution Date Notes Provider Name and Address Organization Details Recorded Time Moderate chronic obstructive pulmonary disease 856048030 Active 2022 ALICIA TIGIST null, [place] - [facility] 3 09:26:13 Hypertensive disorder 71651560 Active 2022 ALICIA TIGIST null, PA - [facility] 3 09:26:25 Gastroesophage al reflux disease 773812035 Active 2022 ALICIA TIGIST null, PA - [facility] 3 09:27:52 Problem Notes None recorded. Procedures Surgical History Date Name Laterality Status Provider Name and Address Organization Details Recorded Time Nebulizer Treatment completed Kaitlin Art MD [address] [place] [address] [place], [address], [place] - [facility] 05/04/2022 10:35:12 Imaging Results None recorded. Procedure Notes None recorded. Medical Equipment None Reported. Allergies No known drug allergies Medications Name Sig Start Date Stop Date Status Note LastModified by Organization Details LastModified Time prednison e 10 mg tablet 05/04 completed Not Available Not Available Not Available ipratropi um 0.5 mg-albute rol 3 mg (2.5 mg base)/3 mL nebulizat ion soln Inhale 3 mL 4 times a day by nebuliza tion route as directed for 1 day. 2022 active Not Available Not Available Not Avai lable albuterol sulfate 2.5 mg/3 mL (0.083 %) solution for nebulizat ion Inhale 3 mL every day by nebuliza tion route as directed for 1 day. 2022 active Patient tolerate d well. sc.ma. Not Available Not Available Not Available azithromy jose 250 mg tablet TAKE 2 TABLETS (500 MG) BY ORAL ROUTE ONCE DAILY FOR 1 DAY THEN 1 TABLET (250 MG) BY ORAL ROUTE ONCE DAILY FOR 4 DAYS 2022 active Not Available Not Available Not Avai lable prednison e 20 mg tablet Take 2 tablets every day by oral route for 5 days. 2022 active Not Available Not Available Not Avai lable amoxicill in 875 mg-potass ium clavulana te 125 mg tablet TAKE 1 TABLET BY MOUTH TWICE DAILY FOR 10 DAYS 05/04 completed Not Available Not Available Not Available omeprazol e active Not Available Not Available Not Available albuterol sulfate active Not Available Not Available Not Available hydrochlo rothiazid e active Not Available Not Available Not Available montel[facility] st active Not Available Not Available Not Available cetirizin e 10 mg capsule Take by oral route. active Not Available Not Available No t Available Stiolto Respimat active Not Available Not Available Not Available Wixela Inhub 250 mcg-50 mcg/dose powder for inhalatio n Inhale 1 puff twice a day by inhalati on route. active Not Available Not Available No t Available Vitals Date Recorded Body height Body mass index (BMI) Body weight Oxygen saturation Oxygen saturation in Arterial blood by Pulse oximetry Pain severity - 0-10 verbal numeric rating [Score] - Reported Heart rate Respiratory rate Body temperature Oxygen saturation Oxygen saturation in Arterial blood by Pulse oximetry Heart rate Respiratory rate Systolic blood pressure Diastolic blood pressure Provider Name and Address Organization Details Last Updated DateTime 3 177.8 cm 33 kg/m2 732563. 25 g 94 % 94 % 0 110 /min 22 /min 97.4 [degF] 97 % 97 % 102 /min 18 /min 173 mm[Hg] 126 mm[Hg] ALICIA PEREIRA - [facility] 09:29:56 Social History Question Answer Notes LastModified by Organizat ion Details LastModified Time Tobacco Smoking Status Former Smoker ALICIA ESCOTO null, PA [facility] 05/04/2022 09:28:31 Have You Recently Traveled Abroad? No Information not available 05/04/2022 Sex: Unknown Functional Status Question Answer Note LastModified by Organizat ion Details LastModified Time Do you use any illicit or recreational drugs? No Information not available 05/04/2022 Do you or have you ever used any other forms of tobacco or nicotine? No Information not available 05/04/2022 What is your level of alcohol consumption? None Information not available 05/04/2022 Are you currently employed? Yes Information not available 05/04/2022 Mental Status None recorded. Family History Relationship Description Onset Age of this Age Resolved Age Notes LastModified by Organization Details LastModified Time Father Malignant neoplastic disease Not available 2022 09:28:09 Mother Malignant neoplastic disease Not available 2022 09:28:09 Medical History No medical history recorded. Immunizations Vaccine Type Date Status Note Provider Nam e and Address Organization Details Recorded Time pneumococcal polysaccharide PPV23 1 completed ALICIA TIGIST null, [place] - [facility] 05/04/2022 10:17:14 Influenza, split virus, trivalent, preservative 0 completed ALICIA TIGIST null, [place] - [facility] 05/04/2022 10:17:14 COVID-19, mRNA, LNP-S, PF, 30 mcg/0.3 mL dose 1 completed ALICIA TIGIST null, PA - [facility] 05/04/2022 10:17:14 COVID-19, mRNA, LNP-S, bivalent, PF, 30 mcg/0.3 mL dose 2 completed ALICIA TIGIST null, PA - [facility] 05/04/2022 10:17:14 Tdap 2 completed ALICIA TIGIST null, PA - [facility] 05/04/2022 10:17:14 COVID-19, mRNA, LNP-S, PF, 30 mcg/0.3 mL dose 1 completed ALICIA TIGIST null, PA - [facility] 05/04/2022 10:17:14 COVID-19, mRNA, LNP-S, PF, 30 mcg/0.3 mL dose 1 completed ALICIA TIGIST null, PA - [facility] 05/04/2022 10:17:14 Influenza, high-dose, quadrivalent, PF 1 completed ALICIA TIGIST null, PA - [facility] 05/04/2022 10:17:14 zoster recombinant 0 completed ALICIA TIGIST null, PA - [facility] 05/04/2022 10:17:14 Td(adult) unspecified formulation 3 completed ALICIA TIGIST null, PA - [facility] 05/04/2022 10:17:14 Past Encounters Encounter ID Performer Location Encounter Start Date Encounter Closed Date Diagnosis/Indication Diagnosis SNOMED-CT Code Diagnosis ICD10 Code Diagnosis Note [id number] [address] [facility] [address] [place] [address] 01/14/2022 12:42:56 01/14/2022 14:12:45 [id number] Kaitlin Art MD [address] [place] [address] 05/04/2022 09:22:57 05/04/2022 10:54:56 Dyspnea 942868057 R06.00 Acute exac erbation of chronic obstructive pulmonary disease 778890158 J44.1 Health Concerns Section Related Observation LastModified by Organization Detai ls LastModified Time None Recorded Concern Status LastModified by Organization Details LastModified Time None Recorded Advance Directives Directive None Recorded Payers Insurance Date Sequence Insurance Name Policy Number Policy Rodriguez Covered Member ID Rodriguez Member ID Guarantor Name 07/20/2022 [facility] Avinash Leiva [id number] Avinash Leiva 05/04/2022 [facility] Avinash Leiva SELF SELF Avinash Leiva Notes Date Note Type Note Provider Name and Address Organization Details Recorded Time 05/04/2022 text/html Shortness of BreathReported bypatient.Timing3 days;worse at night Additional symptomsno anxiety; no nausea; no fatigue; no cough; no dizziness CHronic COPD Kaitlin Art MD [address], [place], [address], [place] - [facility] 05/04/2022 10:36:00
--- OUTSIDE RECORDS SUMMARY | 2024-09-12 14:23 | XMS_ITS | Encounter Summary ---
Author Name [facility] [place] Organization [facility] [place] Address [address] [place] [id number] Care Team Providers Care Clinical Staff Rn Name Role Phone DESTINY HAMILTON Primary Care [...] to Policy Rodriguez [employer] DENT[employer]URANCE [facility] ILENE CULVER Suze May 01, 2019 [id number] [place] PATIENT [employer] [place] MEDICARE SUPPLEMEN [facility] SUPPL EMENT Jan 04, 2020 [id number] [place] PATIENT [place] [place] MEDICARE SUPPLEMEN [facility] Suze [facility] MED Nov 30, 2019 [id number] [facility] CE ORGANIZ COS EARLY RETIR EE May 01, 2015 [id number] [facility] CE ORGANIZAT ION Oct 30, 2012 [id number] [place] PATIENT MEDICARE (WNR) MEDICARE (M) PART A Nov 30, 2019 PART A [id number] JENNIFER MICHAEL [place] PATIENT MEDICARE (WNR) MEDICARE (M) PART B Nov 30, 2019 PART B [id number] JENNIFER MICHAEL [place] PATIENT MEDICARE (WNR) MEDICARE (M) PART A Nov 30, 2019 PART A [id number] JENNIFER MICHAEL [place] PATIENT MEDICARE (WNR) MEDICARE (M) PART B Nov 30, 2019 PART B [id number] JENNIFER MICHAEL [place] PATIENT Selected Encounter This section includes the information on record at [place] for the Encounter. Date/Time Encounter Type Encounter Description Reason Provider Source Jun 26, 2024 11:30 AM OFFICE O/P EST MOD 30 MIN PRIMARY CARE/MEDICINE ICD-10-CM I10 Essential (primary) hypertension DESTINY HAMILTON Encounter Template Text not used by [place] Assessments - Encounter Diagnoses This section includes the primary and secondary diagnoses documented for the Encounter. Date/Time Primary/Secondary Diagnosis Diagnosis Name Provider Source Jul 08, 2024 01:00 PM PRIMARY Essential (primary) hypertension DESTINY HAMILTON Jul 08, 2024 01:00 PM SECONDARY Anxiety disorder, unspecified DESTINY HAMILTON Jul 08, 2024 01:00 PM SECONDARY Chronic obstructive pulmonary disease, unspecified DESTINY HAMILTON Jul 08, 2024 01:00 PM SECONDARY Depression, unspecified DESTINY HAMILTON Jul 08, 2024 01:00 PM SECONDARY Malignant neoplasm of unsp kidney, except renal pelvis DESTINY HAMILTON Jul 08, 2024 01:00 PM SECONDARY Nicotine dependence, other tobacco product, in remission DESTINY HAMILTON Jul 08, 2024 01:00 PM SECONDARY Thoracic aortic aneurysm, without rupture, unspecified DESTINY HAMILTON Plan of Treatment: Future Appointments (+ 6 months) and Future Tests (+/- 45 days) The Plan of Treatment section includes future care activities for the patient from all [facility] treatment[facility]ilities. This section includes future appointments and future orders which are active, pending or scheduled. Future Appointments This section includes appointments that were scheduled to occur 6 months from the date of the Encounter, up to a maximum of 20 appointments. The data comes from all [place] treatment [facility]. Appointment Date/Time Appointment Type Appointme nt Facility Name September 02, 2024 02:00 PM AMBULATORY - MEDICINE [facility] Oct 22, 2024 01:30 PM [facility] Nov 26, 2024 09:50 AM AMBULATORY - MEDICINE [facility] Dec 24, 2024 11:00 AM AMBULATORY - MEDICINE [facility] Active, Pending, and Scheduled Orders This section includes a listing of several types of active, pending, and scheduled orders, including clinic medications orders, diagnostic test orders, procedure orders and consult orders; where the start date of the order is 45 days before the date of the Encounter or 45 days after the date of theEncounter. The data comes from all [facility]. Test Date/Time Test Type Test Details Facility Name Jun 28, 2024 02:12 PM Consult Order [facility]ARDIOLOGY Cons Barrel [facility] Jul 16, 2024 10:54 AM Consult Order [facility]-ONCOLOGY Cons Barrel [facility] Lab Results: +/- 30 days of the encounter This section includes the Chemistry and Hematology Lab Results on record with [place] for the patient. Radiology Reports and Pathology Reports are provided separately, in subsequent sections. Lab Results This section contains the Chemistry/Hematology Results that were resulted 30 days before or 30 daysafter the date of the Encounter. Date/Time Source Result Type Result - Unit Interpretation Reference Range Specimen Type Comment Jun 21, 2024 01:34 PM [facility] HEMOGLOBIN A1C PANEL BLOOD Specimen Type: BLOOD Comment: Values obtained from A1C measurements can vary. For atypical A1C assays, a reported value of 7.0 could actually be between 6.72 and 7.28 if measured by a reference method. A reported value of 9.0 could actually be between 8.73 and 9.27. Ref: http://www.ngsp .org/CAPdata.as p Ordering Provider: DESTINY HAMILTON Report Released Date/Time: Dec 28, 2023 07:13 AM Reporting Lab: [facility] [address] [address] Performing Lab: [place] [facility] [place] [facility] [address] [address] HEMOGLOBIN A1C 5.2 4.0-5.6 Jun 21, 2024 01:34 PM [facility] [place] [facility] TSH SERUM Specimen Type: SERUM No comment entered. Ordering Provider: DESTINY HAMILTON Report Released Date/Time: Dec 28, 2023 07:13 AM Reporting Lab: [place] [facility] [place] [facility] [address] [address] Performing Lab: [place] [facility] [place] [facility] [address] [address] TSH 5.89 u[IU]/mL H 0.35-5.00 Jun 21, 2024 01:34 PM [facility] LIPID PANEL FASTING SERUM Specimen Type: SER UM No comment entered. Ordering Provider: DESTINY HAMILTON Report Released Date/Time: Dec 28, 2023 07:13 AM Reporting Lab: [place] [facility] [place] [facility] [address] [address] Performing Lab: [place] [facility] [place] [facility] [address] [address] CHOLESTEROL 146 mg/dL TRIGLYCERIDE 81 mg/dL 0-150 LDL calculated 89 mg/dL 0-129 CHOL/HDL 3.6 HDL CHOLESTEROL 41 mg/dL 40-60 Jun 21, 2024 01:34 PM [facility] LIVER FUNCTION SERUM Specimen Type: SERUM No comment entered. Ordering Provider: DESTINY HAMILTON Report Released Date/Time: Dec 28, 2023 07:13 AM Reporting Lab: [place] [facility] [place] [facility] [address] [address] Performing Lab: [place] [facility] [address] [address] PROTEIN,TOTAL 6.3 g/dL 6.0-8.3 ALBUMIN 3.4 g/dL L 3.5-5.0 ALKALINE PHOSPHATASE 107 U/L 40-150 AST 16 U/L 5-34 ALT 15 U/L BILIRUBIN, TOTAL 0.3 mg/dL 0.2-1.2 Jun 21, 2024 01:34 PM [facility] VITAMIN D (25-OH) SERUM Specimen Type: SERUM No comment entered. Ordering Provider: DESTINY HAMILTON Report Released Date/Time: Dec 28, 2023 07:13 AM Reporting Lab: [address] [address] Performing Lab: [address] [address] VITAMIN D (25-OH) <13 ng/mL L 20-50 Jun 21, 2024 01:34 PM [facility] PSA SERUM Specimen Type: SERUM No comment entered. Ordering Provider: DESTINY HAMILTON Report Released Date/Time: Dec 28, 2023 08:57 AM Reporting Lab: [address] [address] Performing Lab: [address] [address] PSA 3.43 ng/mL 0.00-4.00 Jun 21, 2024 01:34 PM [facility] BASIC METABOLIC PANEL (fasting) SERUM Specime n Type: SERUM No comment entered. Ordering Provider: DESTINY HAMILTON Report Released Date/Time: Dec 28, 2023 07:13 AM Reporting Lab: [address] [address] Performing Lab: [address] [address] UREA NITROGEN 13 mg/dL 7-25 GLUCOSE 98 mg/dL 65-100 SODIUM 139 mmol/L 135-145 POTASSIUM 5.0 mmol/L 3.5-5.0 CHLORIDE 104 mmol/L 100-110 CO2 27 meq/L 20-30 CALCIUM 8.3 mg/dL L 8.5-10.2 CREATININE, Serum 1.25 mg/dL 0.50-1.40 eGFR(CKD-EPI 2020) 62 mL/min >60 Jun 21, 2024 01:34 PM [facility] CBC AND DIFF (AUTO) BLOOD Specimen Type: BLOO D No comment entered. Ordering Provider: DESTINY HAMILTON Report Released Date/Time: Dec 28, 2023 07:13 AM Reporting Lab: [facility] [address] [address] Performing Lab: [facility] [address] [address] WBC 8.20 10*3/uL 4.50-11.00 RBC 5.10 10*6/uL 4.23-5.66 HGB 13.3 g/dL 12.8-17 HCT 42.6 39.2-50.4 MCV 83.5 fL 82-99 MCHC 31.2 g/dL 30.8-35.1 PLT 256 10*3/uL 140-360 RDW-CV 14.9 12.0-16.0 MONO, ABS 0.59 10*3/uL 0.30-1.10 MCH 26.1 pg L 26.2-32.6 NEUT % 71.4 43.7-75.8 LYMPH % 17.1 14.0-42.3 MONO % 7.2 5.1-13.7 EOS % 3.5 0.4-6.8 BASO % 0.6 0.1-2.0 NEUT, ABS 5.85 10*3/uL 2.20-7.60 LYMPH, ABS 1.40 10*3/uL 1.00-3.20 EOS, ABS 0.29 10*3/uL 0.03-0.44 BASO, ABS 0.05 10*3/uL 0.01-0.13 IMMATURE GRAN % 0.2 0.0-0.7 IMMATURE GRAN, ABS 0.02 10*3/uL 0.00-0.0 6 NRBC % 0.0 0.0-0.0 NRBC, ABS 0.00 10*3/uL 0.00-0.00 Social History: Smoking Status (Most current) and Tobacco Use (All prior to encounter date) This section includes the most current, and the historical, smoking and tobacco- related health factors from the [place] facility where the Encounter took place. Current Smoking Status This section includes the most current smoking, or tobacco-related health factor, from the [facility] where the Encounter took place. Date/Time Current Smoking Status Comment Janna long Jun 26, 2024 11:30 AM VA-TOBACCO USE FORMER CIGARETTES [place] Tobacco Use History This section includes a history of the smoking, or tobacco-related health factors, that were collected on or before the date of the Encounter. The data comes from the [facility] where the Encounter took place. Date/Time Smoking Status/Tobacco Use Comment F acility Jun 26, 2024 11:30 AM VA-TOBACCO USE FOR JR CIGARETTES [place] Jun 29, 2023 11:00 AM VA-TOBACCO FORMER USER [place] Jun 29, 2023 11:00 AM VA-TOBACCO QUIT 15 YRS OR MORE [place] May 09, 2022 10:30 AM VA-TOBACCO FORMER USER [place] May 09, 2022 10:30 AM VA-TOBACCO QUIT 15 YRS OR MORE [place] May 10, 2021 10:00 AM VA-TOBACCO NEVER USED [place] Jan 22, 2020 10:15 AM VA-TOBACCO FORMER USER [place] Jan 22, 2020 10:15 AM VA-TOBACCO QUIT 15 YRS OR MORE [place] Dec 12, 2018 09:45 AM VA-TOBACCO FORMER USER [place] Dec 12, 2018 09:45 AM VA-TOBACCO QUIT 15 YRS OR MORE [place] Oct 09, 2017 12:10 PM QUIT TOBACCO USE > 7 YEARS AGO [place] Aug 10, 2016 10:11 AM QUIT TOBACCO USE > 7 YEARS AGO Quit 20 years ago [place] Jun 01, 2015 09:59 AM QUIT TOBACCO USE > 7 YEARS AGO 15 years ago [place] Oct 29, 2010 08:54 AM QUIT TOBACCO USE > 7 YEARS AGO quit 10 yrs ago [place] Encounter Notes: All associated encounter notes This section contains the clinical notes associated to the Encounter. Date/Time Encounter Note(s) Provider Source Jun 26, 2024 11:29 AM PREVENTIVE MEDICIN E NURSING NOTE: LOCAL TITLE: CLINICAL REMINDERS/NURSING STANDARD TITLE: PREVENTIVE MEDICINE NURSING NOTE DATE OF NOTE: JUN 26, 2024@11:29 ENTRY DATE: JUN 26, 2024@11:30:01 AUTHOR: PAXTON LAGUNAS EXP COSIGNER: URGENCY: STATUS: COMPLETED Suicide Screen: C-SSRS Screening [place] Suicide Severity Rating Scale (C-SSRS) screener 1. Over the past month, have you wished you were or wished you could go to sleep and not wake up? No 2. Over the past month, have you had any actual thoughts of killing yourself? No 3. Over the past month, have you been thinking about how you might do this? Response not required due to responses to other questions. 4. Over the past month, have you had these thoughts and had some intention of acting on them? Response not required due to responses to other questions. 5. Over the past month, have you started to work out or worked out the details of how to kill yourself? Response not required due to responses to other questions. 6. If yes, at any time in the past month did you intend to carry out this plan? Response not required due to responses to other questions. 7. In your lifetime, have you ever done anything, started to do anything, or prepared to do anything to end your life (for example, collected pills, obtained a gun, gave away valuables, went to the roof but didn't jump)? No 8. If YES, was this within the past 3 months? Response not required due to responses to other questions. Depression Screening: Perform PHQ-2 A PHQ-2 screen was performed. The score was 0 which is a negative screen for depression. Over the past two weeks, how often have you been bothered by the following problems? 1. Little interest or pleasure in doing things Not at all 2. Feeling down, depressed, or hopeless Not at all Tobacco Use Screening: The patient is a former cigarette smoker. Quit smoking GREATER THAN OR EQUAL to 15 years. The patient has never used other types of tobacco. Influenza Immunization: The patient has received the seasonal influenza vaccine for the current season at another location. Documented: INFLUENZA, UNSPECIFIED FORMULATION Historical Date Administered: Jan 2024 Exact date unknown Information Source: FROM PATIENT'S RECALL Alcohol Use Screen (AUDIT-C): Alcohol Screen: SCREEN FOR ALCOHOL (AUDIT-C) An alcohol screening test (AUDIT-C) was negative (score=0). 1. How often did you have a drink containing alcohol in the past year? Consider a drink to be a 12 ounce can or bottle of regular beer, 8 ounces of malt liquor, a 5 ounce glass of table wine, or a 1.5 ounce shot of liquor (like scotch, gin, or vodka). Never 2. How many drinks containing alcohol did you have on a typical day when you were drinking in the past year? Response not required due to responses to other questions. 3. How often did you have six or more drinks on one occasion in the past year? Response not required due to responses to other questions. COVID-19 Immunization: Vaccine given previously - no written/electronic documentation available The patient was instructed to bring a copy of their COVID-19 vaccine information to their next appointment so that this can be accurately recorded in their [place] medical record. Herpes Zoster (Shingles) Vaccine: The patient declines to receive the recommended dose of zoster (shingles) vaccine. Immunization: ZOSTER RECOMBINANT Refusal Reason: PATIENT DECISION Patient refuses all immunization(s) in the ZOSTER group Date Documented: 06/26/24 11:31 RSV Immunization: Respiratory Syncytial Virus (RSV) Vaccine: Refused [employer] (RSV vaccine, adjuvanted, Arexvy). Immunization: RSV, RECOMBINANT, PROTEIN SUBUNIT RSVPREF3, ADJUVANT RECONSTITUTED, 0.5 ML, PF Refusal Reason: PATIENT DECISION Patient refuses all immunization(s) in the RSV group Date Documented: 06/26/24 11:31 Sexual Orientation: The patient thinks of their sexual orientation as: Straight or Heterosexual /es/ PAXTON LAGUNAS LPN Licensed Practical Nurse Signed: 06/26/2024 11:31 PAXTON LAGUNAS Jun 26, 2024 06:26 AM PHYSICIAN NOTE: LOCAL TITLE: MD NOTE STANDARD TITLE: PHYSICIAN NOTE DATE OF NOTE: JUN 26, 2024@06:26 ENTRY DATE: JUN 26, 2024@06:26:37 AUTHOR: DESTINY HAMILTON EXP COSIGNER: URGENCY: STATUS: COMPLETED HISTORY OF PRESENT ILLNESS: FARHAD MICHAEL is a 68 yo MALE who presents at the [facility] for his annual wellness exam. Labs completed. Specialists: Cardiology - Dr Kerns Pulmonary -Dr Villasenor Urology - previously Dr Rock (now retired) Oncology - Dr Verma Active problems - Computerized Problem List is [...] Screening Colonoscopy 21. Gastro-esophageal reflux (SNOMED CT [id number]) The following VA and Non-VA meds were reconciled with patient: Active Outpatient Medications (including Supplies): Issue Date Status Last Fill Active Outpatient Medications Refills Expiration 1) ALBUTEROL 90MCG (CFC-F) 200D ORAL INHL Qty: ACTIVE Issue: 04/19/24 1 for 30 days Sig: INHALE 2 PUFFS BY MOUTH Refills: 1 Last : 05/09/24 EVERY 4 HOURS NEEDED Expr : 04/20/25 Indication: FOR BRONCHOSPASM 2) ASPIRIN 81MG EC TAB Qty: 120 for 90 days ACTIVE Issue: 11/20/23 Sig: TAKE ONE TABLET BY MOUTH ONCE DAILY TO Refills: 1 Last : 05/09/24 PREVENT STROKE/HEART ATTACK Expr : 11/20/24 Indication: FOR MYOCARDIAL REINFARCTION PREVENTION 3) AZELASTINE 137MCG/SPRAY 200D NASAL INHL Qty: ACTIVE Issue: 07/03/23 1 for 50 days Sig: SPRAY 1 SPRAY INTO EACH Refills: 1 Last : 05/07/24 NOSTRIL TWICE DAILY Expr : 07/03/24 4) BETAMETHASONE DIPROPIONATE 0.05% CREAM Qty: ACTIVE Issue: 04/26/24 45 for 30 days Sig: APPLY A SMALL AMOUNT Refills: 2 Last : 04/26/24 TOPICALLY TWICE DAILY FOR ITCHING/RASH Expr : 04/27/25 5) DILTIAZEM (EQV-TIAZAC) 300MG 24HR CAP Qty: ACTIVE (S) Issue: 04/19/24 90 for 90 days Sig: TAKE ONE CAPSULE BY Refills: 2 Last : 07/08/24 MOUTH ONCE DAILY Expr : 04/20/25 Indication: FOR HIGH BLOOD PRESSURE 6) FLUTICAS 500/SALMETEROL 50 INHL DISK 60 Qty: ACTIVE Issue: 06/29/23 3 for 90 days Sig: INHALE 1 PUFF BY MOUTH Refills: 0 Last : 06/16/24 EVERY 12 HOURS - RINSE MOUTH AFTER USE Expr : 06/29/24 Indication: FOR CONTROLLER MEDICATION FOR ASTHMA 7) FLUTICASONE PROP 50MCG 120D NASAL INHL Qty: ACTIVE Issue: 06/29/23 1 for 30 days Sig: INSTILL 2 SPRAYS INTO Refills: 0 Last : 03/28/24 EACH NOSTRIL ONCE DAILY Expr : 06/29/24 Indication: FOR NASAL IRRITATION/INFLAMMATION 8) HYDRALAZINE HCL 100MG TAB Qty: 270 for 90 ACTIVE Issue: 02/19/24 days Sig: TAKE ONE TABLET BY MOUTH THREE Refills: 0 Last : 05/09/24 TIMES A DAY Expr : 02/19/25 Indication: FOR HIGH BLOOD PRESSURE 9) HYDROXYZINE PAMOATE 25MG CAP Qty: 90 for 30 ACTIVE Issue: 01/12/24 days Sig: TAKE ONE CAPSULE BY MOUTH THREE Refills: 1 Last : 05/07/24 TIMES A DAY Expr : 01/12/25 Indication: FOR ITCHING 10) LORATADINE 10MG TAB Qty: 90 for 90 days Sig: ACTIVE Issue: 12/22/23 TAKE ONE TABLET BY MOUTH ONCE DAILY Refills: 0 Last : 03/11/24 Indication: FOR ALLERGY Expr : 12/22/24 11) MONTELUKAST NA 10MG TAB Qty: 90 for 90 days ACTIVE Issue: 02/19/24 Sig: TAKE ONE TABLET BY MOUTH ONCE DAILY FOR Refills: 2 Last : 05/09/24 ASTHMA Expr : 02/19/25 12) OMEPRAZOLE 20MG EC CAP Qty: 90 for 90 days ACTIVE Issue: 03/25/24 Sig: TAKE ONE CAPSULE BY MOUTH EVERY MORNING Refills: 2 Last : 06/13/24 30 MINUTES BEFORE BREAKFAST Expr : 03/26/25 13) ONDANSETRON HCL 8MG TAB Qty: 30 for 10 days ACTIVE Issue: 11/28/23 Sig: TAKE ONE TABLET BY MOUTH EVERY 8 HOURS Refills: 0 Last : 03/28/24 NEEDED Expr : 11/28/24 14) ROPINIROLE HCL 1MG TAB Qty: 90 for 30 days ACTIVE Issue: 11/28/23 Sig: TAKE ONE TABLET BY MOUTH THREE TIMES A Refills: 0 Last : 02/09/24 DAY Expr : 11/28/24 15) SERTRALINE HCL 100MG TAB Qty: 45 for 90 days ACTIVE Issue: 01/12/24 Sig: TAKE ONE-HALF TABLET BY MOUTH ONCE Refills: 0 Last : 04/04/24 DAILY Expr : 01/12/25 Indication: FOR AFFECTIVE DISORDER 16) TAMSULOSIN HCL 0.4MG CAP Qty: 90 for 90 days ACTIVE Issue: 12/19/23 Sig: TAKE ONE CAPSULE BY MOUTH AT BEDTIME Refills: 1 Last : 06/06/24 Expr : 12/19/24 Start Date Active Non-VA Medications Status Stop Date 1) Non-VA VITAMIN B COMPLEX CAP Si CAPSULE ACTIVE BY MOUTH ONCE DAILY 17 Total Medications ALLERGIES: ========= Patient has answered [facility] LAB HISTORY: CHEM 7 TREND LAB CUMULATIVE SELECTED Collection DT Spec GLUCOSE BUN CREATIN Sodium K+/Pot CL CO2 06/21/2024 13:34 SERUM 98 13 1.25 139 5.0 104 27 12/26/2023 11:12 SERUM 109 H 16 1.19 139 4.4 104 27 06/29/2023 12:14 SERUM 107 H 17 1.50 H 139 4.4 103 29 06/20/2023 12:23 SERUM 93 23 1.78 H 138 4.9 101 29 01/09/2023 12:32 SERUM 141 H 14 1.13 138 4.0 103 25 CBC TREND Collection DT Spec WBC RBC HGB HCT MCV MCH PLT 06/21/2024 13:34 BLOOD 8.20 5.10 13.3 42.6 83.5 26.1 L 256 06/20/2023 12:23 BLOOD 8.16 5.71 H 14.7 47.1 82.5 25.7 L 236 01/09/2023 12:32 BLOOD 9.08 6.06 H 15.0 49.4 81.5 L 24.8 L 340 06/01/2022 09:55 BLOOD 6.98 6.34 H 16.7 52.4 H 82.6 26.3 211 01/22/2020 10:06 BLOOD 7.20 5.60 15.1 47.2 84.3 27.0 238 HEMOGLOBIN A1C TREND Collection DT Spec HGBA1c 06/21/2024 13:34 BLOOD 5.2 12/26/2023 11:12 BLOOD 5.6 06/20/2023 12:23 BLOOD 5.6 01/09/2023 12:32 BLOOD 5.5 06/01/2022 09:55 BLOOD 6.0 H LIPID PANEL TREND Collection DT Spec CHOL HDL CHO/HDL LDL-c TRIG 06/21/2024 13:34 SERUM 146 41 3.6 89 81 12/26/2023 11:12 SERUM 121 29 L 4.2 67 124 06/20/2023 12:23 SERUM 171 39 L 4.4 100 161 H 06/01/2022 09:55 SERUM 159 46 3.5 97 82 06/08/2021 08:56 SERUM 153 46 3.3 80 134 LIVER PANEL TREND Collection DT Spec AST ALT T BILI ALK MARY T. PROT ALBUMIN 06/21/2024 13:34 SERUM 16 15 0.3 107 6.3 3.4 L 12/26/2023 11:12 SERUM 15 16 0.3 72 5.2 L 2.9 L 06/20/2023 12:23 SERUM 15 15 0.4 90 6.9 3.8 01/09/2023 12:32 SERUM 13 15 0.4 80 7.0 3.7 06/01/2022 09:55 SERUM 23 29 0.6 65 7.3 4.0 Collection DT Spec TSH 06/21/2024 13:34 SERUM 5.89 H HISTORY: PERIOD OF SERVICE - [facility] [employer] [facility] FROM Jan TO Jan COMBAT SERVICE INDICATED: No VITAL SIGNS: Blood Pressure 118/72 (06/26/2024 11:29) Pulse 70 (06/26/2024 11:29) Respiration 18 (12/28/2023 11:46) Pulse Oximetry 94% (06/26/2024 11:29) Temperature 97.4 F [36.3 C] (12/28/2023 11:46) Pain 0 (12/28/2023 11:46) Height 69 in [175.3 cm] (12/28/2023 11:46) Weight 177.2 lb [80.38 kg] (06/26/2024 11:29) BMI BMI: 26.2 REVIEW OF SYSTEMS: ENT: No sore throat, no cough CARDIOVASCULAR: No chest pain, no palpitations RESPIRATORY: No SOB, no wheezing GASTROINTESTINAL: No abd pain, no N/V/D GENITOURINARY: No urinary symptoms MUSCULOSKELETAL: No joint pain PSYCHIATRIC: No anxiety, no depression NEUROLOGIC: No H/A, no numbness, no weakness EXAMINATION: GENERAL: WD/WN in NAD HEENT: Moist mucosa NECK: Supple, no carotid bruits HEART: RRR, S1-S2, no murmurs LUNGS: CTA B/L ABDOMEN: Soft, NT/ND, + BS x 4 Quads PERIPH PULSES: 2+ B/L EXTREMITIES: FROM x 4, no edema NEUROLOGIC: AAO x3, no focal findings PSYCHIATRIC: Good eye contact, affect normal ASSESSMENT/PLAN: Adult Annual General Wellness Exam -advised eye exams yearly and dental exams Q6 mths -advised heart healthy well balanced diet and lifestyle habits -advised regular CV exercise for 30 mins on most days of the week 1. 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 Hypertension: well controlled on diltiazem 300mg/day (due to underlying lung dz) and hydralazine 100mg/TID 3. s/p Cardiac Arrest: incident occurred 09/15/22 requiring CPR for 2-3 mins then returning to consciousness, he developed narrow complex tachycardia, has a permanent implanted cardiac loop moniter since 08/2022 (battery lasts 3 yrs), managed by cardiology/Dr Kerns (last OV 02/15/24) 4. COPD w/Emphysema: advanced/severe, also has asthma/COPD overlap syndrome, on Striverdi Respimat 2.5mcg daily, montelukast 10mg/QHS, Wixela 500-50 BID, albuterol inh Q4 prn, managed by pulmonary/Dr Villasenor (last OV 03/21/24) 5. DEANGELO: diagnosed 2018, compliant with CPAP 6. Cannabis Use: eats edibles 1-2 times/week, smokes once a month 7. Hx Tobacco Dependence: in remission since late 1999 - (~50 pack yr hx) 8. Depression and Anxiety D/O: stable on sertraline 50mg/day 9. BPH: on tamsulosin 0.4mg/day, managed by urology/Dr Rock 10. GERD: on omeprazole 20mg/day 11. Chronic Rhinitis: on fluticasone NS, Azelstine NS, and loratidine 10mg/day 12. Colonoscopy Screen: completed 09/12/18, repeat due 2028 13. Ascending Thoracic Aortic Aneurysm: last CT Chest performed by lauro 05/16/24 measured 4.1cm x 3.6cm, stable and unchanged 14. Vitamin D Def: will start Vit D 2000IU daily 15. Abnormal TSH: slightly elevated today, will recheck in 6 mths FOLLOW UP: 6 mths - HTN/Lipids/Depression/Anxiety - FBW prior ========= UPCOMING APPOINTMENTS: 09/02/2024 13:30 NH[facility] OPTOMETRY 1 PM No barriers; Patient understands and agrees to current treatment plan. If pt has any questions, concerns, or changes in current health status he/she will call or [facility]. BMI>30/>24.99 High Risk: Patient declines to discuss weight management. Patient declined weight discussion. Discussed revisiting at a future visit. Medication Reconciliation: Outpatient: Has the patient been [...] Remote Allergy/ADR Data available for this patient [place] [facility] [place] [facility] No Known Allergies Med Recon [facility] (Tool #1) INCLUDED IN THIS LIST: Alphabetical [...] the patient into personal health records (i.e. [employer]) are NOT included in this list. Non-VA medications documented outside this [place], remote inpatient orders (regardless of status) and remote clinic medications are NOT included in this list. The patient and provider must always discuss medications the patient is taking, regardless of where the medication was dispensed or obtained. OUTPT ALBUTEROL 90MCG (CFC-F) 200D ORAL INHL (Status = Discontinued) INHALE 2 PUFFS BY MOUTH EVERY 4 HOURS NEEDED FOR BRONCHOSPASM Rx# [id number] Last Released: 01/04/24 Qty/Days Supply: 05/30 Rx Expiration Date: 06/29/24 Refills Remainin Indication: FOR BRONCHOSPASM OUTPT ALBUTEROL 90MCG (CFC-F) 200D ORAL INHL (Status = Active) INHALE 2 PUFFS BY MOUTH EVERY 4 HOURS NEEDED FOR BRONCHOSPASM Rx# [id number] Last Released: 04/29/24 Qty/Days Supply: 05/30 Rx Expiration Date: 04/20/25 Refills Remainin Indication: FOR BRONCHOSPASM OUTPT ASPIRIN 81MG EC TAB (Status = Active) TAKE ONE TABLET BY MOUTH ONCE DAILY TO PREVENT STROKE/HEART ATTACK Rx# [id number] Last Released: 04/29/24 Qty/Days Supply: 120/90 Rx Expiration Date: 11/20/24 Refills Remainin Indication: FOR MYOCARDIAL REINFARCTION PREVENTION OUTPT AZELASTINE 137MCG/SPRAY 200D NASAL INHL (Status = Active) SPRAY 1 SPRAY INTO EACH NOSTRIL TWICE DAILY Rx# [id number] Last Released: 04/29/24 Qty/Days Supply: Rx Expiration Date: 07/03/24 Refills Remainin OUTPT BETAMETHASONE DIPROPIONATE 0.05% CREAM (Status = Discontinued) APPLY A SMALL AMOUNT TOPICALLY TWICE DAILY FOR ITCHING/RASH Rx# [id number] Last Released: 01/04/24 Qty/Days Supply: Rx Expiration Date: 06/16/24 Refills Remainin OUTPT BETAMETHASONE DIPROPIONATE 0.05% CREAM (Status = Active) APPLY A SMALL AMOUNT TOPICALLY TWICE DAILY FOR ITCHING/RASH Rx# [id number] Last Released: 04/29/24 Qty/Days Supply: Rx Expiration Date: 04/27/25 Refills Remainin OUTPT DILTIAZEM (EQV-TIAZAC) 300MG 24HR CAP (Status = Discontinued) TAKE ONE CAPSULE BY MOUTH ONCE DAILY FOR HIGH BLOOD PRESSURE Rx# [id number] Last Released: 01/04/24 Qty/Days Supply: Rx Expiration Date: 07/24/24 Refills Remainin Indication: FOR HIGH BLOOD PRESSURE OUTPT DILTIAZEM (EQV-TIAZAC) 300MG 24HR CAP (Status = Active/Suspended) TAKE ONE CAPSULE BY MOUTH ONCE DAILY FOR HIGH BLOOD PRESSURE Rx# [id number] Last Released: 04/20/24 Qty/Days Supply: Rx Expiration Date: 04/20/25 Refills Remainin Indication: FOR HIGH BLOOD PRESSURE OUTPT FLUTICAS 500/SALMETEROL 50 INHL DISK 60 (Status = Active) INHALE 1 PUFF BY MOUTH EVERY 12 HOURS - RINSE MOUTH AFTER USE Rx# [id number] Last Released: 06/04/24 Qty/Days Supply: Rx Expiration Date: 06/29/24 Refills Remainin Indication: FOR CONTROLLER MEDICATION FOR ASTHMA OUTPT FLUTICASONE PROP 50MCG 120D NASAL INHL (Status = Active) INSTILL 2 SPRAYS INTO EACH NOSTRIL ONCE DAILY FOR NASAL IRRITATION/INFLAMMATION Rx# [id number] Last Released: 03/29/24 Qty/Days Supply: 05/30 Rx Expiration Date: 06/29/24 Refills Remainin Indication: FOR NASAL IRRITATION/INFLAMMATION OUTPT HYDRALAZINE HCL 100MG TAB (Status = Active) TAKE ONE TABLET BY MOUTH THREE TIMES A DAY FOR HIGH BLOOD PRESSURE Rx# [id number] Last Released: 04/29/24 Qty/Days Supply: Rx Expiration Date: 02/19/25 Refills Remainin Indication: FOR HIGH BLOOD PRESSURE OUTPT HYDROXYZINE PAMOATE 25MG CAP (Status = Active) TAKE ONE CAPSULE BY MOUTH THREE TIMES A DAY FOR ITCHING Rx# [id number] Last Released: 04/29/24 Qty/Days Supply: Rx Expiration Date: 01/12/25 Refills Remainin Indication: FOR ITCHING OUTPT LORATADINE 10MG TAB (Status = Active) TAKE ONE TABLET BY MOUTH ONCE DAILY FOR ALLERGY Rx# [id number] Last Released: 03/06/24 Qty/Days Supply: Rx Expiration Date: 12/22/24 Refills Remainin Indication: FOR ALLERGY OUTPT MONTELUKAST NA 10MG TAB (Status = Active) TAKE ONE TABLET BY MOUTH ONCE DAILY FOR ASTHMA Rx# [id number] Last Released: 04/29/24 Qty/Days Supply: Rx Expiration Date: 02/19/25 Refills Remainin OUTPT OLODATEROL/TIOTROP 2.5MCG/ACTUAT 60D INH (Status = ) INHALE 2 PUFFS (1 DOSE) BY MOUTH ONCE DAILY Rx# [id number] Last Released: 02/07/24 Qty/Days Supply: Rx Expiration Date: 05/29/24 Refills Remainin Indication: FOR COPD OUTPT OMEPRAZOLE 20MG EC CAP (Status = Active) TAKE ONE CAPSULE BY MOUTH EVERY MORNING 30 MINUTES BEFORE BREAKFAST Rx# [id number] Last Released: 06/04/24 Qty/Days Supply: Rx Expiration Date: 03/26/25 Refills Remainin OUTPT ONDANSETRON HCL 8MG TAB (Status = Active) TAKE ONE TABLET BY MOUTH EVERY 8 HOURS NEEDED Rx# [id number] Last Released: 03/29/24 Qty/Days Supply: 27/02 Rx Expiration Date: 11/28/24 Refills Remainin OUTPT ROPINIROLE HCL 1MG TAB (Status = Active) TAKE ONE TABLET BY MOUTH THREE TIMES A DAY Rx# [id number] Last Released: 02/09/24 Qty/Days Supply: Rx Expiration Date: 11/28/24 Refills Remainin OUTPT SERTRALINE HCL 100MG TAB (Status = Active) TAKE ONE-HALF TABLET BY MOUTH ONCE DAILY FOR AFFECTIVE DISORDER Rx# [id number] Last Released: 03/29/24 Qty/Days Supply: Rx Expiration Date: 01/12/25 Refills Remainin Indication: FOR AFFECTIVE DISORDER OUTPT TAMSULOSIN HCL 0.4MG CAP (Status = Active) TAKE ONE CAPSULE BY MOUTH AT BEDTIME Rx# [id number] Last Released: 06/04/24 Qty/Days Supply: Rx Expiration Date: 12/19/24 Refills Remainin Non-VA VITAMIN B COMPLEX CAP TAKE 1 CAPSULE BY MOUTH ONCE DAILY Non-VA medication recommended by VA provider. SUPPLIES /wilmer/ DESTINY HAMILTON MD Primary Care Physician Signed: 06/26/2024 12:40 DESTINY HAMILTON [place]
--- OUTSIDE RECORDS SUMMARY | 2024-09-12 14:23 | XMS_ITS | Encounter Summary ---
Author Organization [facility] Address [address] [place] [address] Care Team Providers Care Expediter Name Role Phone Vandana Lamb MD Primary Care Provider [phone] Encounter Details Date Type Department Care Team (Late st Contact Info) Description 01/30/2024 1:15 PM EDT Hospital Encounter TH HISTORIC ENCOUNTERS [facility] ONLY Mark Verma MD [address] [place] [phone] Social History Tobacco Use Types Packs/Day Years [...] a 68-year-old gentleman who presented to the [facility] ER on 09/15/2022 with gross hematuria. 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 He is . He has [...] Description 10/22/2024 1:30 PM EDT Office Visit [facility]cology [address] [place] [address] Mark Verma MD [address] [place] [phone] 11/26/2024 9:50 AM EDT Office Visit [facility] - [facility] [address] [facility] [address] [place] [phone] Greyson Kerns MD [address] [facility] [address] [place], [place] [phone] documented as of this encounter Procedures Procedure Name Priority Date/Time Associated Diagnosis Comments ..MISCELLANEOUS REFERENCE LAB TEST 01/30/2024 documented in this encounter Results * Miscellaneous reference lab test (01/30/2024) us Provider Onbase LAB BLOOD ORDERABLES Final Re sult documented in this encounter Visit Diagnoses Not on filedocumented in this encounter Care Teams Expediter Relationship Specialty Start Date End Date Vandana Lamb MD [address] [place] [address] PCP - General 02/01/23 documented as of this encounter
[2024-09-12 14:46] VITALS: PULSE 77; O2SAT 96
== END 2024-09-12 14:54 | disposition home or self-care (01) ==
LOC: HO.HPS 13:44
PROVIDERS: PCP Family Medicine; Visit Provider Internal Medicine
DX: J44.9 Chronic obstructive pulmonary disease, unspecified (principal); G47.34 Idiopathic sleep related nonobstructive alveolar hypoventilation; G47.33 Obstructive sleep apnea (adult) (pediatric); R06.09 Other forms of dyspnea
CPT/HCPCS: 94618; 99214

== ENCOUNTER → 2024-09-12 13:43 | Outpatient (BNVA) | payer OTHER, SELFPAY | PROVIDERS: PCP Family Medicine; Visit Provider Internal Medicine | DX: J44.9 Chronic obstructive pulmonary disease, unspecified (principal); G47.34 Idiopathic sleep related nonobstructive alveolar hypoventilation; G47.33 Obstructive sleep apnea (adult) (pediatric); R06.09 Other forms of dyspnea | CPT/HCPCS: 94618; 99212 ==

== ENCOUNTER 2024-11-07 13:30 | Outpatient (RCR) | payer OTHER, SELFPAY | END 2024-12-26 10:08 | disposition home or self-care (01) | LOC: HO.PR 13:30 | PROVIDERS: PCP Family Medicine; Visit Provider Internal Medicine | DX: J44.9 Chronic obstructive pulmonary disease, unspecified (principal); R06.09 Other forms of dyspnea | CPT/HCPCS: 94618; 94625; 99212 ==

== ENCOUNTER 2024-11-19 14:18 | Outpatient (AMB) | payer OTHER, SELFPAY ==
--- OUTSIDE RECORDS SUMMARY | 2024-08-27 11:53 | XMS_ITS | Encounter Summary ---
Author Name [facility] ([place]) Organization [facility]) Address [address] [place] [id number] Care Team Providers Care Real Estate Broker Name Role Phone ALFONSODESTINY Primary Care Provider Unavailabl e Insurance Providers: All historical and current Section Date Range: From patient's date of to the date document was created. This section includes the names of all active insurance providers for the patient. Insurance Provider Type of Coverage Plan Name Start of Policy Coverage End of Policy Coverage Group Number Member ID Insurance Provider's Telephone Number Policy Rodriguez's Name Patient's Relationship to Policy Rodriguez [employer] [facility] ILENE CULVRE Suze May 01, 2019 [id number] [place] PATIENT [employer]ALTH [place] MEDICARE SUPPLEMEN TAL GIC MCR SUPPL EMENT Jan 04, 2020 [id number] [place] PATIENT [employer]ALTH [place] MEDIC[place] SUPPLEMEN [facility] MED Nov 30, 2019 [id number] [facility] ORGANIZ COS EARLY RETIR EE May 01, 2015 [id number] [facility] ORGANIZAT ION Oct 30, 2012 [id number] MICHAEL,TH [place] PATIENT MEDICARE (WNR) MEDICARE (M) PART A Nov 30, 2019 PART A [id number] JENNIFER MICHAEL [place] PATIENT MEDICARE (WNR) MEDICARE (M) PART B Nov 30, 2019 PART B [id number] JENNIFER MICHAEL [place] PATIENT MEDICARE (WNR) MEDICARE (M) PART A Nov 30, 2019 PART A [id number] JENNIFER MICHAEL [place] PATIENT MEDICARE (WNR) MEDICARE (M) PART B Nov 30, 2019 PART B [id number] JENNIFER MICHAEL [facility] PATIENT Selected Encounter This section includes the information on record at MD for the Encounter. Date/Time Encounter Type Encounter Description Reason Pro vider Source Aug 27, 2024 03:53 PM Outpatient Encounter COMMUNITY CARE CONSULT IHE Encounter Template Text not used by MD Plan of Treatment: Future Appointments (+ 6 months) and Future Tests (+/- 45 days) The Plan of Treatment section includes future care activities for the patient [facility] This section includes future appointments and future orders which are active, pending or scheduled. Future Appointments This section includes appointments that were scheduled to occur 6 months from the date of the Encounter, up to a maximum of 20 appointments. The data comes from all MD treatment facilities. Appointment Date/Time Appointment Type Appointme nt Facility Name September 02, 2024 02:00 PM AMBULATORY - MEDICINE [facility] Oct 22, 2024 01:30 PM AMBULATORY - MEDICINE [facility] [place] Nov 19, 2024 10:10 AM AMBULATORY - MEDICINE [facility] [place] Nov 26, 2024 09:50 AM AMBULATORY - MEDICINE [facility] [place] [facility] Dec 24, 2024 11:00 AM AMBULATORY - MEDICINE [facility] Encounter Notes: All associated encounter notes This section contains the clinical notes associated to the Encounter. Date/Time Encounter Note(s) Provider Source Aug 27, 2024 03:53 PM NONVA NOTE: LOCAL TITLE: COMMUNITY CARE-REQUEST FOR SERVICE NOTE STANDARD TITLE: NONVA NOTE DATE OF NOTE: AUG 27, 2024@15:53 ENTRY DATE: AUG 27, 2024@15:53:14 AUTHOR: BREE KIM COSIGNER: URGENCY: STATUS: COMPLETED Request for Services (RFS) [facility] Consult: COMMUNITY CARE-pulmonary Consult No: sdf Date sent to scanning: sdf A Request for Service (RFS) form [id number] has been received which includes the following: Care Requested:continuity of care for COPD ICD-10 Dx code: J44.9 Date [facility] received request: Jul Date service required: August [facility] [address] [place] [address] [place] [address] appt on 09/12/2024 Alert to PACT-new CC pulmonary consult needed if in agreement. Thank you /wilmer/ BREE KIM Community Care RN Signed: 08/27/2024 15:55 Receipt Acknowledged By: 08/27/2024 16:07 /wilmer/ JOHN DIAZ LPN PACT 10 for LUISAMALLORY GARCIA 08/27/2024 16:06 /wilmer/ JOHN DIAZ LPN PACT 10 BREE KIM [facility]
[2024-11-19 14:23] VITALS: BP 126/54; PULSE 94; O2SAT 93; BMI 27.2
--- NOTE | 2024-11-19 14:23 | A.OFFVIS_ITS ---
Vital Signs 11/19/24 14:23 Height 5 ft 10 in Weight 189 lb 9.561 oz BMI 27.2 BP 126/54 L Blood Pressure Location Lt brachial Position Sitting Pulse 94 Pulse Source Pulse Oximeter Pulse Oximetry (%) 93 Oxygen Delivery Method Room Air Intake Visit Reasons: COPD Intake Note: pt is here for follow up but states he has been struggling for about a week, he has a lot of phlegm that he cannot get rid of. This affects his walking when it occurs. Director Supplier Quality Required: No Allergies beta mehul Allergy (Unknown, Uncoded 11/19/24 15:14) Unknown Medication List - Last Reconciled 11/19/24 by Mireya Palmoo MD acetaminophen 650 mg PO Q4H PRN albuterol sulfate 90 mcg/actuation 1 puff inhalation QID albuterol sulfate 2.5 mg inhalation Q4-6H PRN aspirin 81 mg PO DAILY diltiazem HCl ER 300 mg PO DAILY fluticasone propion-salmeterol 500-50 mcg/dose (Wixela Inhub) 1 inh inhalation Q12H 90 days fluticasone propionate 50 mcg/actuation (Flonase Allergy Relief) 1 spray intranasal DAILY hydralazine 100 mg PO TID ipratropium bromide 2 sprays intranasal TID loratadine (Allergy Relief (loratadine)) 10 mg PO DAILY montelukast 10 mg PO BEDTIME omeprazole 20 mg PO DAILY sertraline 50 mg PO DAILY tamsulosin 0.4 mg PO DAILY tiotropium-olodaterol 2.5-2.5 mcg/actuation (Stiolto Respimat) 2 puffs inhalation DAILY 90 days Do you need a note to return to daycare/school/sports/work: No HPI HPI COPD: Details: FARHAD IS HERE FOR HIS FOLLOW-UP. HE IS PARTICIPATING IN PULMONARY REHAB PROGRAM. TODAY HE COMES TO THE OFFICE AFTER THE, REHAB SESSION WHEN HE CAME DOWN TO THE OFFICE HE WAS SHORT OF BREATH AND HEART RATE WAS 112 AFTER SITTING DOWN FOR A WHILE THE HEART RATE HAS SETTLED DOWN TO 88 PER MINUTE AND O2 SAT IS 97%. HE DOES HAVE INTERMITTENT COUGH WITH FEELING OF MUCUS STUCK IN THE THROAT. SHORTNESS OF BREATH ON MINIMAL EXERTION IS SAME BEFORE. HE HAS NO WHEEZES . HE CONTINUES TO USE CPAP AND IS VERY COMPLIANT, EXCEPT ON THE DAYS WHEN IT IS VERY HOT AND HUMID. HE IS BEING FO[facility]ED [facility]. [facility] Medical History Dyspnea on minimal exertion Pulmonary nodule Respiratory failure with hypoxia Nocturnal hypoxemia COPD exacerbation Allergic rhinitis Asthma Restrictive lung disease secondary to obesity COPD (chronic obstructive pulmonary disease) DEANGELO (obstructive sleep apnea) Obesity Solitary lung nodule Sleep apnea Restrictive lung disease Esophageal reflux Diverticulosis HTN (hypertension) Allergic rhinitis Actinic keratosis Social History Patient Tobacco Use Status: Former Tobacco user Review of Systems Const All systems reviewed & are unremarkable except as noted in HPI and below Eyes Reports no additional complaints ENT Reports nasal congestion (Mild off and on) Card Denies chest pain, Denies irregular heart rhythm and Denies leg edema Resp Reports as per HPI GI Reports no additional complaints Reports no additional complaints Musc Reports no additional complaints Skin/Breast Reports system reviewed and no additional complaints, except as documented Neuro Reports no additional complaints Psych Reports no additional complaints Endo Reports no additional complaints Physical Exam Vital Signs: Last Vital Signs Pulse 94 11/19/24 14:23 BP 126/54 L 11/19/24 14:23 Pulse Ox 93 11/19/24 14:23 Oxygen Delivery Method Room Air 11/19/24 14:23 BMI result Body Mass Index 27.2 LOOKS QUITE THIN, AND SLIGHTLY SHORT OF BREATH DURING CONVERSATION Const Other: He has lost significant amount of weight since his last visit. General: comfortable, no acute distress (But somewhat short of breath during conversation), alert and awake Orientation/consciousness: patient oriented x3 HEENT Head: Yes normal to inspection General nose exam: No nasal polyps present, No nasal discharge present and Other nasal findings present (Mild nasal congestion) Face and sinus: Yes sinuses nontender Mouth: oropharynx normal Throat: Yes posterior oropharynx normal Eyes General: appearance normal, both eyes and all related structures Neck Neck: Yes normal visual inspection, Yes no lymphadenopathy, Yes trachea midline and Yes no JVD Thyroid: Thyroid normal Chest Chest palpation & inspection: normal inspection of the chest, normal palpation of entire chest wall and no tenderness Resp Other: Percussion note is resonant, breath sounds are distant with prolonged expiratory phase. LUNGS ARE CLEAR TODAY AND THERE ARE NO WHEEZES OR CREPITATIONS. Cardio Palpation: normal PMI Rate: regular rate and tachycardic Rhythm: regular rhythm Heart sounds: no gallops and no murmurs GI Inspection: Yes normal to inspection (THERE IS A SURGICAL SCAR WELL HEALED IN THE LEFT MID ABDOMEN) Palpation (GI): Soft to palpation, nontender, No hepatosplenomegaly present and no masses Auscultation: normal bowel sounds Back/Spine/Pelvis Thoracic/Lumbar Spine: thoracic and lumbar spine normal to inspection Skin General skin exam: rashes and/or lesions noted (Has the erythematous rash on both forearms, secondary to infusion therapy) Neuro General: patient oriented x3 and no focal motor deficits Cranial nerves: Yes CN's II-XII intact bilaterally Extrem General: Yes normal to inspection, Yes no clubbing, cyanosis or edema and Yes no calf tenderness Psych Appearance: grossly normal and well kempt Speech and movement: Normal speech and movement present Assessment & Plan Assessment & Plan (1) DEANGELO (obstructive sleep apnea): Comment: HE IS A WELL KNOWN CASE OF OBSTRUCTIVE SLEEP APNEA, WE DO NOT HAVE THE COMPLIANCE REPORT. HE CLAIMS THAT HE IS USING THE CPAP AT LEAST FOR 4-5 HRS EVERY NIGHT IN SPITE OF WEIGHT LOSS HE CONTINUES TO HAVE SYMPTOMS OF OBSTRUCTIVE SLEEP APNEA. HE IS BEING FOLLOWED UP FOR THAT AND MANAGED AT THE [facility] Code(s): G47.33 - Obstructive sleep apnea (adult) (pediatric) Category: Medical Plan: ADVISE THAT HE SHOULD CONTINUE TO USE CPAP REGULARLY EVERY NIGHT (2) COPD (chronic obstructive pulmonary disease): Comment: HE HAS MODERATELY SEVERE OBSTRUCTIVE AIRWAY DISORDER, WELL CONTROLLED AT THIS TIME, HE IS HAVING INCREASED SHORTNESS OF BREATH WITH EXERTION. EXERCISE INDUCED HYPOXEMIA WAS RULED OUT. HIS SHORTNESS OF BREATH IS NOT DUE TO EXERCISE INDUCED HYPOXEMIA, IT IS SECONDARY TO ADVANCED CHRONIC OBSTRUCTIVE PULMONARY DISEASE, CONFIRMED WITH PFT AND SUBSEQUENT YEARLY SPIROMETRY. Code(s): J44.9 - Chronic obstructive pulmonary disease, unspecified Category: Medical Plan: CONTINUE TO USE WIXELA 500-50 1 INHALATION B.I.D. STIOLTO RESPIMAT 2.5 MCG 2 INHALATIONS DAILY ALBUTEROL HFA 2 PUFFS Q 6 HOURS P.R.N. ALSO ORDERED MUCINEX 600 MG 1 B.I.D. TO USE FOR COUGH AND MUCUS IN THE THROAT (3) Restrictive lung disease secondary to obesity: Comment: HE HAS SOME,RESTRICTION SECONDARY TO OBESITY, HE HAD LOST WEIGHT, CLINICALLY I FEEL THAT HIS RESTRICTIVE DISORDER IS MUCH LESS. Code(s): J98.4 - Other disorders of lung; E66.9 - Obesity, unspecified Category: Medical Plan: HE HAS LOST SIGNIFICANT WEIGHT. ADVISED TO DO DEEP BREATHING. EXERCISES 3 TIMES A DAY (4) Dyspnea on minimal exertion: Comment: IN HIS CASE DYSPNEA ON MINIMAL EXERTION IS SECONDARY TO ADVANCED CHRONIC OBSTRUCTIVE PULMONARY DISEASE, AND DECONDITIONING. ON 6 MINUTES WALK HE DOES NOT QUALIFY FOR OXYGEN USE. Code(s): R06.09 - Other forms of dyspnea Category: Medical Plan: CONTINUE TO PARTICIPATE IN PULMONARY REHAB PROGRAM (5) Allergic rhinitis: Comment: DOES HAVE HISTORY OF CHRONIC ALLERGIC. RHINITIS WHICH SEEMS TO BE WELL CONTROLLED AT PRESENT I THINK HIS COMPLAINT OF FEELING SOME MUCUS IN THE THROAT THAT HE CAN NOT CLEAR UP IS PARTLY RELATED TO ALLERGIC RHINITIS. Code(s): J30.9 - Allergic rhinitis, unspecified Category: Medical Plan: CONTINUE USING MONTELUKAST 10 MG DAILY LORATADINE 10 MG ONCE A DAY P.R.N. FLONASE-50 2 SPRAYS IN EACH NOSTRIL DAILY Medications: New guaifenesin ER (Mucinex) 600 mg PO BID 30 tabs 3RF COUGH 15 days Coding Level of Care Code Est Pt Level 3 (72156) Diagnoses DEANGELO (obstructive sleep apnea) G47.33 COPD (chronic obstructive pulmonary disease) J44.9 Restrictive lung disease secondary to obesity J98.4; E66.9 Dyspnea on minimal exertion R06.09 Allergic rhinitis J30.9
--- OUTSIDE RECORDS SUMMARY | 2024-11-19 15:33 | XMS_ITS ---
Author Organization [facility] Address [address] [place] [address] Care Team Providers Care Pressure Steamer Tender Name Role Phone Vandana Lamb MD Primary Care Provider [phone] Active Problems Problem Noted Date Diagnosed Date Renal cell cancer, left 02/08/2023 Current Oncology Plans No current plan information found. Past Plans ONCOLOGY TREATMENT Plan Name Start Date Discontinue Date Treatment Medications Discontinue Reason Plan Provider Cycles [facility] BCN OP PEMBROLIZUMAB (200 MG) 023 02/16/2024 albuterol (PROVENTIL)diphenh ydrAMINE (BENADRYL)EPINEPHr ineEPINEPHrine (Anaphylaxis) (ADRENALIN)famotid ine (PF) (PEPCID)hydrocorti sone (SOLU-CORTEF) IVHydrocortisone Sod Suc (PF) (Solu-CORTEF)meper idine (DEMEROL) 25 MG/MLpembrolizumab (KEYTRUDA) infusionSaline Flush 0.9 %sodium chloride (NS) 0.9 %sodium chloride 0.9% bolus (NS) Therapy Complete Mark Verma MD 17 of 17 cycles started Radiation Treatments * No radiation treatments are documented for this patient in [facility]. Treatments may have been administered in another system.
--- OUTSIDE RECORDS SUMMARY | 2024-11-19 15:33 | XMS_ITS | Data Portability ---
Author Organization [facility] [address] Address [address] [place] [address] Assessment Encounter Date Assessment Date Assessment LastModified [...] Orders prednisone 20 mg tablet 2022 023 [id number], [address], [place], [id number], 3 10:33:26 azithromyci n 250 mg tablet 2022 023 [id number], [address], [place], [id number], 3 10:33:27 albuterol sulfate 2.5 mg/3 mL (0.083 %) solution for nebulizatio n 2022 023 Not available 3 10:19:59 ipratropium 0.5 mg-albutero l 3 mg (2.5 mg base)/3 mL nebulizatio n soln 2022 023 Not available 10:20:00 Patient TargetsNo targets recorded. Patient Instructions Encounter Date Encounter Id Patient Instructions Last Modified By Organization Details Last Modified Time 05/04/2022 [id number] COPD exacerbatio n plan: care instructions Not [...] Recorded Time Moderate chronic obstructive pulmonary disease 639324420 Active 2022 ALICIA TIGIST null, [place] - [facility] 3 09:26:13 Hypertensive disorder 32139386 Active 2022 ALICIA TIGIST null, PA - [facility] 3 09:26:25 Gastroesophage al reflux disease 839832877 Active 2022 ALICIA TIGIST null, PA - [facility] 3 09:27:52 Problem Notes None recorded. Procedures Surgical History Date Name Laterality Status Provider Name and Address Organization Details Recorded Time Nebulizer Treatment completed Kaitlin Art MD [address] [place] [address] [address], [place] - [facility] 05/04/2022 10:35:12 Imaging [...] by Pulse oximetry Heart rate Respiratory rate Body temperature Oxygen saturation Oxygen saturation in Arterial blood by Pulse oximetry Heart rate Respiratory rate Provider Name and Address Organization Details Last Updated DateTime 3 177.8 cm 33 kg/m2 963719. 25 g 94 % 94 % 110 /min 22 /min 97.4 [degF] 97 % 97 % 102 /min 18 /min ALICIA ESCOTO PA - [facility] 3 10:17:06 Date Recorded Systolic And Diastolic Provider Name and Address Organization Details Last Updated DateTime 05/04/2022 173/126 mm[Hg] ALICIA ESCOTO PA - [facility] 05/04/2022 09:29:56 Social History Question Answer Notes LastModified by Organizat ion Details LastModified Time Tobacco Smoking Status Former Smoker ALICIA molina PA - [facility] 05/04/2022 09:28:31 Have You Recently [...] SNOMED-CT Code Diagnosis ICD10 Code Diagnosis Note [id number] [address] [address] [phone] 01/14/2022 12:42:56 01/14/2022 14:12:45 [id number] Kaitlin Art MD [address] [phone] 05/04/2022 09:22:57 05/04/2022 10:54:56 Dyspnea 975638133 R06.00 Acute exac erbation of chronic obstructive pulmonary disease 102020995 J44.1 Health Concerns Section Related Observation LastModified by Organization Detai ls LastModified Time None Recorded Concern Status LastModified by Organization Details LastModified Time None Recorded Advance Directives Directive None Recorded Payers Insurance Date Sequence Insurance Name Policy Number Policy Rodriguez Covered Member ID Rodriguez Member ID Guarantor Name 07/20/2022 [facility] ([facility] Avinash Leiva [id number] Avinash Leiva 05/04/2022 [facility] ([facility] Avinash Leiva SELF SELF Avinash Leiva Notes Date Note Type Note Provider Name and Address Organization Details Recorded Time 05/04/2022 text/html Shortness of BreathReported bypatient.Timing3 days;worse at night Additional symptomsno anxiety; no nausea; no fatigue; no cough; no dizziness CHronic COPD Kaitlin Art MD [address] [facility] [place], [address], [place] - [facility] 05/04/2022 10:36:00
--- OUTSIDE RECORDS SUMMARY | 2024-11-19 15:33 | XMS_ITS | Clinical Summary ---
Author Organization [facility] Address [address] [place] [address] Phone Care Team Providers Care Power Switchboard Operator Name Role Phone Vandana Lamb MD Primary Care Provider [phone] Allergies Active Allergy Reactions Criticality Noted Date [...] Date Diagnosed Date Renal cell cancer, left ([facility] V24, [facility] V2 8) 02/08/2023 Encounters Date Type Department Care Team Description 10/22/2024 1:30 PM EDT Office Visit [facility] Hematology Oncology [address] [place] [phone] Mark Verma MD Renal cell cancer, left ([facility] V24, [facility] V28) (Primary Dx) 10/04/2024 10:25 AM EDT Ancillary Procedure [facility] [address] [facility] [address] [place] [phone] 10/01/2024 Telephone [facility] [address] [facility] [address] [place] [phone] Aureliano Fry MD from Last 3 Months Immunizations Name Administration Dates Next Due Pfizer (ages 12 & older) Bivalent, COVID-19 03/31 Pfizer SARS-CoV-2 COVID-19, mRNA, LNP-S, preservative free 02/19/2021,07/30/2020,07/09/2020 Surgical History Surgery Date Site/Laterality Comments COLONOSCOPY W/ BIOPSIES 03/09/2007 PROCEDURE: [place] COLONOSCOPY W/BIOPSY SINGLE/MULTIPLE; COMMENT: small cecal polyp: [...] DX:Asthma COPD (chronic obstructive pu lmonary disease) ([facility] V24, [facility] V28) 12/17/2018 DX:COPD (chronic o bstructive pulmonary disease) ([facility]) History of substance abuse ( [facility] V24, [facility] V28) 12/17/2018 DX:History of substance abus e ([facility]); COMMENT: alcoholism Actinic keratosis 12/17/2018 DX:Actinic ker atosis Allergic rhinitis 12/17/2018 DX:Allergic rh initis Hypertension 12/17/2018 DX:Hypertension DEANGELO (obstructive sleep apnea) 12/17/2018 DX :DEANGELO (obstructive sleep apnea) Lung nodule, solitary 12/17/2018 DX:Lung no dule, solitary Major depressive disorder, r ecurrent, moderate ([facility] V24, [facility] V28) 12/17/2018 DX:Major depressiv e disorder, recurrent, moderate ([facility]) Erectile dysfunction 12/17/2018 DX:Erectile dysfunction GERD [...] Sign Reading Time Taken Comments Blood Pressure 148/76 10/22/2024 1:33 PM EDT Pulse 103 10/22/2024 1:33 PM EDT Temperature 37.1 C (98.7 F) 10/22/2024 1:33 PM EDT Respiratory Rate - - Oxygen Saturation 95% 10/22/2024 1:33 PM EDT Inhaled Oxygen Concentration - - Weight 85.3 kg (188 lb) 10/22/2024 1:33 PM EDT Height 175.3 cm (5' 9 ) 02/15/2024 2:32 PM EDT Body Mass Index 27.76 02/15/2024 2:32 PM EDT Plan of Treatment Upcoming Encounters Date Type Department Care Team (Late st Contact Info) Description 11/26/2024 9:50 AM EDT Office Visit [facility] [address] [facility] [address] [place] [phone] Greyson Kerns MD [address] [facility] [address] [place] [address] 04/22/2025 1:00 PM EST Office Visit [facility] Hematology Oncology [address] [place] [phone] Mark Verma MD [address] [place] [phone] Health Maintenance Due Date Last Done Comments RSV Immunization Adult Patients (1 - Risk 60-74 years 1-dose series) 2014 Zoster Vaccines (2 of 2) 06/18/2020 04/23/2020, 07/0 05/2012 Abdominal Aortic Aneurysm (AAA) Screen 05/30/2023 Cholesterol Screening (Lipid Panel) 05/30/2023 Falls Risk Assessment 05/30/2023 Hepatitis C Screening 05/30/2023 Medicare Annual Wellness Visit 05/30/2023 Social Influencers of Health Screening 05/30/2023 COVID-19 Vaccine ( season) 2023 04/16/2022, 02/19/2021, 07/30/2020, Additional history exists Depression Screening 05/01/2024 Influenza Vaccine (#1) 2024 4, 03/31/2022, 01/13/2021, Additional history exists Hypertension/CHF/CAD Annual BMP Blood Test 03/11/2025 03/11/2024 Colorectal Cancer Screening: Colonoscopy 09/12/2028 09/12/2018 DTaP,Tdap,and Td Vaccines (5 - Td or Tdap) 05/10/2031 05/10/2021, 03/01/2010, 03/01/2010, Additional history exists Pneumococcal Vaccine: 50+ Years Completed 06/09/2022, 02/19/2021, 03/07/2011 Hepatitis B Vaccines Completed 11/16/2022, 07/07/2022, 06/09/2022 HIB Vaccines Aged Out No longer eligi [...] this topic Medical Devices Implanted Type Area Acute Care Physical Therapist Device Identifier Shelf Expiration Date Model / Serial / Lot Bsci-Crm [id number] Implanted:11/2022 (Quantity not on file) Cardiac Loop Recorder [employer] MGMT [id number] / [id number] / Procedures Procedure Name Priority Date/Time Associated Diagnosis Comments CARDIAC DEVICE CHECK- REMOTE- MURJ Routine 10/04/2024 10:24 AM EDT COMPREHENSIVE METABOLIC PANEL Routine 03/11/2024 12:00 PM EST Malignant neoplasm of left kidney, except renal pelvis (CMS/HCC V24, CMS/HCC V28) Drug therapy from Last 3 Months or Most Recently Relevant to Health Maintenance Results * Cardiac device check - Remote- MURJ (10/04/2024 10:24 AM EDT) Date Time Interrogation Session [id number] CV DEVICE CHECK Type Interrogation Session Remote Scheduled CV DEVICE CHECK Implantable Pulse Generator Acute Care Physical Therapist BSX CV DEVICE CHECK Implantable Pulse Generator Type ILR CV DEVICE CHECK Implantable Pulse Generator Model M301 CV DEVICE CHECK Implantable Pulse Generator Serial Number [id number] CV DEVICE CHECK Implantable Pulse Generator Implant Date 20230106 CV DEVICE CHECK Battery Status Beginning of Service CV DEVICE CHECK Atrial Tachy Statistic AT/AF Searcy Percent 1.00 CV DEVICE CHECK Date of Service 2024-10-04 CV DEVICE CHECK Anatomical Region Laterality Modality Device Interroga tion 10/01/2024 11:5 2 AM EDT Impressions 10/04/2024 10:17 AM EDT Normal Remote: No Events * This is a normal remote diagnostic device check * Alerts or events: None * Battery data was reviewed * Battery status: SIDNEY, * Presenting rhythm reviewed * Heart Rate Histograms reviewed Narrative Procedure Note Aureliano Fry MD - 10/04/2024 IMPRESSION: Normal Remote: No Events * This is a normal remote diagnostic device check * Alerts or events: None * Battery data was reviewed * Battery status: SIDNEY, * Presenting rhythm reviewed * Heart Rate Histograms reviewed Aureliano Fry MD CV IMPLANTABLE CARDIAC DEVICE PROCEDURES Final Result * (ABNORMAL) Comprehensive metabolic panel (03/11/2024 12:00 PM EST) Sodium 140 133 - 145 mmol/L LAB CHEMISTRY METHOD 03/11/2024 1:36 PM EST [facility] Potassium 4.7 3.5 - 5.5 mmol/L LAB CHEMISTRY METHOD 03/11/2024 1:36 PM EST [facility] Chloride 107 96 - 110 mmol/L LAB CHEMISTRY METHOD 03/11/2024 1:36 PM EST [facility] CO2 28 21 - [...] [facility] Comment:Calculation based on the Chronic Kidney Disease Epidemiology Collaboration (CKD-EPI) equation refit without adjustment for race. BUN/Creatinine Ratio 14.4 LAB [...] 1:36 PM [facility] Alkaline Phosphatase 80 42 - 121 unit/L LAB CHEMISTRY METHOD 03/11/2024 1:36 PM [facility] Total Protein 4.7(L) 6.0 - 8.0 g/dL LAB CHEMISTRY METHOD 03/11/2024 1:36 PM [facility] Albumin 2.6(L) 3.2 - 5.0 g/dL LAB CHEMISTRY METHOD 03/11/2024 1:36 PM [facility] Total Bilirubin 0.3 0.0 - 1.4 mg/dL LAB CHEMISTRY METHOD 03/11/2024 1:36 PM EST [facility] Blood Venous blood specimen / Unknown Venipuncture / Unknown 03/11/2024 12:00 PM EST 03/11/2024 12:25 PM EST us Mark Verma MD LAB BLOOD ORDERABLES Final Result [facility] [address] [place] [address], from Last 3 Months or Most Recently Relevant to Health Maintenance Insurance MEDICARE [facility] Advance Directives Documents on File Type Date Recorded Patient Service Unit Operator Oil Well Expl anation Health Care Decision (hx) 10/10/2023 [...] Care Decision (hx) 09/22/2022 AD LÓPEZ DIRECTIVE Care Teams Power Switchboard Operator Relationship Specialty Start Date End Date Vandana Lamb MD [address] [place] [address] PCP - General 02/01/23
== END 2024-11-19 15:00 | disposition home or self-care (01) ==
LOC: HO.HPS 14:19
PROVIDERS: PCP Family Medicine; Referring Provider Internal Medicine; Visit Provider Internal Medicine
DX: G47.33 Obstructive sleep apnea (adult) (pediatric) (principal); J44.9 Chronic obstructive pulmonary disease, unspecified; J98.4 Other disorders of lung; E66.9 Obesity, unspecified; R06.09 Other forms of dyspnea; J30.9 Allergic rhinitis, unspecified
CPT/HCPCS: 99213

== ENCOUNTER → 2024-11-19 14:18 | Outpatient (BNVA) | payer OTHER, SELFPAY | PROVIDERS: PCP Family Medicine; Visit Provider Internal Medicine | DX: G47.33 Obstructive sleep apnea (adult) (pediatric) (principal); J44.9 Chronic obstructive pulmonary disease, unspecified; J98.4 Other disorders of lung; E66.9 Obesity, unspecified; R06.09 Other forms of dyspnea; J30.9 Allergic rhinitis, unspecified | CPT/HCPCS: 99212 ==

== ENCOUNTER 2025-01-20 14:12 | Outpatient (AMB) | payer OTHER, SELFPAY ==
[2025-01-20 14:23] VITALS: BP 130/82; PULSE 85; O2SAT 94; BMI 28.8
--- NOTE | 2025-01-20 14:23 | A.OFFVIS_ITS ---
Vital Signs 01/20/25 14:23 Height 5 ft 10 in Weight 200 lb 9.93 oz BMI 28.8 BP 130/82 Blood Pressure Location Lt brachial Position Sitting Pulse 85 Pulse Source Pulse Oximeter Pulse Oximetry (%) 94 Oxygen Delivery Method Room Air Intake Visit Reasons: COPD Intake Note: pt is here for follow up and states he cannot breath, doing anything he cannot breath. [facility], he tries but he gets a suffocating feel and he takes off. Telephone Coin Box Collector Required: No Allergies beta mehul Allergy (Unknown, Uncoded 01/20/25 14:54) Unknown Medication List - Last Reconciled 01/20/25 by Mireya Palomo MD acetaminophen 650 mg PO Q4H PRN albuterol sulfate 90 mcg/actuation 1 puff inhalation QID albuterol sulfate 2.5 mg inhalation Q4-6H PRN aspirin 81 mg PO DAILY diltiazem HCl ER 300 mg PO DAILY fluticasone propion-salmeterol 500-50 mcg/dose (Wixela Inhub) 1 inh inhalation Q12H 90 days fluticasone propionate 50 mcg/actuation (Flonase Allergy Relief) 1 spray intranasal DAILY guaifenesin ER (Mucinex) 600 mg PO BID 15 days hydralazine 100 mg PO TID ipratropium bromide 2 sprays intranasal TID loratadine (Allergy Relief (loratadine)) 10 mg PO DAILY montelukast 10 mg PO BEDTIME omeprazole 20 mg PO DAILY sertraline 50 mg PO DAILY tamsulosin 0.4 mg PO DAILY tiotropium-olodaterol 2.5-2.5 mcg/actuation (Stiolto Respimat) 2 puffs inhalation DAILY 90 days HPI HPI COPD: Details: This 69 years old gentleman is here for follow-up, . After 2 months He is a case of advanced chronic obstructive pulmonary disease, CT scan of the chest showing bullous lung disease. And of his based spirometry showing very severe obstructive airway disorder. He was referred to pulmonary rehab program and went for a few sessions but since last month he has not been able to go, because he just can not walk more than a few minutes. Today he comes to the office and has to use the wheelchair. He is short of breath even at rest, We try to walk him in the hallway and after 2 or 3 minutes, he just becomes exhausted and can not walk any further. He is obviously dyspneic, but O2 sat remains in low 90s. I think he just can not walk enough to lower his O2 sat. . He had no recent respiratory infection. He denies any chest pain. [facility] Medical History Dyspnea on minimal exertion Pulmonary nodule Respiratory failure with hypoxia Nocturnal hypoxemia COPD exacerbation Allergic rhinitis Asthma Restrictive lung disease secondary to obesity COPD (chronic obstructive pulmonary disease) DEANGELO (obstructive sleep apnea) Obesity Solitary lung nodule Sleep apnea Restrictive lung disease Esophageal reflux Diverticulosis HTN (hypertension) Allergic rhinitis Actinic keratosis Social History Patient Tobacco Use Status: Former Tobacco user Review of Systems Const All systems reviewed & are unremarkable except as noted in HPI and below Eyes Reports no additional complaints ENT Reports nasal congestion (Mild off and on) Card Denies chest pain, Denies irregular heart rhythm and Denies leg edema Resp Reports as per HPI GI Reports no additional complaints Reports no additional complaints Musc Reports no additional complaints Skin/Breast Reports system reviewed and no additional complaints, except as documented Neuro Reports no additional complaints Psych Reports no additional complaints Endo Reports no additional complaints Physical Exam Vital Signs: Last Vital Signs Pulse 85 01/20/25 14:23 BP 130/82 01/20/25 14:23 Pulse Ox 94 01/20/25 14:23 Oxygen Delivery Method Room Air 01/20/25 14:23 BMI result Body Mass Index 28.8 LOOKS QUITE THIN, AND SLIGHTLY SHORT OF BREATH DURING CONVERSATION Const Other: He has lost significant amount of weight since his last visit. General: comfortable, no acute distress (But somewhat short of breath during conversation), alert and awake Orientation/consciousness: patient oriented x3 HEENT Head: Yes normal to inspection General nose exam: No nasal polyps present, No nasal discharge present and Other nasal findings present (Mild nasal congestion) Face and sinus: Yes sinuses nontender Mouth: oropharynx normal Throat: Yes posterior oropharynx normal Eyes General: appearance normal, both eyes and all related structures Neck Neck: Yes normal visual inspection, Yes no lymphadenopathy, Yes trachea midline and Yes no JVD Thyroid: Thyroid normal Chest Chest palpation & inspection: normal inspection of the chest, normal palpation of entire chest wall and no tenderness Resp Other: Percussion note is resonant, breath sounds are distant with prolonged expiratory phase. LUNGS ARE CLEAR TODAY AND THERE ARE NO WHEEZES OR CREPITATIONS. Cardio Palpation: normal PMI Rate: regular rate and tachycardic Rhythm: regular rhythm Heart sounds: no gallops and no murmurs GI Inspection: Yes normal to inspection (THERE IS A SURGICAL SCAR WELL HEALED IN THE LEFT MID ABDOMEN) Palpation (GI): Soft to palpation, nontender, No hepatosplenomegaly present and no masses Auscultation: normal bowel sounds Back/Spine/Pelvis Thoracic/Lumbar Spine: thoracic and lumbar spine normal to inspection Skin General skin exam: rashes and/or lesions noted (Has the erythematous rash on both forearms, secondary to infusion therapy) Neuro General: patient oriented x3 and no focal motor deficits Cranial nerves: Yes CN's II-XII intact bilaterally Extrem General: Yes normal to inspection, Yes no clubbing, cyanosis or edema and Yes no calf tenderness Psych Appearance: grossly normal and well kempt Speech and movement: Normal speech and movement present Office Procedures 6 Minute Walk Time:: 15:00 SPO2 % at rest: 96 Pulse at rest: 80 SPO2 % during excercise: 88 Pulse during excercise: 89 SPO2 % after excercise: 96 Pulse after excercise: 87 Distance in yards walked: 100 Karl Score: 8 Performance Observations:: Avinash walked on level ground unassisted, he walked on room air for 2 minutes before he had to stop d/t SOB, SPO2 at that time dropped to 88%. O2 started at 2 lpm and recovered to 96%. He maintained his SPO2 95-96% on 2 lpm continuous O2. [address] - 6 Minute Walk Results Reviewed Results Reviewed: 6 minutes walk . I walked with him for 3 minutes. O2 sat at rest 97%, after walking 3 minutes he felt very dyspneic and exhausted, O2 sat did drop to 88%. He was placed on O2 2 L/minute. Given rest with oxygen for a few minutes and then he was able to walk, , with less dyspnea, Assessment & Plan Assessment & Plan (1) COPD (chronic obstructive pulmonary disease): Comment: HE HAS SEVERE OBSTRUCTIVE AIRWAY DISORDER, HE IS HAVING INCREASED SHORTNESS OF BREATH WITH EXERTION. EXERCISE INDUCED HYPOXEMIA WAS RULED OUT ON LAST VISIT . BUT WHEN I TRIED TO WALK HIM FOR A SHORT PERIOD, HE BECAME EXHAUSTED AND COULD NOT WALK ANY FURTHER. HE WAS LEANING OVER A TABLE AND WHEN HE WAS TRYING TO TAKE REST HIS O2 SAT DID FALL DOWN TO 88%. I THINK HE DOES HAVE EXERTIONAL HYPOXEMIA BUT HE JUST CAN NOT WALK ENOUGH TO HAVE HIS O2 SAT GO DOWN. WE PUT HIM ON OXYGEN 2 L/MINUTE AND THEN MADE HIM WALK AND HE FELT BETTER, HIS O2 SAT REMAINED IN MID 90S. Code(s): J44.9 - Chronic obstructive pulmonary disease, unspecified Category: Medical Plan: PATIENT IS ALREADY ON [facility] TREATMENT WHICH INCLUDES WIXELA 500-51 INHALATION B.I.D.. SPIRIVA RESPIMAT 2.5 MG 2 PUFFS ONCE A DAY. ALBUTEROL HFA 2 PUFFS Q 4-6 HOURS OR ALBUTEROL SOLUTION IN THE NEBULIZER Q 4-6 HOURS P.R.N. FOR WHEEZING. WE WILL BE SENDING ORDER FOR HOME OXYGEN THERAPY. HE IS ADVISED TO USE O2 2 L/MINUTE WITH ANY PHYSICAL EXERTION. ALSO USE O2 2 L/MINUTE AT NIGHT, IF NOT USING THE CPAP (2) Restrictive lung disease secondary to obesity: Comment: HE HAS SOME,RESTRICTION SECONDARY TO OBESITY, HE HAD LOST WEIGHT, CLINICALLY I FEEL THAT HIS RESTRICTIVE DISORDER IS MUCH LESS. Code(s): J98.4 - Other disorders of lung; E66.9 - Obesity, unspecified Category: Medical Plan: TRY TO DO DEEP BREATHING EXERCISES 3 TIMES A DAY. (3) Respiratory failure with hypoxia: Comment: SINCE HIS ACUTE MYOCARDIAL INFARCTION HE HAS INCREASED DYSPNEA. ON EXERTION THIS IS PROBABLY DUE TO COMBINATION OF CARDIAC DISEASE WELL ADVANCED COPD. NOTED ABOVE UNDER COPD , O2 SAT DID DROP DOWN TO 88% ON WALKING ONLY FOR A FEW MINUTES. HE IS FEELING BETTER WITH OXYGEN SUPPLEMENTATION. Code(s): J96.91 - Respiratory failure, unspecified with hypoxia Category: Medical Plan: HE IS STARTED ON OXYGEN THERAPY 2 L/MINUTE WITH ANY PHYSICAL EXERTION, ALSO USE. O22 L/MINUTE WITH SLEEP, IF NOT USING THE CPAP. (4) Dyspnea on minimal exertion: Comment: IN HIS CASE DYSPNEA ON MINIMAL EXERTION IS SECONDARY TO ADVANCED CHRONIC OBSTRUCTIVE PULMONARY DISEASE, CARDIAC DISEASE AND DECONDITIONING. HE WAS SENT FOR PULMONARY REHAB BUT HE COULD NOT CONTINUE DUE TO DYSPNEA ON MINIMAL EXERTION. Code(s): R06.09 - Other forms of dyspnea Category: Medical Plan: I THINK OXYGEN THERAPY WOULD HELP HIM AND ONCE HE STABILIZES HE WILL BE INSTRUCTED TO GO BACK FOR PULMONARY REHAB PROGRAM. Orders: Orders AMB 6 minute walk Today J44.9 - Chronic obstructive pulmonary disease, unspecified Coding Level of Care Code Est Pt Level 4 (49436) Diagnoses COPD (chronic obstructive pulmonary disease) J44.9 Restrictive lung disease secondary to obesity J98.4; E66.9 Respiratory failure with hypoxia J96.91 Dyspnea on minimal exertion R06.09 CPT Codes Coding ([id number])
[2025-01-20 15:06] VITALS: PULSE 80; O2SAT 96
== END 2025-01-20 15:18 | disposition home or self-care (01) ==
LOC: HO.HPS 14:13
PROVIDERS: PCP Family Medicine; Visit Provider Internal Medicine
DX: J44.9 Chronic obstructive pulmonary disease, unspecified (principal); J98.4 Other disorders of lung; E66.9 Obesity, unspecified; J96.91 Respiratory failure, unspecified with hypoxia; R06.09 Other forms of dyspnea
CPT/HCPCS: 94618; 99214

== ENCOUNTER → 2025-01-20 14:12 | Outpatient (BNVA) | payer OTHER, SELFPAY | PROVIDERS: PCP Family Medicine; Visit Provider Internal Medicine | DX: J44.9 Chronic obstructive pulmonary disease, unspecified (principal); J96.91 Respiratory failure, unspecified with hypoxia; J98.4 Other disorders of lung; E66.9 Obesity, unspecified | CPT/HCPCS: 94618; 99212 ==

== ENCOUNTER 2025-04-22 12:58 | Outpatient (AMB) | payer OTHER, SELFPAY ==
--- OUTSIDE RECORDS SUMMARY | 2024-01-30 12:15 | XMS_ITS | Encounter Summary ---
Author Organization [facility] Address [address] [place] [address] Care Team Providers Care Fruit Ii Farmworker Name Role Phone Vandana Lamb MD Primary Care Provider [phone] Encounter Details Date Type Department Care Team (Late st Contact Info) Description 01/30/2024 1:15 PM EDT Hospital Encounter TH HISTORIC ENCOUNTERS [facility] Mark Verma MD [address] [place] [phone] Social History Tobacco Use Types Packs/Day Years Used Date Smoking Tobacco: Former Alcohol Use Standard Drinks/Week Comments Not Currently 0 (1 standard drink = 0.6 oz pur e alcohol) Sex and Gender Information Value Date Recorded Sex Assigned at Not on file Legal Sex Male 1:23 AM EST Gender Identity Not on file Sexual Orientation Not on file documented as of this encounter Last Filed Vital Signs Vital Sign Reading Time Taken Comments Blood Pressure 109/64 01/30/2024 1:28 PM EDT Sitting Left arm Pulse 87 01/30/2024 1:28 PM EDT Temperature - - Respiratory Rate - - Oxygen Saturation - - Inhaled Oxygen Concentration - - Weight 83.7 kg (184 lb 8.4 oz) 01/30/2024 2:05 PM EDT Height 175.3 cm (5' 9 ) 01/30/2024 1:28 PM EDT Body Mass Index 27.25 01/30/2024 1:28 PM EDT documented in this encounter Progress Notes * Mark Verma MD - 01/30/2024 1:30 PM EDT Diagnosis/treatment: Left-sided stage III T3aN0 renal cell cancer, diagnosed in 12/2022. The patient underwent a left total nephrectomy on 01/20/2023. She started adjuvant Keytruda on 02/20/2023 Interval history: The patient is a 68-year-old gentleman who presented to the [facility] ER on 09/15/2022 with gross hematuria. He suffered a cardiac arrest in the ER and was successfully resuscitated. A chest CTA on 09/15/2022 showed no pulmonary embolism and showed COPD. There was a 5.0 x 5.0 x 6.0 cm circumscribed round heterogeneously attenuating solid mass in the upper pole of the left kidney encroaching on the central sinus fat. There was no regional lymphadenopathy. He underwent a cardiac catheterization in 12/2022 which revealed no critical stenoses. He underwent a left total nephrectomy 01/20/[address] Rock and the pathology revealed a 5.8 cm grade 3 clear-cell renal cell carcinoma. The tumor extended into the renal sinus. No sarcomatoid features were present. All margins were negative for invasive carcinoma. He has recovered well from surgery. A baseline creatinine on 02/08/2023 was 1.6. He admits poor oral hydration. He is tolerating adjuvant Keytruda reasonably well. He reports mild fatigue x 2 days following infusions. He developed taste changes. He admits anorexia since presentation, which persists. He reportsearly satiety. He reports mild nausea. He lost weight from 208 pounds on 07/25/2023 down to 182 pounds on 01/09/2024. His weight was stable over the last interval. He reported a pruritic rash on his tiffanie nk, arms, scrotum and legs. He applies CeraVe lotion. He takes Atarax 25 mg 3 times daily with partial relief. I prescribed betamethasone cream and the rash on his trunk, arms, and legs has lessenedconsiderably. He has persistent rash on the scrotum, lessened considerably with hydrocortisone cream. He developed difficulty with restless legs at nighttime. I prescribed Requip which provides good partial relief. We infuse NS x 1 L with Keytruda infusions. He developed fevers and nausea and vomiting on 07/19/2023. We delayed the Keytruda by 1 week. He lost weight from 250 pounds in the spring 2022 down to 205 pounds at presentation, in part intentional weight loss and in part due to hospitalization. He admits anorexia since presentation. An A/P CT without contrast on 10/10/2023 was unremarkable. He reports intermittent mild to moderate dyspnea on exertion due to COPD. He denies cough. He denies hemoptysis. He denies headaches or diplopia. He denies nausea or abdominal pain. He denies unusual bone pain. Past medical history: COPD, S/P cardiac arrest, seasonal allergies. Current medications: Flomax, Flonase, Zyrtec, albuterol, diltiazem, Dulcolax. Allergies: Beta-blockers. Family history: His father was diagnosed with lung cancer and at age 55 from the cancer. His mother had no history of cancer. 1 of 2 sisters was diagnosed with lung cancer and in early 60s from the cancer.Another of 2 sisters was diagnosed with initially with breast cancer and subsequently with leukemiaand in her early 40s from leukemia. His 5 brothers have no history of cancer. His 2 sons and 2daughters have no history of cancer. 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 He is . He has 2 sons and 2 daughters. He denies alcohol use. He started smoking at age 16 and smoked a pack a day and quit at age 34. Review of systems: The remainder of a 10 point review of systems was unremarkable. Physical examination: HEENT: Sclerae anicteric, normal oropharyngeal membrane. Neck: No lymphadenopathy. Lungs: Clear to auscultation. Heart: No murmurs. Abdomen: Soft, nontender, no organomegaly or masses. Extremities: No edema. Skin: No rash. Neurologic: Normal gait. Assessment/plan: The patient is a 68-year-old gentleman who presented in 12/2022 with a left-sided stage III T3aN0 grade 3 renal cell cancer, diagnosed in 12/2022. The patient underwent a left total nephrectomy on 01/20/2023. He remains at high risk of disease recurrence due to the stage III grade 3 tumor. I recommended adjuvant Keytruda x1 year. A recent study showed a significant decrease in disease recurrence with adjuvant Keytruda. The overall survival data is too premature to document an overall survival advantage. I discussed adverse side effects of Keytruda, including fatigue, nausea, diarrhea, rash, pruritus, arthralgias, and autoimmune events, including hypothyroidism, pneumonitis, hepatitis, and colitis. A baseline creatinine on 02/08/2023 was 1.6. He admits poor oral hydration. He is tolerating adjuvant Keytruda reasonably well. He reports mild fatigue x 2 days following infusions. He developed taste changes. He admits anorexia since presentation, which persists. He reportsearly satiety. He reports mild nausea. He lost weight from 208 pounds on 07/25/2023 down to 182 pounds on 01/09/2024. His weight was stable over the last interval. He reported a pruritic rash on his tiffanie nk, arms, scrotum and legs. He applies CeraVe lotion. He takes Atarax 25 mg 3 times daily with partial relief. I prescribed betamethasone cream and the rash on his trunk, arms, and legs has lessened considerably. He has persistent rash on the scrotum, lessened considerably with hydrocortisone cream. He developed difficulty with restless legs at nighttime. I prescribed Requip which provides good partial relief. We infuse NS x 1 L with Keytruda infusions. He developed fevers and nausea and vomiting on 07/19/2023. We delayed the Keytruda by 1 week. An A/P CT without contrast on 10/10/2023 was unremarkable. He lost weight from 250 pounds in the spring 2022 down to 205 pounds at presentation, in part intentional weight loss and in part due to hospitalization. He admits anorexia since presentation. This encounter is of high risk. He has a stage III kidney cancer, which is a life-threatening condition. He remains on anticancer therapy with adjuvant Keytruda, which carries a risk of significant morbidity and mortality. documented in this encounter Plan of Treatment Upcoming Encounters Date Type Department Care Team (Late st Contact Info) Description 05/06/2025 2:30 PM EST Office Visit [facility] Hematology Oncology [address] [place] [address] Mark Verma MD [address] [place] [phone] 05/21/2025 2:10 PM EST Office Visit [facility] [address] [phone] Katey Baker, CEDRICK [address] [place] [address] Dr Gooden [address] [place] [phone] 07/03/2025 2:40 PM EST Office Visit [facility] [address] [phone] Migdalia Camp NP [address] [place] [address] Dr [address] [place] [phone] documented as of this encounter Procedures Procedure Name Priority Date/Time Associated Diagnosis Comments ..MISCELLANEOUS REFERENCE LAB TEST 01/30/2024 documented in this encounter Results * Miscellaneous reference lab test (01/30/2024) us Provider Onbase LAB BLOOD ORDERABLES Final Re sult documented in this encounter Visit Diagnoses Not on filedocumented in this encounter Care Teams Fruit Ii Farmworker Relationship Specialty Start Date End Date Vandana Lamb MD PCP - General 02/01/23 12/01/24 documented as of this encounter
--- OUTSIDE RECORDS SUMMARY | 2024-01-30 13:00 | XMS_ITS | Encounter Summary ---
Author Organization [facility] Address [address] [place] [address] Care Team Providers Care Hem Marker Name Role Phone Vandana Lamb MD Primary Care Provider [phone] Encounter Details Date Type Department Care Team (Late st Contact Info) Description 01/30/2024 2:00 PM EDT Hospital Encounter TH H[facility]ORIC ENCOUNTERS [facility] ONLY Social History Tobacco Use Types Packs/Day Years [...] Sign Reading Time Taken Comments Blood Pressure - - Pulse - - Temperature - - Respiratory Rate - - Oxygen Saturation - - Inhaled Oxygen Concentration - - Weight 83.7 kg (184 lb 8.4 oz) 01/30/2024 2:05 P M EDT Height 175.3 cm (5' 9 ) 01/30/2024 1:28 PM EDT Body Mass Index 27.25 01/30/2024 1:28 PM EDT documented in this encounter Progress Notes * Historical, Notes Results - 01/30/2024 2:00 PM EDT Patient arrives ambulatory for final treatment after MD SHELBY. This completes one year of keytruda. Stable patient assessment. Labs reviewed, medication released. Patient resting comfortably in chair with call zavaleta in reach. ?? 1515-Patient completed treatment without incident.Patient's next appointment in place for MD followup. Patient stable upon discharge.?? documented in this encounter Plan of Treatment Upcoming Encounters Date Type Department Care Team (Late st Contact Info) Description 05/06/2025 2:30 PM EST Office Visit [facility] Hematology Oncology [address] [place] [phone] Mark Verma MD [address] [place] [phone] 05/21/2025 2:10 PM EST Office Visit [facility] [address] [phone] Katey Baker, CEDRICK [address] [place] [address] Dr [address]en [address] [place] [phone] 07/03/2025 2:40 PM EST Office Visit [facility] [address] [phone] Migdalia Camp NP [address] [place] [address] Dr Gooden [address] [place] [phone] documented as of this encounter Visit Diagnoses Not on filedocumented in this encounter Care Teams Hem Marker Relationship Specialty Start Date End Date Vandana Lamb MD PCP - General 02/01/23 12/01/24 documented as of this encounter
[2025-04-22 13:10] VITALS: BP 130/64; PULSE 88; O2SAT 94; BMI 28.8
--- NOTE | 2025-04-22 13:10 | A.OFFVIS_ITS ---
Vital Signs 04/22/25 13:10 Height 5 ft 10 in Weight 200 lb 9.93 oz BMI 28.8 BP 130/64 Blood Pressure Location Lt brachial Position Sitting Pulse 88 Pulse Source Pulse Oximeter Pulse Oximetry (%) 94 Oxygen Delivery Method Room Air Intake Visit Reasons: COPD Intake Note: pt is here for follow up and states heis overall doing okay he still gets winded but his recovery is much better. when exerting with oxygen he uses it at 2liters. Food Service Representative Required: No Catering Chef: Catering Chef offered & declined Allergies beta mehul Allergy (Unknown, Uncoded 04/22/25 13:31) Unknown Medication List - Last Reconciled 04/22/25 by Mireya Palomo MD acetaminophen 650 mg PO Q4H PRN albuterol sulfate 90 mcg/actuation 1 puff inhalation QID albuterol sulfate 2.5 mg inhalation Q4-6H PRN aspirin 81 mg PO DAILY diltiazem HCl ER 300 mg PO DAILY fluticasone propion-salmeterol 500-50 mcg/dose (Wixela Inhub) 1 inh inhalation Q12H 90 days fluticasone propionate 50 mcg/actuation (Flonase Allergy Relief) 1 spray intranasal DAILY guaifenesin ER (Mucinex) 600 mg PO BID 15 days hydralazine 100 mg PO TID ipratropium bromide 2 sprays intranasal TID ipratropium-albuterol 0.5 mg-3 mg(2.5 mg base)/3 mL mL inhalation Q6H PRN loratadine (Allergy Relief (loratadine)) 10 mg PO DAILY montelukast 10 mg PO BEDTIME omeprazole 20 mg PO DAILY sertraline 50 mg PO DAILY tamsulosin 0.4 mg PO DAILY tiotropium-olodaterol 2.5-2.5 mcg/actuation (Stiolto Respimat) 2 puffs inhalation DAILY 90 days Do you need a note to return to daycare/school/sports/work: No HPI HPI COPD: Details: MR. MICHAEL 69 YEARS OLD GENTLEMAN IS A CASE OF ADVANCED CHRONIC OBSTRUCTIVE PULMONARY DISEASE . SINCE HIS LAST VISIT HIS CONDITION HAS REMAINED STABLE, . WITHOUT ANY ACUTE EXACERBATION ADDITION OF OXYGEN THERAPY HAS DEFINITELY HELPED AND MADE HIS QUALITY OF LIFE BETTER. HE CAN WALK AROUND FOR LONGER PERIODS IN THE HOUSE. STILL DOES NOT GO OUTDOORS. HAS VERY LITTLE COUGH OR WHEEZING . * FARHAD ALSO HAS OBSTRUCTIVE SLEEP APNEA, HE USES CPAP EVERY NIGHT, AND FOR THIS HE IS BEING FOLLOWED BY WE A RESPIRATORY SERVICE. [facility] Medical History Dyspnea on minimal exertion Pulmonary nodule Respiratory failure with hypoxia Nocturnal hypoxemia COPD exacerbation Allergic rhinitis Asthma Restrictive lung disease secondary to obesity COPD (chronic obstructive pulmonary disease) DEANGELO (obstructive sleep apnea) Obesity Solitary lung nodule Sleep apnea Restrictive lung disease Esophageal reflux Diverticulosis HTN (hypertension) Allergic rhinitis Actinic keratosis Social History Patient Tobacco Use Status: Former Tobacco user Review of Systems Const All systems reviewed & are unremarkable except as noted in HPI and below Eyes Reports no additional complaints ENT Reports nasal congestion (Mild off and on) Card Denies chest pain, Denies irregular heart rhythm and Denies leg edema Resp Reports as per HPI GI Reports no additional complaints Reports no additional complaints Musc Reports no additional complaints Skin/Breast Reports system reviewed and no additional complaints, except as documented Neuro Reports no additional complaints Psych Reports no additional complaints Endo Reports no additional complaints Physical Exam LOOKS QUITE THIN, AND SLIGHTLY SHORT OF BREATH DURING CONVERSATION Const Other: He has lost significant amount of weight since his last visit. General: comfortable, no acute distress (But somewhat short of breath during conversation), alert and awake Orientation/consciousness: patient oriented x3 HEENT Head: Yes normal to inspection General nose exam: No nasal polyps present, No nasal discharge present and Other nasal findings present (Mild nasal congestion) Face and sinus: Yes sinuses nontender Mouth: oropharynx normal Throat: Yes posterior oropharynx normal Eyes General: appearance normal, both eyes and all related structures Neck Neck: Yes normal visual inspection, Yes no lymphadenopathy, Yes trachea midline and Yes no JVD Thyroid: Thyroid normal Chest Chest palpation & inspection: normal inspection of the chest, normal palpation of entire chest wall and no tenderness Resp Other: Percussion note is resonant, breath sounds are distant with prolonged expiratory phase. LUNGS ARE CLEAR TODAY AND THERE ARE NO WHEEZES OR CREPITATIONS. Cardio Palpation: normal PMI Rate: regular rate and tachycardic Rhythm: regular rhythm Heart sounds: no gallops and no murmurs GI Inspection: Yes normal to inspection (THERE IS A SURGICAL SCAR WELL HEALED IN THE LEFT MID ABDOMEN) Palpation (GI): Soft to palpation, nontender, No hepatosplenomegaly present and no masses Auscultation: normal bowel sounds Back/Spine/Pelvis Thoracic/Lumbar Spine: thoracic and lumbar spine normal to inspection Skin General skin exam: rashes and/or lesions noted (Has the erythematous rash on both forearms, secondary to infusion therapy) Neuro General: patient oriented x3 and no focal motor deficits Cranial nerves: Yes CN's II-XII intact bilaterally Extrem General: Yes normal to inspection, Yes no clubbing, cyanosis or edema and Yes no calf tenderness Psych Appearance: grossly normal and well kempt Speech and movement: Normal speech and movement present Assessment & Plan Assessment & Plan (1) COPD (chronic obstructive pulmonary disease): Comment: HE HAS SEVERE OBSTRUCTIVE AIRWAY DISORDER, HE IS HAVING INCREASED SHORTNESS OF BREATH WITH EXERTION. ON THE LAST VISIT HE WAS NOTED TO HAVE HYPOXEMIA ON WALKING FOR 6 MINUTES. SO HE WAS PROVIDED WITH OXYGEN AT HOME, ALONG WITH PORTABLE CYLINDERS. HE FEELS MUCH BETTER WITH THE OXYGEN. HE CLAIMS THAT HIS QUALITY OF LIFE IS DEFINITELY IMPROVED AND HE CAN WALK LONGER DISTANCES IN THE HOUSE WITHOUT GETTING SHORT OF BREATH. Code(s): J44.9 - Chronic obstructive pulmonary disease, unspecified Category: Medical Plan: I REVIEWED THE LIST OF MEDS AND ENCOURAGED HIM TO CONTINUE USING THE PRESENT REGIMEN : WIXELA 500-51 INHALATION B.I.D. STIOLTO RESPIMAT 2 INHALATIONS DAILY. IPRATROPIUM-ALBUTEROL SOLUTION IN THE NEBULIZER Q 6 HOURS P.R.N. MUCINEX LA 600 MG B.I.D. ALBUTEROL HFA 2 PUFFS Q 6 HOURS P.R.N. FOR OUTDOORS ADVISED HIM TO DO DEEP BREATHING EXERCISES AT LEAST 3 TIMES A DAY. (2) Restrictive lung disease secondary to obesity: Comment: HE HAS SOME,RESTRICTION SECONDARY TO OBESITY, HE HAD LOST WEIGHT, CLINICALLY I FEEL THAT HIS RESTRICTIVE DISORDER IS MUCH LESS. Code(s): J98.4 - Other disorders of lung; E66.9 - Obesity, unspecified Category: Medical Plan: AGAIN STRESSED THAT HE NEEDS TO DO DEEP BREATHING EXERCISES 3 TIMES A DAY (3) Respiratory failure with hypoxia: Comment: SINCE HIS ACUTE MYOCARDIAL INFARCTION HE HAS INCREASED DYSPNEA ON EXERTION . THIS IS PROBABLY DUE TO COMBINATION OF CARDIAC DISEASE WELL ADVANCED COPD. HYPOXEMIA WELL TREATED WITH THE O2, 2 L/MINUTE WITH ANY PHYSICAL ACTIVITY. AND HE CAN ALSO USE IT PRN AT REST. Code(s): J96.91 - Respiratory failure, unspecified with hypoxia Category: Medical Plan: CONTINUE USING O2 2 L/MINUTE WITH ANY PHYSICAL ACTIVITY, AND ALSO P.R.N. AT REST. (4) Dyspnea on minimal exertion: Comment: IN HIS CASE DYSPNEA ON MINIMAL EXERTION IS SECONDARY TO ADVANCED CHRONIC OBSTRUCTIVE PULMONARY DISEASE, CARDIAC DISEASE AND DECONDITIONING. HE WAS SENT FOR PULMONARY REHAB BUT HE COULD NOT CONTINUE DUE TO DYSPNEA ON MINIMAL EXERTION. Code(s): R06.09 - Other forms of dyspnea Category: Medical Plan: I HAVE INSTRUCTED HIM TO DO THE EXERCISES HE WAS DOING IN PULMONARY REHAB PROGRAM. AND TRY TO WALK IN THE HOUSE MORE OFTEN (5) DEANGELO (obstructive sleep apnea): Comment: HE IS A WELL KNOWN CASE OF OBSTRUCTIVE SLEEP APNEA, WE DO NOT HAVE THE COMPLIANCE REPORT. HE CLAIMS THAT HE IS USING THE CPAP AT LEAST FOR 4-5 HRS EVERY NIGHT HE IS BEING FOLLOWED UP FOR DEANGELO MANAGEMENT AT THE [facility] Code(s): G47.33 - Obstructive sleep apnea (adult) (pediatric) Category: Medical Plan: CONTINUE FOLLOWING UP REGULARLY AT [facility] . Coding Level of Care Code Est Pt Level 3 (83660) Diagnoses COPD (chronic obstructive pulmonary disease) J44.9 Restrictive lung disease secondary to obesity J98.4; E66.9 Respiratory failure with hypoxia J96.91 Dyspnea on minimal exertion R06.09 DEANGELO (obstructive sleep apnea) G47.33
--- OUTSIDE RECORDS SUMMARY | 2025-04-22 14:03 | XMS_ITS ---
Author Organization [facility] Prior to 09/28/[address] [place] [id number] Care Team Providers Care Career Agent Name Role Phone Vandana Lamb MD Primary Care Provider [phone] Active Problems Problem Noted Date Diagnosed Date Renal cell cancer, left 02/08/2023 Current Oncology Plans No current plan information found. Past Plans ONCOLOGY TREATMENT Plan Name Start Date Discontinue Date Treatment Medications Discontinue Reason Plan Provider Cycles [facility] BCN OP PEMBROLIZUMAB (200 MG) 023 02/16/2024 albuterol (PROVENTIL)diphenh ydrAMINE (BENADRYL)EPINEPHr ineEPINEPHrine (Anaphylaxis) (ADRENALIN)famotid ine (PF) (PEPCID)hydrocorti sone (SOLU-CORTEF) IVHydrocortisone Sod Suc (PF) (Solu-CORTEF)meper idine (DEMEROL) 25 MG/MLpembrolizumab (KEYTRUDA) infusionSaline Flush 0.9 %sodium chloride (NS) 0.9 %sodium chloride 0.9% bolus (NS) Therapy Complete Mark Verma MD 17 of 17 cycles started Radiation Treatments * No radiation treatments are documented for this patient in [facility]. Treatments may have been administered in another system.
--- OUTSIDE RECORDS SUMMARY | 2025-04-22 14:03 | XMS_ITS | Clinical Summary ---
Author Organization [facility] Prior to 09/28/[address] [place] [address] Care Team Providers Care Power Tool Repair Technician Name Role Phone Vandana Lamb MD Primary Care Provider [phone] Allergies Active Allergy Reactions Criticality Noted Date Comments Beta Adrenergic Blockers Other (See Comments) High 02/08/2023 Pt had while hospitalized Medications Medication Sig Dispensed Refills Start Date End Date Status Tiotropium Royal-Olodaterol (STIOLTO RESPIMAT IN) Inhale into the lungs. [...] 78 01/30/2024 2:05 PM EDT Temperature 36.8 C (98.3 F) 01/30/2024 2:05 PM EDT Respiratory Rate 18 01/09/2024 2:16 PM EDT [...] 2) 06/18/2020 04/23/2020 COVID-19 Vaccine ( season) 2024 04/16/2022, 02/19/2021, 07/30/2020, Additional history exists Influenza Vaccine (#1) 2024 , 01/22/2020, 03/01/2019, Additional history exists RSV [...] age to complete this topic Care Teams Power Tool Repair Technician Relationship Specialty Start Date End Date Vandana Lamb MD [address] [place] [address] PCP - General Family Medicine 02/01/23
--- OUTSIDE RECORDS SUMMARY | 2025-04-22 14:03 | XMS_ITS | Clinical Summary ---
Author Organization [facility] Address [address] [place] [address] Phone Care Team Providers Care Well Service Floor Worker Name Role Phone Vandana Lamb MD Primary Care Provider [phone] Allergies Active Allergy Reactions Criticality Noted Date [...] Diagnosed Date Renal cell cancer, left 02/08/2023 Encounters Date Type Department Care Team Description 04/15/2025 10:25 PM EST Ancillary Procedure [facility] Cardiology [facility] [address] [facility] [address] [place] [address] 03/25/2025 Telephone [facility] Cardiology [facility] [address] [facility] [address] [place] [address] Aureliano Fry MD 03/14/2025 10:20 PM EST Ancillary Procedure [facility] Cardiology [facility] - [facility] [address] [facility] [address] [place] [address] 01/29/2025 5:15 AM EDT Ancillary Procedure [facility] Cardiology [facility] [address] [facility] [address] [place] [address] from Last 3 Months Immunizations Immunization Administration Dates Next Due Pfizer (ages 12 & older) Bivalent, COVID-19 03/31 Pfizer SARS-CoV-2 COVID-19, mRNA, LNP-S, preservative free 02/19/2021,07/30/2020,07/09/2020 Surgical History Surgery Date Site/Laterality Comments COLONOSCOPY W/ BIOPSIES 03/09/2007 PROCEDURE: [place] COLONOSCOPY W/BIOPSY SINGLE/MULTIPLE; COMMENT: small cecal polyp: [...] DX:Asthma COPD (chronic obstructive pu lmonary disease) ([facility] V24, [facility] V28) 12/17/2018 DX:COPD (chronic o bstructive pulmonary disease) ([facility]) History of substance abuse ( [facility] V24, [facility] V28) 12/17/2018 DX:History of substance abus e ([facility]); COMMENT: alcoholism Actinic keratosis 12/17/2018 DX:Actinic ker atosis Allergic rhinitis 12/17/2018 DX:Allergic rh initis Hypertension 12/17/2018 DX:Hypertension DEANGELO (obstructive sleep apnea) 12/17/2018 DX :DEANGELO (obstructive sleep apnea) Lung nodule, solitary 12/17/2018 DX:Lung no dule, solitary Major depressive disorder, r ecurrent, moderate ([facility] V24, [facility] V28) 12/17/2018 DX:Major depressiv e disorder, recurrent, moderate ([facility]) Erectile dysfunction 12/17/2018 DX:Erectile dysfunction GERD (gastroesophageal [...] on file Sexual Orientation Not on file Last Filed Vital Signs Vital Sign Reading Time Taken Comments Blood Pressure 124/80 11/26/2024 9:54 AM EDT Pulse 73 11/26/2024 9:54 AM EDT Temperature 37.1 C (98.7 F) 10/22/2024 1:33 PM EDT Respiratory Rate - - Oxygen Saturation 95% 11/26/2024 9:54 AM EDT Inhaled Oxygen Concentration - - Weight 89.8 kg (198 lb) 11/26/2024 9:54 AM EDT Height 175.3 cm (5' 9 ) 11/26/2024 9:54 AM EDT Body Mass Index 29.24 11/26/2024 9:54 AM EDT Plan of Treatment Upcoming Encounters Date Type Department Care Team (Late st Contact Info) Description 05/06/2025 2:30 PM EST Office Visit [facility] Hematology Oncology [address] [place] [phone] Mark Verma MD [address] [place] [phone] 05/21/2025 2:10 PM EST Office Visit [facility] [address] [phone] Katey Baker NP [address] [place] [address] [address] [place] [address] 07/03/2025 2:40 PM EST Office Visit [facility] [address] [facility] [address] [place] [phone] Migdalia Camp NP [address] [place] [address] Dr [address] [place] [phone] Health Maintenance Due Date Last Done Comments Zoster Vaccines (2 of 2) 06/18/2020 04/23/2020, 07/0 05/2012 Abdominal Aortic Aneurysm (AAA) Screen 05/30/2023 Cholesterol Screening (Lipid Panel) 05/30/2023 Falls Risk Assessment 05/30/2023 Hepatitis C Screening 05/30/2023 Medicare Annual Wellness Visit 05/30/2023 Social Influencers of Health Screening 05/30/2023 Depression Screening 05/01/2024 COVID-19 Vaccine ( season) 2024 04/16/2022, 02/19/2021, 07/30/2020, Additional history exists Hypertension/CHF/CAD Annual BMP Blood Test 03/11/2025 03/11/2024 Colorectal Cancer Screening: Colonoscopy 09/12/2028 09/12/2018 DTaP,Tdap,and Td Vaccines (6 - Td or Tdap) 05/10/2031 05/10/2021, 11/19/2012, 03/01/2010, Additional history exists Pneumococcal Vaccine: 50+ Years Completed 06/09/2022, 02/19/2021, 03/07/2011 Hepatitis B Vaccines Completed 11/16/2022, 07/07/2022, 06/09/2022 Influenza Vaccine Completed 03/17/2025, , 01/30/2024, Additional history exists RSV Immunization Adult Patients Completed 03/25/2025 HIB Vaccines Aged Out No longer eligi [...] this topic Medical Devices Implanted Type Area Admissions Director Device Identifier Shelf Expiration Date Model / Serial / Lot Bsci-Crm [id number] Implanted:11/2022 (Quantity not on file) Cardiac Loop Recorder [employer] MGMT [id number] / [id number] / Procedures Procedure Name Priority Date/Time Associated Diagnosis Comments CARDIAC DEVICE CHECK- REMOTE- MURJ Routine 04/15/2025 10:23 PM EST CARDIAC DEVICE CHECK- REMOTE- MURJ Routine 03/14/2025 10:15 PM EST CARDIAC DEVICE CHECK- REMOTE- MURJ Routine 01/29/2025 5:12 AM EDT COMPREHENSIVE METABOLIC PANEL Routine 03/11/2024 12:00 PM EST Malignant neoplasm of left kidney, except renal pelvis (CMS/HCC V24, CMS/HCC V28) Drug therapy from Last 3 Months or Most Recently Relevant to Health Maintenance Results * Cardiac device check - Remote- MURJ (04/15/2025 10:23 PM EST) Only the most recent of3 resultswithin the time period is included. Date Time Interrogation Session [id number] CV DEVICE CHECK Type Interrogation Session Remote Scheduled CV DEVICE CHECK Implantable Pulse Generator Admissions Director BSX CV DEVICE CHECK Implantable Pulse Generator Type ILR CV DEVICE CHECK Implantable Pulse Generator Model M301 CV DEVICE CHECK Implantable Pulse Generator Serial Number [id number] CV DEVICE CHECK Implantable Pulse Generator Implant Date 20230106 CV DEVICE CHECK Battery Status Beginning of Service CV DEVICE CHECK Atrial Tachy Statistic AT/AF [place] Percent 0.00 CV DEVICE CHECK Date of Service 2025-04-15 CV DEVICE CHECK Anatomical Region Laterality Modality Device Interroga tion 04/11/2025 11:5 5 AM EST Impressions 04/15/2025 12:18 PM EST Normal Remote: No Events * This is a normal remote diagnostic device check * Alerts or events: None * Battery data was reviewed * Battery status: SIDNEY, * Presenting rhythm reviewed * Heart Rate Histograms reviewed Narrative Procedure Note Aureliano Fry MD - 04/15/2025 IMPRESSION: Normal Remote: No Events * This is a normal remote diagnostic device check * Alerts or events: None * Battery data was reviewed * Battery status: SIDNEY, * Presenting rhythm reviewed * Heart Rate Histograms reviewed Aureliano Fry MD CV IMPLANTABLE CARDIAC DEVICE PROCEDURES Final Result * (ABNORMAL) Comprehensive metabolic panel (03/11/2024 12:00 PM EST) [facility] Signature Sodium 140 133 - 145 mmol/L LAB CHEMISTRY METHOD 03/11/2024 1:36 PM [facility] Potassium 4.7 3.5 - 5.5 mmol/L LAB CHEMISTRY METHOD 03/11/2024 1:36 PM [facility] Chloride 107 96 - 110 mmol/L LAB CHEMISTRY METHOD 03/11/2024 1:36 PM [facility] CO2 28 21 - 32 mmol/L LAB CHEMISTRY METHOD 03/11/2024 1:36 PM [facility] Anion Gap 5 3 - 11 LAB CHEMISTRY METHOD 03/11/2024 1:36 PM [facility] Glucose 99 70 - 100 mg/dL LAB CHEMISTRY METHOD 03/11/2024 1:36 PM [facility] BUN 19 5 - 25 mg/dL LAB CHEMISTRY METHOD 03/11/2024 1:36 PM [facility] Creatinine 1.32(H) 0.70 - 1.30 mg/dL LAB CHEMISTRY METHOD 03/11/2024 1:36 PM [facility] eGFR 58(L) >=60 mL/min/1. 73m2 LAB CHEMISTRY METHOD 03/11/2024 1:36 PM [facility] Comment:Calculation based on the Chronic Kidney Disease Epidemiology Collaboration (CKD-EPI) equation refit without adjustment for race. BUN/Creatinine Ratio 14.4 LAB CHEMISTRY METHOD 03/11/2024 1:36 PM [facility] Calcium 8.1(L) 8.5 - 10.5 mg/dL LAB CHEMISTRY METHOD 03/11/2024 1:36 PM [facility] AST (SGOT) 16 10 - 42 unit/L LAB CHEMISTRY METHOD 03/11/2024 1:36 PM [facility] ALT (SGPT) 18 10 - 60 unit/L LAB CHEMISTRY METHOD 03/11/2024 1:36 PM [facility] Alkaline Phosphatase 80 42 - 121 unit/L LAB CHEMISTRY METHOD 03/11/2024 1:36 PM EST [facility] Total Protein 4.7(L) 6.0 - 8.0 g/dL LAB CHEMISTRY METHOD 03/11/2024 1:36 PM EST [facility] Albumin 2.6(L) 3.2 - 5.0 g/dL LAB CHEMISTRY METHOD 03/11/2024 1:36 PM EST [facility] Total Bilirubin 0.3 0.0 - 1.4 mg/dL LAB CHEMISTRY METHOD 03/11/2024 1:36 PM EST [facility] Blood Venous blood specimen / Unknown Venipuncture / Unknown 03/11/2024 12:00 PM EST 03/11/2024 12:25 PM EST us Mark Verma MD LAB BLOOD ORDERABLES Final Result [facility] [address] [place] [address], from Last 3 Months or Most Recently Relevant to Health Maintenance Insurance MEDICARE [facility] Advance Directives Documents on File Type Date Recorded Patient Eyelet Maker Expl anation Health Care Decision (hx) 10/10/2023 [...] DIRECTIVE Health Care Decision (hx) 09/22/2022 AD LPÓEZ DIRECTIVE Health Care Decision (hx) 09/22/2022 AD [...] (hx) 09/22/2022 AD LÓPEZ DIRECTIVE Care Teams Well Service Floor Worker Relationship Specialty Start Date End Date Vandana Lamb MD [address] [place] [address] PCP - General Family Medicine 12/02/24
== END 2025-04-22 13:55 | disposition home or self-care (01) ==
LOC: HO.HPS 12:59
PROVIDERS: PCP Family Medicine; Referring Provider Internal Medicine; Visit Provider Internal Medicine
DX: J44.9 Chronic obstructive pulmonary disease, unspecified (principal); J98.4 Other disorders of lung; E66.9 Obesity, unspecified; J96.91 Respiratory failure, unspecified with hypoxia; R06.09 Other forms of dyspnea; G47.33 Obstructive sleep apnea (adult) (pediatric)
CPT/HCPCS: 99213

== ENCOUNTER → 2025-04-22 12:58 | Outpatient (BNVA) | payer OTHER, SELFPAY | PROVIDERS: PCP Family Medicine; Visit Provider Internal Medicine | DX: J44.9 Chronic obstructive pulmonary disease, unspecified (principal); J98.4 Other disorders of lung; J96.91 Respiratory failure, unspecified with hypoxia; G47.33 Obstructive sleep apnea (adult) (pediatric); E66.9 Obesity, unspecified; Z87.891 Personal history of nicotine dependence; Z68.28 Body mass index [BMI] 28.0-28.9, adult; Z79.51 Long term (current) use of inhaled steroids; Z79.899 Other long term (current) drug therapy | CPT/HCPCS: 99212 ==